=== PATIENT | female | born 1990 | race Caucasian/White ===

== ENCOUNTER → 2019-07-27 13:20 | Outpatient (CLI) | payer OTHER, SELFPAY ==
--- NOTE | 2019-07-27 13:22 | MM_ITS ---
PROCEDURE: MM DIG MAMM BI DX W/CAD CLINICAL INDICATION: NIPPLE DISCHARGE, HIDRADENITIS, NODULE Bloody nipple discharge COMPARISON: US BREAST LT COMPLETE from 07/27/2019 US BREAST RT COMPLETE from 07/27/2019 TECHNIQUE: Standard images performed along with spot compression views and bilateral breast ultrasound. FINDINGS: Average fibroglandular tissue. No malignant appearing mass or malignant-appearing microcalcification. There is a well-circumscribed or oil cyst measuring 11 mm in the right breast inferior to the areolar region Right breast ultrasound: 1 cm well-circumscribed nodule anechoic with posterior shadowing consistent with a oil cyst noted on the mammogram. This is at 3 o'clock near the nipple Left breast ultrasound: No cystic or solid lesions evident. IMPRESSION: Benign findings. No evidence of malignancy. BI-RAD Category: 2 Benign Finding(s) FOLLOW-UP: 1YR 1 Year Follow-up (A letter has been sent to the patient regarding results of the study.) Dictated by: Ash Elias MD 07/29/2019 12:12 Electronically signed by Ash Elias MD in [place] 07/29/2019 12:12
== END ==
PROVIDERS: PCP Emergency Medicine; Visit Provider Nurse Practitioner
DX: N64.52 Nipple discharge (principal); L73.2 Hidradenitis suppurativa; N63.41 Unspecified lump in right breast, subareolar
CPT/HCPCS: 76641; 77066

== ENCOUNTER → 2019-11-06 13:10 | Outpatient (CLI) | payer OTHER, SELFPAY ==
[2019-11-06 14:27] LABS: Basophils # 0.1 K/mm3 (0-0.2); Basophils % 0.8 % (0.1-2.0); Eosinophils # 0.4 K/mm3 (0.0-0.4); Eosinophils % 5.5 % (0.1-12.0); Hematocrit 41.6 % (37.0-47.0); Hemoglobin 13.4 g/dL (12.2-16.2); Lymphocytes # 3.1 K/mm3 (0.7-4.5); Lymphocytes % 38.1 % (10-50); Mean Corpuscular HGB Conc 32.2 g/dL (31.8-35.4); Mean Corpuscular Hemoglobin 30.8 pg (27.0-31.2); Mean Corpuscular Volume 95.6 fl (81-99); Mean Platelet Volume 8.1 fl (7.4-10.4); Monocytes # 0.5 K/mm3 (0.1-1.0); Monocytes % 6.2 % (1.7-9.3); Neutrophils % 49.3 % (37.0-80.0); Platelet Count 441 K/mm3 (142-424); Red Blood Count 4.34 M/mm3 (4.20-5.40); Red Cell Distribution Width 13.9 % (11.5-17.5); White Blood Count 8.1 K/mm3 (4.8-10.8)
[2019-11-06 14:41] LABS: Chloride 104 mmol/L (98-107); Sodium 138 mmol/L (136-145)
[2019-11-06 14:44] LABS: Blood Urea Nitrogen 7 mg/dl (7-17); Carbon Dioxide 28 mmol/L (22.0-30.0); Estimated Glomerular Filt Rate 75 ml/min (>60); GFR (African American) 90 ML/MIN (>60)
[2019-11-06 14:45] LABS: Calcium 9.7 mg/dl (8.4-10.2); Glucose 88 mg/dl (74-100)
== END ==
PROVIDERS: Surgery; Visit Provider Surgery
DX: Z01.818 Encounter for other preprocedural examination (principal); N61.1 Abscess of the breast and nipple
CPT/HCPCS: 36415; 80048; 85025; 86850

== ENCOUNTER 2019-11-08 12:53 | Outpatient (CLI) | payer OTHER, SELFPAY | END 2019-11-08 13:10 | disposition home or self-care (01) | LOC: INF 12:53 | PROVIDERS: Visit Provider Surgery | DX: N61.1 Abscess of the breast and nipple (principal); Z48.00 Encounter for change or removal of nonsurgical wound dressing | CPT/HCPCS: G0463 ==

== ENCOUNTER 2019-11-11 13:43 | Outpatient (CLI) | payer OTHER, SELFPAY ==
[2019-11-11 13:43] VITALS: BP 119/80; RESP 20; O2SAT 96
[2019-11-11 13:50] VITALS: RESP 20; O2SAT 96
--- NOTE | 2019-11-11 15:08 | PC.NURSE ---
dressing change to left areola. minimal amount of packing removed and replaced. pt tolerated well.
== END 2019-11-11 13:50 | disposition home or self-care (01) ==
LOC: INF 13:45
PROVIDERS: PCP Family Medicine; Visit Provider Surgery
DX: Z48.01 Encounter for change or removal of surgical wound dressing (principal); N61.1 Abscess of the breast and nipple
CPT/HCPCS: G0463

== ENCOUNTER 2019-11-12 14:46 | Outpatient (CLI) | payer OTHER, SELFPAY ==
[2019-11-12 14:50] VITALS: RESP 22
[2019-11-12 15:20] VITALS: RESP 20
== END 2019-11-12 15:25 | disposition home or self-care (01) ==
LOC: INF 14:47
PROVIDERS: PCP Family Medicine; Visit Provider Surgery
DX: N61.1 Abscess of the breast and nipple (principal); Z48.01 Encounter for change or removal of surgical wound dressing
CPT/HCPCS: G0463

== ENCOUNTER 2019-11-13 13:28 | Outpatient (CLI) | payer OTHER, SELFPAY ==
--- NOTE | 2019-11-13 13:30 | PC.NURSE ---
1330-spoke with bj in 's office that pt's wound is healing well, no drainage, less than 1/4 inch of packing in wound. per delta from amberly's office ok to stop dressing changes; have pt clean in shower and cover with bandaid; f/u appointment 11/17/19 @ 0198.
== END 2019-11-13 13:37 | disposition home or self-care (01) ==
LOC: INF 13:28
PROVIDERS: Visit Provider Surgery
DX: N61.1 Abscess of the breast and nipple (principal)

== ENCOUNTER 2021-03-13 21:16 | Emergency (ER) | payer OTHER, SELFPAY ==
[2021-03-13 21:27] VITALS: PULSE 83; RESP 18; TEMP 36.8; O2SAT 98; BMI 50.1
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
[2021-03-13 22:33] VITALS: BP 121/70; PULSE 73; RESP 16; TEMP 36.8; O2SAT 99
== END 2021-03-13 22:34 | disposition home or self-care (01) ==
PROVIDERS: Emergency Provider Emergency Medicine; PCP Nurse Practitioner Family
DX: T76.21XA Adult sexual abuse, suspected, initial encounter (principal); F17.210 Nicotine dependence, cigarettes, uncomplicated
CPT/HCPCS: 99281

== ENCOUNTER 2021-05-30 09:44 | Emergency (ER) | payer OTHER, SELFPAY ==
[2021-05-30 09:50] VITALS: BP 117/54; PULSE 125; RESP 24; TEMP 36.9; O2SAT 98; BMI 51.0
--- NOTE | 2021-05-30 10:37 | HMH.EDUTC ---
[facility] [place] Clinical Impression: Bronchitis Sinusitis Qualifiers: Sinusitis location: unspecified location Chronicity: unspecified Qualified Code(s): J32.9 - Chronic sinusitis, unspecified Disposition: Home, Self-Care Condition on Discharge: Good Instructions: Sinusitis, Acute Bronchitis, DI for Sinusitis Additional Instructions: ? Start antibiotic today. Be sure to complete entire prescription even if feeling better ? Monitor temp. Tylenol every 4 hours as needed and / or ibuprofen every 6 hours as needed ( As long as your primary care physician has told you that it ok to take both. For fever/aches/pains ER if no less than 101 despite Tylenol or Motrin ? Humidifier/vaporizer or hot steamy shower ? Inhaler every 4-6 hours as needed like we discussed. If unsure how to use it, ask pharmacist to demonstrate how. Should help open airways and improve cough, wheezing, and shortness of breath ? Mucinex during the day for your cough and cough suppressant only at night. Be sure to drink lots of water. Insurance may not cover a prescriptions for mucinex. Might be cheaper to get 400mg tablets and take 2 tablet in the morning, mid-day and evening with lots of water. *Start steroid today. Helps with inflammation therefore, cough and wheezing. Follow directions on the package. Reviewed side effects. Patient reports taking them before. Follow up IMMEDIATELY for new or worsening of symptoms OR no noticeable improvement over the next 48-72 hours. 911 immediately for any life threatening symptoms such as chest pain or difficulty breathing Prescriptions: predniSONE [Deltasone 10mg tablet] 10 mg PO BID 5 Days #10 tab Transmission Status: Received by [id number] guaiFENesin [Mucinex 600mg tablet] 1 - 2 mg PO BID PRN #20 tab PRN Reason: Congestion Transmission Status: Received by [facility] Azithromycin [Z-Catalino 250mg Tab] 250 mg PO DIRECTED #6 tab Transmission Status: Received by [facility] Referrals: Katina Scott PA [Primary Care Provider] - As needed Forms: Work/School Release Time of Disposition: 10:59 Medical Decision Making - Pawan Inquiry Pt receiving controlled substance: No Pawan was queried for this patient: No Vital Signs: 05/30/21 09:50 05/30/21 10:55 Temperature 98.4 F 98.4 F Temperature Source Oral Pulse Rate 125 H Pulse Rate [Right Brachial] 125 H Respiratory Rate 24 24 Blood Pressure 117/54 L Blood Pressure [Right Arm] 117/54 L Blood Pressure Mean [Right Arm] 75 Blood Pressure Source [Right Arm] Automatic Cuff Blood Pressure Position [Right Arm] Sitting 02 Sat by Pulse Oximetry 98 Oxygen Delivery Method Room Air [facility] [place] - General Stated complaint: cough Time Seen by Provider: 05/30/21 10:37 Mode of Arrival: Ambulatory Source of Information: Patient Limitations: No Limitations Description of Symptoms (Recalled from Triage Doc. by RN): PATIENT C/O PRODUCTIVE COUGH AND CONGESTION X 2 DAYS HEENT Symptoms (Recalled from RN notes): No Resp Symptoms (Recalled from RN notes): Yes Skin Symptoms (Recalled from RN notes): No MS Symptoms (Recalled from RN notes): No Functional Status (Recalled from RN notes): WNL - History of Present Illness Provider Complaint: Patient states that she has been having some sinus pressure, cough that is productive at times and cough worse when she lays down States that she was tested for COVID about 2 days ago and it was negative States that she feel like she has sinus congestion that is trying to move into her chest and wanted to get it checked before it got too bad - Related Data Home Medications Medication Instructions Recorded Confirmed Amitriptyline HCl [Elavil 25mg 25 mg PO DAILY 05/30/21 05/30/21 tablet] Cariprazine HCl [Vraylar] 3 mg PO DAILY 05/30/21 05/30/21 buPROPion HCL [Bupropion HCl Sr] 150 mg PO BID 05/30/21 05/30/21 Previous Rx's Medication Instructions Recorded Azithromycin [Z-Catalino 250mg Tab
[2021-05-30 10:55] VITALS: BP 117/54; PULSE 125; RESP 24; TEMP 36.9; O2SAT 98
== END 2021-05-30 11:00 | disposition home or self-care (01) ==
PROVIDERS: Emergency Provider Nurse Practitioner; PCP Nurse Practitioner Family
DX: J40 Bronchitis, not specified as acute or chronic (principal); J32.9 Chronic sinusitis, unspecified
CPT/HCPCS: 99202; G0463

== ENCOUNTER 2022-07-28 09:29 | Emergency (ER) | payer OTHER, SELFPAY ==
[2022-07-28 09:57] VITALS: BP 127/77; PULSE 89; RESP 16; TEMP 37.3; O2SAT 99; BMI 51.0
[2022-07-28 10:05] LABS: UTC Strep Screen (Rapid) Negative (Negative)
--- NOTE | 2022-07-28 10:16 | EXP.UTC ---
Discharge Plan Disposition Patient Disposition: Home, Self-Care Condition: Good Prescriptions Prescriptions: New fluticasone propionate [fluticasone propionate] 50 mcg/actuation spray,suspension 1 spray intranasal DAILY Qty: 9.9 0RF No Action amitriptyline 25 MG tablet 25 mg PO DAILY cariprazine 3 MG capsule 3 mg PO DAILY bupropion HCl (smoking deter) 150 MG tablet extended release 12 hr 150 mg PO BID azithromycin 250 MG tablet 250 mg PO DIRECTED Qty: 6 0RF Rx Instructions: Take two (2) tablets on day #1, then one (1) tablet day #2 thru #5 guaifenesin 600 MG tablet extended release 12hr 1 - 2 mg PO BID PRN (Reason: Congestion) Qty: 20 0RF prednisone 10 MG tablet 10 mg PO BID 5 Days Qty: 10 0RF Referrals Follow up/Referrals: Katina Scott PA [Primary Care Provider] - See instructions Activity Restrictions/Add. Instructions Additional Instructions/Restrictions: No sign of a bacterial infection. Likely viral. Viruses can take 7-14 days to run their course. Nasal saline and bulb syringe or nose Celestina to remove nasal drainage to help with nasal congestion. Hard to eat, drink, sleep with nasal congestion so important to keep this cleaned out. Monitor temp. Tylenol or Motrin as needed for pain or fever Encourage fluids, water, Gatorade, Powerade, Pedialyte if infant/toddler/child Warm salt water gargles Warm fluids Sore throat lozenges Sleep elevated Humidifier/vaporizer Follow-up immediately for new or worsening symptoms or no noticeable improvement over the next 48-72 hours. Clinical Impressions Clinical Impression: Upper respiratory infection, viral Instructions Patient Instructions: DI for Viral Upper Respiratory Infection -- Adult Discharge ED Provider: Clair ([facility])[place] [facility] [place] General Stated complaint: Sore throat, congestion, ear pain Mode of Arrival: Ambulatory Source of Information: Patient Limitations: No Limitations Time Seen by Provider: 07/28/22 10:16 Description of Symptoms (Recalled from Triage Doc. by RN): pt comes in with c/o congestion, bilateral ear ache, sore throat. symptoms began wednesday night. HEENT Symptoms (Recalled from RN notes): Yes Resp Symptoms (Recalled from RN notes): Yes Skin Symptoms (Recalled from RN notes): No MS Symptoms (Recalled from RN notes): No Functional Status (Recalled from RN notes): n/a History of Present Illness Provider Complaint: 32 yr old female presents with c/o congestion, bilateral ear ache, sore throat. symptoms began Wednesday night. pt states her kids have flu and strep Related Data Home Medications Medication Instructions Recorded Confirmed amitriptyline 25 mg tablet 25 mg PO DAILY . 05/30/21 05/30/21 bupropion HCl (smoking deter) 150 150 mg PO BID . 05/30/21 05/30/21 mg tablet,12 hr sustained-release(smoking deterrent) cariprazine 3 mg capsule 3 mg PO DAILY . 05/30/21 05/30/21 Previous Rx's Medication Instructions Recorded azithromycin 250 mg tablet 250 mg PO DIRECTED #6 tabs 05/30/21 guaifenesin 600 mg tablet, 1 - 2 mg PO BID PRN Congestion #20 05/30/21 extended release 12 hr tabs prednisone 10 mg tablet 10 mg PO BID 5 days #10 tabs 05/30/21 fluticasone propionate 50 1 spray intranasal DAILY #9.9 mL 07/28/22 mcg/actuation nasal spray,suspension Allergies Allergy/AdvReac Type Severity Reaction Status Date / Time No Known Allergies Allergy Verified 07/28/22 10:00 Worker's Comp Is this a Worker's Comp case?: No [facility] Disclaimer: The information contained in this section may have been updated after the patient was seen, as this information can be updated by other users. Social History , [employer]) Smoking Status: Current every day smoker tobacco type: cigarettes packs per day: 1 alcohol intake: current substance use type: denies use current occupational status: employed Travel in the last 8 weeks:
[2022-07-28 10:34] VITALS: BP 127/77; PULSE 89; RESP 16; TEMP 37.3
== END 2022-07-28 10:35 | disposition home or self-care (01) ==
PROVIDERS: Emergency Provider Nurse Practitioner Family; PCP Nurse Practitioner Family
DX: J06.9 Acute upper respiratory infection, unspecified (principal)
CPT/HCPCS: 87275; 87276; 87880; 99212; G0463

== ENCOUNTER 2022-11-24 08:50 | Emergency (ER) | payer OTHER, SELFPAY ==
[2022-11-24 09:00] VITALS: BP 148/86; PULSE 72; RESP 20; TEMP 37; O2SAT 98; BMI 43.7
--- NOTE | 2022-11-24 09:34 | EXP.UTC ---
Discharge Plan Disposition Patient Disposition: Home, Self-Care Condition: Good Prescriptions Prescriptions: New clindamycin HCl 300 mg capsule 300 mg PO Q8H 10 Days Qty: 30 0RF No Action buspirone 10 mg tablet 10 mg PO DAILY bupropion HCl 150 mg tablet extended release 24 hr 150 mg PO DAILY cariprazine 3 MG capsule 3 mg PO DAILY Referrals Follow up/Referrals: Katina Scott PA [Primary Care Provider] - See instructions Beni Álvraez MD [Staff Physician] - See instructions Activity Restrictions/Add. Instructions Additional Instructions/Restrictions: *Start antibiotic(s) immediately and be sure to take as ordered for the FULL length of time although you may be feeling better or start to see improvement in the next 24-48 hours *Monitor closely. Outlined redness so that you can monitor easier. Follow up immediately for new or worsening symptoms including but not limited to redness, swelling, streaking from site fever or chills. *Warm compress 15 minutes 3-4 times day *Never squeeze or pop these on your own. Seek immediate medical attention next time this occurs *Monitor Temp. Tylenol every 4 hours as needed and ibuprofen every 6 hours as needed (as long as your primary care doctor has told you that it is ok to take both. For fever, aches, pain. ER if no less that 101 despite Tylenol and ibuprofen ?Follow up with your family doctor/primary care physician in the next 48-72 hours if no improvement Call the General surgery office and make appointment Clinical Impressions Clinical Impression: Abscess of breast, right Instructions Patient Instructions: DI for Skin Abscess, Clindamycin Discharge ED Provider: Denise Washington [facility] General Stated complaint: RT breast inflammation Mode of Arrival: Ambulatory Source of Information: Patient Limitations: No Limitations Time Seen by Provider: 11/24/22 09:34 Description of Symptoms (Recalled from Triage Doc. by RN): right breast infection red and swollen HEENT Symptoms (Recalled from RN notes): No Resp Symptoms (Recalled from RN notes): No Skin Symptoms (Recalled from RN notes): Yes MS Symptoms (Recalled from RN notes): No Functional Status (Recalled from RN notes): n/a History of Present Illness Provider Complaint: Patient states that she noticed she had a hard area close to her nipple on her right breast that is starting to get larger and more red States that she has hx of breast abscess in her left breast that was similar to what she has now and had to see general surgery to have I&D of it so she was hoping to catch it early to get it treated Denies fever, denies chills Related Data Home Medications Medication Instructions Recorded Confirmed cariprazine 3 mg capsule 3 mg PO DAILY . 05/30/21 11/24/22 bupropion HCl 150 mg 24 hr tablet, 150 mg PO DAILY . 11/24/22 11/24/22 extended release buspirone 10 mg tablet 10 mg PO DAILY . 11/24/22 11/24/22 Previous Rx's Medication Instructions Recorded clindamycin HCl 300 mg capsule 300 mg PO Q8H 10 days #30 caps 11/24/22 Allergies Allergy/AdvReac Type Severity Reaction Status Date / Time No Known Allergies Allergy Verified 11/24/22 09:19 Worker's Comp Is this a Worker's Comp case?: No [facility] Disclaimer: The information contained in this section may have been updated after the patient was seen, as this information can be updated by other users. Social History Smoking Status: Current every day smoker tobacco type: cigarettes packs per day: 1 alcohol intake: current substance use type: denies use current occupational status: employed Travel in the last 8 weeks: None household members: spouse housing: house current occupation: appliance repair current occupational exposures/hazards: No caffeine: Yes ROS Obtained: Yes All systems reviewed & no additional complaints except as documented and Yes Systems reviewed as
[2022-11-24 09:46] VITALS: BP 148/86; PULSE 72; RESP 20; TEMP 37; O2SAT 98
== END 2022-11-24 09:45 | disposition home or self-care (01) ==
PROVIDERS: Emergency Provider Nurse Practitioner; PCP Nurse Practitioner Family
DX: N61.1 Abscess of the breast and nipple (principal); F17.210 Nicotine dependence, cigarettes, uncomplicated
CPT/HCPCS: 99212; 99214; G0463

== ENCOUNTER 2023-01-18 23:21 | Emergency (ER) | payer OTHER, SELFPAY ==
[2023-01-18 23:32] VITALS: BP 169/89; PULSE 103; RESP 16; TEMP 37; O2SAT 100; BMI 56.7
--- NOTE | 2023-01-18 23:44 | HMH.EDSKAF ---
Discharge Plan Disposition Patient Disposition: Home, Self-Care Prescriptions Prescriptions: New sulfamethoxazole-trimethoprim [Bactrim DS] 800-160 mg Tablet 1 tab PO Q12H Qty: 20 0RF cefdinir [cefdinir] 300 mg capsule 300 mg PO BID Qty: 20 0RF ketorolac 10 mg tablet 10 mg PO Q8H PRN (Reason: pain) 3 Days Qty: 10 0RF No Action buspirone 10 mg tablet 10 mg PO DAILY bupropion HCl 150 mg tablet extended release 24 hr 150 mg PO DAILY Referrals Follow up/Referrals: Katina Scott PA [Primary Care Provider] - See instructions Clinical Impressions Clinical Impression: Mastitis in female Instructions Patient Instructions: DI for Mastitis Discharge ED Provider: Alanna (ED)Tyrone Skin/Abscess/FB HPI General Chief complaint: Skin/Abscess/Foreign Body Stated complaint: Right breast infected Time Seen by Provider: 01/18/23 23:35 Mode of Arrival: Ambulatory Source of Information: Patient and Medical Record Limitations: No Limitations Description of Symptoms (Recalled from ER Triage Doc. by RN): Pt presents to ed c c/o right breast redness and pain. Redness began 3 days ago. Pain began today. Patient was seen in [facility] in November for infection in the same breast and was given antibiotics. Pt states that she didnt finish her antibiotics at that time so she began to take them (Clindamycin) again 3 days ago. States that the pain has gotten so severe that she is unable to sleep. History of Present Illness HPI narrative: rt breast reddness and pain w/o d/c - has happened in past - sx over the last 3 days MD complaint: other (breast infection) Onset (ago): day(s) Severity: moderate Quality: sharp Consistency: intermittent Associated symptoms: denies other symptoms Related Data Home Medications Medication Instructions Recorded Confirmed bupropion HCl 150 mg 24 hr tablet, 150 mg PO DAILY Depression 11/24/22 01/18/23 extended release buspirone 10 mg tablet 10 mg PO DAILY Anxiety 11/24/22 01/18/23 Previous Rx's Medication Instructions Recorded cefdinir 300 mg capsule 300 mg PO BID #20 caps 01/19/23 ketorolac 10 mg tablet 10 mg PO Q8H PRN pain 3 days #10 01/19/23 tabs sulfamethoxazole 800 1 tab PO Q12H #20 tabs 01/19/23 mg-trimethoprim 160 mg tablet (Bactrim DS) Allergies Allergy/AdvReac Type Severity Reaction Status Date / Time No Known Allergies Allergy Verified 11/24/22 09:19 [facility] Disclaimer: The information contained in this section may have been updated after the patient was seen, as this information can be updated by other users. Social History Smoking Status: Current every day smoker tobacco type: cigarettes packs per day: 1 alcohol intake: current substance use type: denies use current occupational status: employed Travel in the last 8 weeks: None household members: spouse housing: house current occupation: appliance repair current occupational exposures/hazards: No caffeine: Yes ROS Obtained: Yes All systems reviewed & no additional complaints except as documented Physical Exam General General appearance: alert Head Head exam: normocephalic Eye Eye exam: Present PERRL and EOMI ENT ENT exam: Present mucous membranes moist Neck Neck exam: Present trachea midline Expanded Chest Exam Breast: right: erythema, swelling and tenderness Respiratory Respiratory exam: Absent respiratory distress Cardiovascular Cardiovascular exam: Present regular rate Abdominal Exam Abdominal exam: Present soft Extremities Exam Extremities exam: Present full ROM Neurological Exam Neurological exam: Present alert, oriented X3 and CN II-XII intact; Absent motor sensory deficit Psychiatric Psychiatric exam: Present normal affect Skin Skin exam: Present other (cellulitis rt breast ) Medical Decision Making Medical Records Medical records reviewed: Yes I reviewed the patient's medical records. Feli
[2023-01-18 23:59] LABS: Basophils # 0.1 K/mm3 (0-0.2); Basophils % 0.6 % (0.1-2.0); Eosinophils # 0.5 K/mm3 (0.0-0.4); Eosinophils % 3.5 % (0.1-12.0); Hematocrit 36.7 % (37.0-47.0); Hemoglobin 11.5 g/dL (12.2-16.2); Lymphocytes # 4.3 K/mm3 (0.7-4.5); Lymphocytes % 29.4 % (10-50); Mean Corpuscular HGB Conc 31.3 g/dL (31.8-35.4); Mean Corpuscular Hemoglobin 30.8 pg (27.0-31.2); Mean Corpuscular Volume 98.2 fl (81-99); Mean Platelet Volume 7.7 fl (7.4-10.4); Neutrophils # 8.8 K/mm3 (1.8-7.8); Neutrophils % 59.6 % (37.0-80.0); Platelet Count 324 K/mm3 (142-424); Red Blood Count 3.74 M/mm3 (4.20-5.40); Red Cell Distribution Width 16.6 % (11.5-17.5); White Blood Count 14.8 K/mm3 (4.8-10.8)
[2023-01-19 00:11] LABS: Lactic Acid 1.6 mmol/L (0.7-2.1)
[2023-01-19 00:12] LABS: Alanine Aminotransferase 29 U/L (12-78); Albumin Level 3.5 g/dl (3.5-5.0); Albumin/Globulin Ratio 1.1 (1.1-1.8); Alkaline Phosphatase 67 U/L (38-126); Anion Gap 13.3 mEq/L (5-15); Aspartate Amino Transferase 29 U/L (14-36); Bilirubin,Total 0.2 mg/dl (0.2-1.3); Blood Urea Nitrogen 4 mg/dl (7-17); Calcium 8.2 mg/dl (8.4-10.2); Carbon Dioxide 27 mmol/L (22.0-30.0); Chloride 102 mmol/L (98-107); Creatinine Clearance Estimated 77 mL/min (50-200); Estimated Glomerular Filt Rate 84 ml/min (>60); GFR (African American) 101 ML/MIN (>60); Globulin 3.2 g/dL (1.3-3.2); Glucose 99 mg/dl (74-100); Potassium 3.3 mmoL/L (3.5-5.1); Sodium 139 mmol/L (136-145); Total Protein,Serum 6.7 g/dl (6.3-8.2)
--- NOTE | 2023-01-19 00:40 | PC.NURSE ---
Spoke to Horace with [facility] pharmacy. He states 2.5g Vancomycin NOW dose for one time
[2023-01-19 03:00] VITALS: BP 168/88; PULSE 88; RESP 18; TEMP 36.7; O2SAT 98
== END 2023-01-19 03:22 | disposition home or self-care (01) ==
PROVIDERS: Emergency Provider Emergency Medicine; PCP Nurse Practitioner Family
DX: N61.0 Mastitis without abscess (principal); F17.210 Nicotine dependence, cigarettes, uncomplicated
CPT/HCPCS: 80053; 83605; 85025; 87040; 96361; 96365; 96375; 99284; 99285; J3370

== ENCOUNTER 2023-01-20 17:17 | Inpatient (IN) | payer OTHER, SELFPAY ==
[2023-01-20 17:18] VITALS: BP 166/58; PULSE 79; RESP 17; TEMP 36.7; O2SAT 99; BMI 56.2
--- NOTE | 2023-01-20 17:29 | HMH.EDGENADL ---
Discharge Plan Disposition Patient Disposition: Admitted Chief Complaint: Wound/Laceration Prescriptions Prescriptions: No Action buspirone 10 mg tablet 10 mg PO DAILY bupropion HCl 150 mg tablet extended release 24 hr 150 mg PO DAILY sulfamethoxazole-trimethoprim [Bactrim DS] 800-160 mg Tablet 1 tab PO Q12H Qty: 20 0RF cefdinir [cefdinir] 300 mg capsule 300 mg PO BID Qty: 20 0RF ketorolac 10 mg tablet 10 mg PO Q8H PRN (Reason: pain) 3 Days Qty: 10 0RF Referrals Follow up/Referrals: Katina Scott PA [Primary Care Provider] - See instructions Clinical Impressions Clinical Impression: Mastitis in female Instructions Patient Instructions: DI for Laceration Repair Discharge ED Provider: Luis Samuels Adult HPI General Chief complaint: Wound/Laceration Stated complaint: right breast pain Time Seen by Provider: 01/20/23 17:24 Mode of Arrival: Ambulatory Source of Information: Patient Limitations: No Limitations Description of Symptoms (Recalled from ER Triage Doc. by RN): 32 F presents back to our ED for a worsening right breast pain and infection. She was seen here a few days ago and given IV antibiotics. She was sent home with PO pain medications and 2 oral antibiotics. She feels the infection has spread. History of Present Illness HPI narrative: The patient presents to the emergency department complaining of worsening redness and pain in her right breast. She has had nipple piercings in the past. She has removed these piercings. She was seen in this emergency department 2 days ago and was given intravenous vancomycin and sent home with 2 oral antibiotics. She states that the symptoms have been ongoing for the last 4 days. She has had similar symptoms in the past and was diagnosed with mastitis. She denies breast-feeding. Related Data Home Medications Medication Instructions Recorded Confirmed bupropion HCl 150 mg 24 hr tablet, 150 mg PO DAILY Depression 11/24/22 01/18/23 extended release buspirone 10 mg tablet 10 mg PO DAILY Anxiety 11/24/22 01/18/23 Previous Rx's Medication Instructions Recorded cefdinir 300 mg capsule 300 mg PO BID #20 caps 01/19/23 ketorolac 10 mg tablet 10 mg PO Q8H PRN pain 3 days #10 01/19/23 tabs sulfamethoxazole 800 1 tab PO Q12H #20 tabs 01/19/23 mg-trimethoprim 160 mg tablet (Bactrim DS) Allergies Allergy/AdvReac Type Severity Reaction Status Date / Time No Known Allergies Allergy Verified 11/24/22 09:19 [facility] Disclaimer: The information contained in this section may have been updated after the patient was seen, as this information can be updated by other users. Social History Smoking Status: Current every day smoker tobacco type: cigarettes packs per day: 1 alcohol intake: current substance use type: denies use current occupational status: employed Travel in the last 8 weeks: None household members: spouse housing: house current occupation: appliance repair current occupational exposures/hazards: No caffeine: Yes ROS Obtained: Yes All systems reviewed & no additional complaints except as documented Physical Exam General General appearance: alert Head Head exam: atraumatic Eye Eye exam: Present normal appearance ENT ENT exam: Present normal exam Neck Neck exam: Present normal inspection and full ROM; Absent tenderness or meningismus Chest Chest inspection: Present normal inspection, symmetric chest wall rise and other (There is erythema of the right breast. There is induration without fluctuance under the right areola. There is no axillary lymphadenopathy. The left breast is normal in appearance.); Absent tenderness Respiratory Respiratory exam: Present normal lung sounds bilaterally; Absent respiratory distress or accessory muscle use Cardiovascular Cardiovascular exam: Present regular rate, normal rhythm and normal hear
[2023-01-20 18:09] LABS: Chloride 102 mmol/L (98-107); Potassium 4.1 mmoL/L (3.5-5.1); Sodium 136 mmol/L (136-145)
[2023-01-20 18:12] LABS: Anion Gap 11.1 mEq/L (5-15); Blood Urea Nitrogen 5 mg/dl (7-17); Calcium 8.5 mg/dl (8.4-10.2); Carbon Dioxide 27 mmol/L (22.0-30.0); Creatinine Clearance Estimated 68 mL/min (50-200); Estimated Glomerular Filt Rate 73 ml/min (>60); GFR (African American) 88 ML/MIN (>60); Glucose 83 mg/dl (74-100)
[2023-01-20 18:13] LABS: Basophils # 0.1 K/mm3 (0-0.2); Basophils % 0.5 % (0.1-2.0); Eosinophils # 0.4 K/mm3 (0.0-0.4); Eosinophils % 2.3 % (0.1-12.0); Hematocrit 36.4 % (37.0-47.0); Hemoglobin 11.4 g/dL (12.2-16.2); Lymphocytes # 5.6 K/mm3 (0.7-4.5); Lymphocytes % 29.2 % (10-50); Mean Corpuscular HGB Conc 31.3 g/dL (31.8-35.4); Mean Corpuscular Hemoglobin 30.6 pg (27.0-31.2); Mean Corpuscular Volume 97.7 fl (81-99); Monocytes % 5.3 % (1.7-9.3); Neutrophils # 12.2 K/mm3 (1.8-7.8); Neutrophils % 62.8 % (37.0-80.0); Platelet Count 340 K/mm3 (142-424); Red Blood Count 3.72 M/mm3 (4.20-5.40); Red Cell Distribution Width 16.9 % (11.5-17.5); White Blood Count 19.4 K/mm3 (4.8-10.8)
[2023-01-20 18:16] LABS: MANUAL DIFFERENTIAL MANUAL DIFFERENTIAL (MANUAL DIFF)
[2023-01-20 18:34] LABS: Eosinophils % 2 % (0-3); Lymphocytes % 30 % (10-50); Monocytes % 7 % (2-9); Neutrophils % 61 % (42-76); Total Cells Counted 100
[2023-01-20 18:35] LABS: Platelet Estimate Normal; Poikilocytosis 1+
--- NOTE | 2023-01-20 18:50 | PC.NURSE ---
RCP NOTIFIED OF ADMISSION
[2023-01-20 18:54] LABS: Coronavirus 19, PCR Not Detected (NotDetected); Influenza A, PCR Not Detected (NotDetected); Influenza B, PCR Not Detected (NotDetected)
--- NOTE | 2023-01-20 19:44 | PC.NURSE ---
report given to AMAURY Simental
[2023-01-20 19:45] VITALS: BP 135/76; PULSE 71; RESP 16; TEMP 36.8; O2SAT 98
[2023-01-20 20:00] VITALS: BP 127/81; PULSE 86; RESP 20; TEMP 37.1; O2SAT 100
--- NOTE | 2023-01-20 20:35 | EXP.HP ---
History of Present Illness *Admission Date: 01/20/23 *Reason for visit:: Abscess of right breast *History of present illness: 32 year old female who presented to the ED for c/o right breast pain and failed outpatient therapy treatment. PMHX of anxiety and obesity. The patient presented to the ED at [facility] on 01/19 for same c/o right breast pain with swelling and redness. The redness started three days prior to 01/19. She was given IV vancomycin and sent home with oral cefdinir and Bactrim. The patient returned today to the ED with failure in improvement of condition. She was given IV vancomycin and the ED physician spoke with the hospitalist team for medical admission. The patient was admitted to the medical floor. She has a history of having a similar infection in her left breast that required surgical I and D three years prior. She will be given additional antibiotic coverage and will receive an ultrasound in the A.M and surgical consult. [facility] Disclaimer: The information contained in this section may have been updated after the patient was seen, as this information can be updated by other users. Medical History (Updated 01/20/23 @ 20:57 by ALLYSON Wu) Anxiety and depression Left breast abscess Surgical History (Updated 01/20/23 @ 20:44 by ALLYSON Wu) History of incision and drainage Social History (Updated 01/20/23 @ 22:12 by Jeannette Blanchard RN) Smoking Status: Current every day smoker tobacco type: cigarettes packs per day: 1 alcohol intake: current substance use type: denies use current occupational status: employed Travel in the last 8 weeks: None household members: spouse housing: house current occupation: appliance repair current occupational exposures/hazards: No caffeine: Yes Review of Systems Review of Systems Review of systems:: pertinent systems reviewed and negative unless documented below Constitutional Constitutional: Reports system reviewed and no additional complaints, except as documented Eyes Eyes: Reports system reviewed and no additional complaints, except as documented ENT Ears, Nose, Mouth, and Throat: Reports system reviewed and no additional complaints, except as documented *Cardiovascular Cardiovascular: Reports system reviewed and no additional complaints, except as documented *Respiratory Respiratory: Reports system reviewed and no additional complaints, except as documented *Gastrointestinal Gastrointestinal: Reports system reviewed and no additional complaints, except as documented *Genitourinary Genitourinary: Reports system reviewed and no additional complaints, except as documented *Musculoskeletal Musculoskeletal: Reports system reviewed and no additional complaints, except as documented Integumentary/Breasts Skin/Breast: Reports erythema (right), Reports skin swelling (right) and Reports breast pain (right) *Neurologic Neurologic: Reports system reviewed and no additional complaints, except as documented Psychiatric Psychiatric: Reports system reviewed and no additional complaints, except as documented Endocrine Endocrine: Reports system reviewed and no additional complaints, except as documented Hematologic/Lymphatic Hematologic/Lymphatic: Reports system reviewed and no additional complaints, except as documented Allergic/Immunologic Allergic/Immunologic: Reports system reviewed and no additional complaints, except as documented Meds Home Medications and Allergies Home Medications Medication Instructions Recorded Confirmed Type bupropion HCl 150 mg 24 hr tablet, 150 mg PO AM Mood 11/24/22 01/21/23 History extended release buspirone 10 mg tablet 10 mg PO PM Anxiety 11/24/22 01/21/23 History cariprazine 3 mg capsule (Vraylar) 3 mg PO DAILY Mood 01/20/23 01/20/23 History cefdinir 300 mg capsule 300 mg PO BID Infection 01/20/23 01/20/23 History sulfamethoxazole 800 1 tab PO Q12H Infection 01/20/23 01/20/23 History mg-trimethoprim 160 mg tab
[2023-01-21] VITALS (20 sets, daily range): BP systolic 104–146; BP diastolic 55–92; PULSE 74–94; RESP 16–22; TEMP 36.1–37.3; O2SAT 92–99; BMI 56.5
--- NOTE | 2023-01-21 02:35 | PC.NURSE ---
Pt c/o pain. IV flushed well with NS but once Toradol was pushed into line, pt c/o of burning sensation. IV infiltrated. New IV inserted to left FA and left hand IV removed. Gilbert Ricketts notified - states she will order a one time dose 30mg Toradol to be given now.
--- NOTE | 2023-01-21 06:30 | US_ITS ---
PROCEDURE INFORMATION: Exam: US Right Breast, Complete, Abscess Evaluation Exam date and time: 01/21/2023 7:10 AM Age: 32 years old Clinical indication: Right; Breast pain; Additional info: Abcess . Patient currently on antibiotics TECHNIQUE: Imaging protocol: Right Ultrasound of the breast with image documentation. All quadrants and retroareolar regions evaluated. Exam focused on the search and evaluation for abscess. Exam is an emergent request and a non-BIRADS study. COMPARISON: US BREAST RT COMPLETE 07/27/2019 2:34 PM FINDINGS: Sonographic images of the right breast including the retroareolar region, all 4 quadrants and the axilla demonstrates diffuse breast edema and skin thickening with a focal complex fluid collection in the immediate right retroareolar region . The complex cystic mass extends to the overlying nipple areolar complex and measures approximately 4.3 x 4.1 x 4.1 cm in dimension. No axillary adenopathy. IMPRESSION: Diffuse breast edema with a complex fluid collection in the immediate right retroareolar region. Findings are most consistent with an abscess. Surgical consultation for potential incision and drainage/biopsy are recommended. ASSESSMENT: BI-RADS Category 4: Suspicious
[2023-01-21 06:46] LABS: Basophils # 0.1 K/mm3 (0-0.2); Basophils % 0.4 % (0.1-2.0); Eosinophils # 0.4 K/mm3 (0.0-0.4); Eosinophils % 2.6 % (0.1-12.0); Hemoglobin 11.2 g/dL (12.2-16.2); Lymphocytes # 3.3 K/mm3 (0.7-4.5); Lymphocytes % 21.5 % (10-50); Mean Corpuscular HGB Conc 31.1 g/dL (31.8-35.4); Mean Corpuscular Hemoglobin 30.8 pg (27.0-31.2); Mean Corpuscular Volume 99.1 fl (81-99); Mean Platelet Volume 7.9 fl (7.4-10.4); Monocytes # 0.9 K/mm3 (0.1-1.0); Neutrophils # 10.7 K/mm3 (1.8-7.8); Neutrophils % 69.6 % (37.0-80.0); Platelet Count 313 K/mm3 (142-424); Red Blood Count 3.63 M/mm3 (4.20-5.40); White Blood Count 15.4 K/mm3 (4.8-10.8)
[2023-01-21 06:49] LABS: MANUAL DIFFERENTIAL MANUAL DIFFERENTIAL (MANUAL DIFF)
[2023-01-21 06:55] LABS: Chloride 105 mmol/L (98-107)
[2023-01-21 06:56] LABS: Potassium 4.2 mmoL/L (3.5-5.1); Sodium 138 mmol/L (136-145)
[2023-01-21 06:58] LABS: Alanine Aminotransferase 37 U/L (12-78); Alkaline Phosphatase 89 U/L (38-126); Anion Gap 8.2 mEq/L (5-15); Aspartate Amino Transferase 49 U/L (14-36); Bilirubin,Total 0.3 mg/dl (0.2-1.3); Blood Urea Nitrogen 6 mg/dl (7-17); Carbon Dioxide 29 mmol/L (22.0-30.0); Creatinine Clearance Estimated 68 mL/min (50-200); Estimated Glomerular Filt Rate 73 ml/min (>60); GFR (African American) 88 ML/MIN (>60)
[2023-01-21 06:59] LABS: Albumin Level 3.1 g/dl (3.5-5.0); Albumin/Globulin Ratio 0.9 (1.1-1.8); Calcium 7.9 mg/dl (8.4-10.2); Globulin 3.4 g/dL (1.3-3.2); Glucose 84 mg/dl (74-100); Magnesium 1.9 mg/dl (1.6-2.3); Total Protein,Serum 6.5 g/dl (6.3-8.2)
[2023-01-21 07:07] LABS: Anisocytosis 1+; Eosinophils % 4 % (0-3); Lymphocytes % 26 % (10-50); Macrocytosis 1+; Monocytes % 4 % (2-9); Neutrophils % 66 % (42-76); Ovalocytes 1+; Platelet Estimate Normal; Total Cells Counted 100
--- NOTE | 2023-01-21 07:36 | EXP.SURG.CON ---
History of Present Illness *Admission Date: 01/20/23 *History of present illness: Patient is a 32-year-old female from [place] whom I had seen in the past and October 2019 for left breast abscess. At that time she underwent attempted aspiration under anesthesia with limited incision and drainage. She had previous history of bilateral nipple piercings. She had remove these after her last infection. Recently she had them pierced once again. She developed right breast redness and pain and removed them. She presented to the emergency department on 01/18/2023 with complaints of right breast redness and pain. This had begun approximately 3 days prior to presentation she attempted to take some leftover clindamycin. At that time her white blood cell count was 14,800. She was diagnosed with mastitis and given dose of vancomycin and prescription for cefdinir and Bactrim. She presented back to the emergency department yesterday on 01/20/2023 with worsening right breast pain. White blood cell count was 19,400. She was admitted to the hospitalist service and surgical consultation was ordered. Patient is a smoker. Not breast-feeding. [facility] Disclaimer: The information contained in this section may have been updated after the patient was seen, as this information can be updated by other users. Medical History (Updated 01/20/23 @ 20:57 by ALLYSON Wu) Anxiety and depression Left breast abscess Surgical History (Updated 01/20/23 @ 20:44 by ALLYSON Wu) History of incision and drainage Social History (Updated 01/20/23 @ 22:12 by Jeannette Blanchard RN) Smoking Status: Current every day smoker tobacco type: cigarettes packs per day: 1 alcohol intake: current substance use type: denies use current occupational status: employed Travel in the last 8 weeks: None household members: spouse housing: house current occupation: appliance repair current occupational exposures/hazards: No caffeine: Yes Review of Systems *Neurologic Neurologic: Reports system reviewed and no additional complaints, except as documented Meds Home Medications and Allergies Home Medications Medication Instructions Recorded Confirmed Type bupropion HCl 150 mg 24 hr tablet, 150 mg PO AM Mood 11/24/22 01/21/23 History extended release buspirone 10 mg tablet 10 mg PO PM Anxiety 11/24/22 01/21/23 History cariprazine 3 mg capsule (Vraylar) 3 mg PO DAILY Mood 01/20/23 01/20/23 History cefdinir 300 mg capsule 300 mg PO BID Infection 01/20/23 01/20/23 History sulfamethoxazole 800 1 tab PO Q12H Infection 01/20/23 01/20/23 History mg-trimethoprim 160 mg tablet (Bactrim DS) amitriptyline 10 mg tablet 10 mg PO DAILYP PRN Mood 01/21/23 01/21/23 History atomoxetine 60 mg capsule 60 mg PO DAILY Mood 01/21/23 01/21/23 History fluoxetine 40 mg capsule 40 mg PO AM Mood 01/21/23 01/21/23 History folic acid 400 mcg tablet 400 mcg PO DAILY Supplement 01/21/23 01/21/23 History ketorolac 10 mg tablet 10 mg PO Q8H PRN Pain 01/21/23 01/20/23 History New Prescriptions to Start Prescriptions: Allergies Allergy/AdvReac Type Severity Reaction Status Date / Time No Known Allergies Allergy Verified 11/24/22 09:19 Exam (Inpt) Vital signs and Labs for Last 24 Hours: Temp Pulse Resp BP Pulse Ox 99.2 F 80 19 112/67 96 01/21/23 04:00 01/21/23 04:00 01/21/23 04:00 01/21/23 04:00 01/21/23 04:00 Laboratory Results - last 24 hr 01/20/23 17:54: WBC 19.4 H D, RBC 3.72 L, Hgb 11.4 L, Hct 36.4 L, MCV 97.7, MCH 30.6, MCHC 31.3 L, RDW 16.9, Plt Count 340, MPV 8.0, Neut % (Auto) 62.8, Lymph % (Auto) 29.2, [place] % (Auto) 5.3, Eos % (Auto) 2.3, Baso % (Auto) 0.5, Neut # (Auto) 12.2 H, Lymph # (Auto) 5.6 H, [place] # (Auto) 1.0, Eos # (Auto) 0.4, Baso # (Auto) 0.1, Total Counted 100, Neutrophils % (Manual) 61, Lymphocytes % (Manual) 30, Monocytes % (Manual) 7, Eosinophils % (Manual) 2, Platelet Estimate Normal, Poikilocytosis
--- NOTE | 2023-01-21 07:57 | EXP.PHA.CONS ---
Pharmacy Consult Date: 01/21/23 Time: 07:59 Referring provider: DR DIALLO Reason for Consult:: VANCOMYCIN DOSING CONSULT Allergies Allergy/AdvReac Type Severity Reaction Status Date / Time No Known Allergies Allergy Verified 11/24/22 09:19 Home Medications Medication Instructions Recorded Confirmed Type bupropion HCl 150 mg 24 hr tablet, 150 mg PO DAILY Depression 11/24/22 01/20/23 History extended release buspirone 10 mg tablet 10 mg PO DAILY Anxiety 11/24/22 01/20/23 History ketorolac 10 mg tablet 10 mg PO Q8H PRN pain 3 days #10 01/19/23 01/20/23 Rx tabs cariprazine 3 mg capsule (Vraylar) 3 mg PO DAILY MOOD DISORDER 01/20/23 01/20/23 History cefdinir 300 mg capsule 300 mg PO BID ANTIBIOTIC 01/20/23 01/20/23 History sulfamethoxazole 800 1 tab PO Q12H ANTIBIOTIC 01/20/23 01/20/23 History mg-trimethoprim 160 mg tablet (Bactrim DS) New Prescriptions to Start Prescriptions: Height: 1.55 m Weight: 135.851 kg Laboratory Results:: Laboratory Results - last 24 hr 01/20/23 17:54: WBC 19.4 H D, RBC 3.72 L, Hgb 11.4 L, Hct 36.4 L, MCV 97.7, MCH 30.6, MCHC 31.3 L, RDW 16.9, Plt Count 340, MPV 8.0, Neut % (Auto) 62.8, Lymph % (Auto) 29.2, [place] % (Auto) 5.3, Eos % (Auto) 2.3, Baso % (Auto) 0.5, Neut # (Auto) 12.2 H, Lymph # (Auto) 5.6 H, [place] # (Auto) 1.0, Eos # (Auto) 0.4, Baso # (Auto) 0.1, Total Counted 100, Neutrophils % (Manual) 61, Lymphocytes % (Manual) 30, Monocytes % (Manual) 7, Eosinophils % (Manual) 2, Platelet Estimate Normal, Poikilocytosis 1+ 01/20/23 17:54: Sodium 136, Potassium 4.1 D, Chloride 102, Carbon Dioxide 27, Anion Gap 11.1, BUN 5 L, Creatinine 0.90, Estimated Creat Clear 68, Estimated GFR 73, Est GFR ( Amer) 88, Glucose 83, Calcium 8.5 01/20/23 18:50: SARS-CoV-2 (PCR) Not detected, Influenza A Untype (PCR) Not detected, Influenza Type B (PCR) Not detected 01/21/23 06:10: WBC 15.4 H, RBC 3.63 L, Hgb 11.2 L, Hct 36.0 L, MCV 99.1 H, MCH 30.8, MCHC 31.1 L, RDW 17.0, Plt Count 313, MPV 7.9, Neut % (Auto) 69.6, Lymph % (Auto) 21.5, [place] % (Auto) 6.0, Eos % (Auto) 2.6, Baso % (Auto) 0.4, Neut # (Auto) 10.7 H, Lymph # (Auto) 3.3, [place] # (Auto) 0.9, Eos # (Auto) 0.4, Baso # (Auto) 0.1, Total Counted 100, Neutrophils % (Manual) 66, Lymphocytes % (Manual) 26, Monocytes % (Manual) 4, Eosinophils % (Manual) 4 H, Platelet Estimate Normal, Anisocytosis 1+, Macrocytosis 1+, Ovalocytes 1+ 01/21/23 06:10: Sodium 138, Potassium 4.2, Chloride 105, Carbon Dioxide 29, Anion Gap 8.2, BUN 6 L, Creatinine 0.90, Estimated Creat Clear 68, Estimated GFR 73, Est GFR ( Amer) 88, Glucose 84, Calcium 7.9 L, Magnesium 1.9, Total Bilirubin 0.3, AST 49 H D, ALT 37 D, Alkaline Phosphatase 89, Total Protein 6.5, Albumin 3.1 L, Globulin 3.4 H, Albumin/Globulin Ratio 0.9 L Medical History: Medical History (Updated 01/20/23 @ 20:57 by ALLYSON Wu) Anxiety and depression Left breast abscess Assessment and Plan Assessment and plan all Dx Assessment and Plan for all problems:: Pharmacokinetic dosing service Objective: Age: 32 yo Serum creatinine: 0.9 mg/dL Height: 61.0 Inches Weight (kg): 135.851 Diagnosis: CELLULITIS, ABSCESS Assessment: IBW (kg): 47.80 Dosing wt(kg): 83.0 Estimated Creatinine clearance (ml/min): 68.3 CRCL method: Cockcroft and Gault using ibw(default). Drug selected: Vancomycin Loading dose (mg): 2250 MG Vd (liters): 66.4 (factor used: 0.8 L/kg) Marko (hr-1): 0.061 Half life (hrs): 11.36 CLvanco=?? 4.050 L/hr Recommended dose: 1750 mg Interval: 18 hrs Infusion time (hrs): 2.0 Predicted peak (mcg/mL): 37.2 Predicted trough (mcg/mL): 14.02 Adjusted body weight was selected for vancomycin dosing. Recommendations: Give Vancomycin 1750 mg q 18 hrs with an expected Cpeak of 37.2 mcg/ml and an ex
--- NOTE | 2023-01-21 08:52 | PC.NURSE ---
COURTESY TECH NOTE; ROUNDED ON PT, PT DENIED NEED FOR DRINK, ASSISTANCE WITH RESTROOM, AND NEED TO REPOSITION. CALL LIGHT WITHIN REACH, NO FURTHER REQUESTS AT THIS TIME JACKIE MINOR
--- NOTE | 2023-01-21 10:26 | PC.NURSE ---
ex in bed with pt, asked him to move to chair. pt gave gown to put on. LR at bedside. all jewelry removed and in labeled cup with lid. 20g LFA SL.
--- NOTE | 2023-01-21 10:56 | HMH.PHAINT1 ---
Pharmacy Intervention Comments: Home medication list verified through external fill history from outside pharmacy and patient interview.
[2023-01-21 11:09] LABS: HCG Qualitative, Serum Negative (Negative)
--- NOTE | 2023-01-21 11:39 | EXP.ANES.CKL ---
[facility] Disclaimer: The information contained in this section may have been updated after the patient was seen, as this information can be updated by other users. Medical History (Updated 01/20/23 @ 20:57 by ALLYSON Wu) Anxiety and depression Left breast abscess Surgical History (Updated 01/20/23 @ 20:44 by ALLYSON Wu) History of incision and drainage Social History (Updated 01/20/23 @ 22:12 by Jeannette Blanchard RN) Smoking Status: Current every day smoker tobacco type: cigarettes packs per day: 1 alcohol intake: current substance use type: denies use current occupational status: employed Travel in the last 8 weeks: None household members: spouse housing: house current occupation: appliance repair current occupational exposures/hazards: No caffeine: Yes [facility] Anesthesia Checklist Patient Identification Patient Identification: Arm Band Structural Data Admitted From: Inpatient Planned Operative Procedure/s: I&D Right Breast Consent for Planned Operative Procedure(s) Verified: Yes Verified Documents: Surgical Consent and History and Physical NPO Status Verified Time NPO: 00:00 Additional verifications Anesthesia Reactions: No Hx Blood Transfusions: No Blood Transfusion Reaction: No Airway Assessment C-Spine Mobility Assessed: Yes TMJ Mobility Assessed: Yes Dentition: Good Dentition Neurological Assessment Level of Consciousness: Awake and Alert Anesthesia Plan Anesthesia Risk discussed: Yes Anesthesia Plan: Verified ASA Class: III Anesthesia Type: General
--- NOTE | 2023-01-21 11:54 | P.OP_ITS ---
Date of procedure: 01/21/23 Pre-op Diagnosis:: Right breast subareolar abscess Post-op Diagnosis:: Same Procedure performed:: Incision and drainage with washout of right subareolar abscess Surgeon:: Beni Álvarez MD MEMBER SERVICE REPRESENTATIVE:: Dave Uribe Anesthesia: LMA Estimated blood loss (mL): 10 Operative findings:: Large subareolar abscess Operative note:: Patient was taken to the operating room. She was given additional preoperative intravenous antibiotic. In the operating room she was placed in a supine position. General anesthesia was induced via LMA. Right breast was prepped and draped in the standard surgical fashion. 18-gauge needle was inserted adjacent to the area of fluctuance at the periareolar location and directed medially towards the area of fluctuance at the subareolar location. Approximately 22 cc of thick yellowish-green pus was aspirated. This was sent for culture. Limited incision was made at this site and the abscess cavity was probed. Abscess cavity was then irrigated. Pressure was held for hemostasis. 1/4 inch SARAH drain was placed into the abscess cavity and secured with a couple of 3-0 nylon sutures to allow for drainage. Some local anesthetic was infiltrated. Clean dry sterile dressing was applied. Condition: stable Disposition: PACU Complications:: None immediately apparent
--- NOTE | 2023-01-21 11:58 | EXP.ANES.I ---
[facility] Anesthesia Record Part I Anesthesia Record I Intake, IV Amount: 200 Estimated blood loss (mL): 5 Urine output (mL): 0 Blood Products used (#): none Blood Pressure: 130/77 SaO2: 98 Pulse Rate: 88 Respiratory Rate: 16 Temperature: 97 F Patient is:: Drowsy and Stable Stable to PACU at:: 12:00
--- NOTE | 2023-01-21 13:51 | EXP.ACUTE.PN ---
Subjective *Date: 01/21/23 *Time: 18:17 Interval history: Patient's pain is stable this morning. Redness still present. Seen by surgery, going for debridement today. No fever overnight. Tolerating IV antibiotics. N.p.o. Medical Exam Vital signs and Labs for Last 24 Hours: Vital Signs Temp Pulse Pulse Resp BP BP Pulse Ox 01/21/23 13:15 92 H 18 137/70 98 01/21/23 13:00 98.4 F 82 18 114/64 98 01/21/23 12:30 97.0 F L 82 18 146/85 H 92 L 01/21/23 12:20 97.0 F L 81 18 145/85 H 92 L 01/21/23 12:10 97.0 F L 85 20 141/70 H 93 L 01/21/23 12:00 97.0 F L 94 H 22 130/77 93 L 01/21/23 12:45 98.4 F 80 18 115/63 97 01/21/23 12:30 98.1 F 85 18 114/69 96 01/21/23 08:00 99.1 F 76 18 112/70 95 01/21/23 04:00 99.2 F 80 19 112/67 96 01/20/23 20:00 98.7 F 86 20 127/81 100 01/20/23 19:45 98.3 F 71 16 135/76 01/20/23 17:18 98.1 F 79 17 166/58 H 99 01/21/23 11:59 97 F L 88 16 130/77 Intake and Output 01/20/23 01/21/23 01/21/23 23:59 07:59 15:59 Intake Total 400 / 600 200 / 600 Output Total 0 / 0 0 / 0 Balance 0 / 400 400 / 600 200 / 600 Intake: Intake, Total IV Amount 400 / 600 200 / 600 Cefepime HCl 2 gm In 0.9 % 100 / 100 Sodium Chloride 100 ml @ 200 mls/hr IV Q12H JESSICA Rx#: [id number] Vancomycin/Water For Inj (Peg) 300 / 300 1.5 gm In 300 ml @ 150 mls/hr IV Q12H JESSICA Rx#:[id number] Output: Output, Urine Amount 0 / 0 0 / 0 Other: Number of Unmeasured Voids 1 1 Weight 135.171 kg 135.851 kg Patient Weight 01/21/23 23:59 Weight 135.851 kg Laboratory Results - last 24 hr 01/20/23 17:54: WBC 19.4 H D, RBC 3.72 L, Hgb 11.4 L, Hct 36.4 L, MCV 97.7, MCH 30.6, MCHC 31.3 L, RDW 16.9, Plt Count 340, MPV 8.0, Neut % (Auto) 62.8, Lymph % (Auto) 29.2, [place] % (Auto) 5.3, Eos % (Auto) 2.3, Baso % (Auto) 0.5, Neut # (Auto) 12.2 H, Lymph # (Auto) 5.6 H, [place] # (Auto) 1.0, Eos # (Auto) 0.4, Baso # (Auto) 0.1, Total Counted 100, Neutrophils % (Manual) 61, Lymphocytes % (Manual) 30, Monocytes % (Manual) 7, Eosinophils % (Manual) 2, Platelet Estimate Normal, Poikilocytosis 1+ 01/20/23 17:54: Sodium 136, Potassium 4.1 D, Chloride 102, Carbon Dioxide 27, Anion Gap 11.1, BUN 5 L, Creatinine 0.90, Estimated Creat Clear 68, Estimated GFR 73, Est GFR ( Amer) 88, Glucose 83, Calcium 8.5 01/20/23 18:50: SARS-CoV-2 (PCR) Not detected, Influenza A Untype (PCR) Not detected, Influenza Type B (PCR) Not detected 01/21/23 06:10: WBC 15.4 H, RBC 3.63 L, Hgb 11.2 L, Hct 36.0 L, MCV 99.1 H, MCH 30.8, MCHC 31.1 L, RDW 17.0, Plt Count 313, MPV 7.9, Neut % (Auto) 69.6, Lymph % (Auto) 21.5, [place] % (Auto) 6.0, Eos % (Auto) 2.6, Baso % (Auto) 0.4, Neut # (Auto) 10.7 H, Lymph # (Auto) 3.3, [place] # (Auto) 0.9, Eos # (Auto) 0.4, Baso # (Auto) 0.1, Total Counted 100, Neutrophils % (Manual) 66, Lymphocytes % (Manual) 26, Monocytes % (Manual) 4, Eosinophils % (Manual) 4 H, Platelet Estimate Normal, Anisocytosis 1+, Macrocytosis 1+, Ovalocytes 1+ 01/21/23 06:10: Sodium 138, Potassium 4.2, Chloride 105, Carbon Dioxide 29, Anion Gap 8.2, BUN 6 L, Creatinine 0.90, Estimated Creat Clear 68, Estimated GFR 73, Est GFR ( Amer) 88, Glucose 84, Calcium 7.9 L, Magnesium 1.9, Total Bilirubin 0.3, AST 49 H D, ALT 37 D, Alkaline Phosphatase 89, Total Protein 6.5, Albumin 3.1 L, Globulin 3.4 H, Albumin/Globulin Ratio 0.9 L 01/21/23 06:10: Serum HCG, Qual Negative I & O for Labs for Last 24 Hours: Intake & Output 01/18/23 01/19/23 01/20/23 01/21/23 23:59 23:59 23:59 23:59 Intake Total 600 / 600 Output Total 0 / 0 0 / 0 Balance 0 / 400 600 / 600 Weight 135.171 kg 135.851 kg Constitutional: Present no acute distress and morbidly obese Head: Present atraumatic and normocephalic Neck: Present normal inspection Respiratory: Present normal respiratory effort; Absent rhonchi, wheezes or crackles Cardiac: Presen
--- NOTE | 2023-01-21 16:31 | PC.NURSE ---
right breast dressing soiled. removed soiled dressing, site was pink with no minimal redness. reinforced with dry 4x4's and covered with medipore perforated tape. pt tolerated well.
--- NOTE | 2023-01-21 16:44 | PC.NURSE ---
20g LFApt had I&D of right breast abscess this morning, she has a 1/4 inch penn[address] drain in place, reinforced with dry 4x4's and medipore perforated tape. since returning to the unit post op, pt experienced pain of 7 out 10. consulted with tracy, ordered morphine. pain was relieved and otherwise no complaints per pt. she has ambulated to the bathroom to void. tolerated lunch and snacks well. ex- at bedside. bed locked and in lowest position, call light with reach.
[2023-01-22] VITALS (8 sets, daily range): BP systolic 102–146; BP diastolic 56–85; PULSE 52–91; RESP 18–20; TEMP 36.1–37.2; O2SAT 98–100; BMI 56.8
--- NOTE | 2023-01-22 06:52 | P.PN_ITS ---
Subjective Narrative: Patient states that she feels a bit better. Having some minimal serosanguineous drainage from the [place]. Labs pending at this time. Exam Data for Last 24 hours Vital signs and Labs for Last 24 Hours: Temp Pulse Resp BP Pulse Ox 97.8 F 77 19 109/60 L 99 01/22/23 04:00 01/22/23 04:00 01/22/23 04:00 01/22/23 04:00 01/22/23 04:00 Laboratory Results - last 24 hr 01/21/23 06:10: Total Counted 100, Neutrophils % (Manual) 66, Lymphocytes % (Manual) 26, Monocytes % (Manual) 4, Eosinophils % (Manual) 4 H, Platelet Adela mate Normal, Anisocytosis 1+, Macrocytosis 1+, Ovalocytes 1+ 01/21/23 06:10: Sodium 138, Potassium 4.2, Chloride 105, Carbon Dioxide 29, Anion Gap 8.2, BUN 6 L, Creatinine 0.90, Estimated Creat Clear 68, Estimated GFR 73, Est GFR ( Amer) 88, Glucose 84, Calcium 7.9 L, Magnesium 1.9, Total Bilirubin 0.3, AST 49 H D, ALT 37 D, Alkaline Phosphatase 89, Total Protein 6.5, Albumin 3.1 L, Globulin 3.4 H, Albumin/Globulin Ratio 0.9 L 01/21/23 06:10: Serum HCG, Qual Negative I & O for Last 24 hours: Intake & Output 01/19/23 01/20/23 01/21/23 01/22/23 11:59 11:59 11:59 11:59 Intake Total 600 / 600 920 / 920 Output Total 0 / 0 0 / 0 Balance 600 / 600 920 / 920 Weight 299 lb 8 oz 301 lb Microbiology Reports for the Last 24 Hours: Microbiology 01/21/23 11:25 Breast,Right - Abscess Gram Stain - Final Routine Chest/Breast/Axilla Exam Comments: [place] in place. Much less fluctuance. Less tenderness. Persistent cellulitis with erythema and some induration. Progress Note: A&P Assessment and plan (1) Mastitis in female: Status: Acute Assessment and plan: Due to evidence of ongoing soft tissue infection with induration and cellulitis recommend continuation of intravenous antibiotics. On cefepime and vancomycin. (2) Obese: Status: Acute (3) Cellulitis of right breast: Status: Acute
[2023-01-22 06:54] LABS: Chloride 105 mmol/L (98-107); Potassium 4.5 mmoL/L (3.5-5.1); Sodium 138 mmol/L (136-145)
[2023-01-22 06:57] LABS: Anion Gap 10.5 mEq/L (5-15); Blood Urea Nitrogen 4 mg/dl (7-17); Carbon Dioxide 27 mmol/L (22.0-30.0); Creatinine Clearance Estimated 88 mL/min (50-200); Estimated Glomerular Filt Rate 98 ml/min (>60); GFR (African American) 118 ML/MIN (>60); Glucose 126 mg/dl (74-100)
[2023-01-22 06:58] LABS: Calcium 8.4 mg/dl (8.4-10.2)
[2023-01-22 07:12] LABS: Basophils % 0.2 % (0.1-2.0); Eosinophils % 0.2 % (0.1-12.0); Hematocrit 35.5 % (37.0-47.0); Hemoglobin 10.8 g/dL (12.2-16.2); Lymphocytes # 2.9 K/mm3 (0.7-4.5); Lymphocytes % 16.9 % (10-50); Mean Corpuscular HGB Conc 30.4 g/dL (31.8-35.4); Mean Corpuscular Hemoglobin 29.7 pg (27.0-31.2); Mean Corpuscular Volume 97.6 fl (81-99); Mean Platelet Volume 8.2 fl (7.4-10.4); Monocytes # 0.9 K/mm3 (0.1-1.0); Monocytes % 5.4 % (1.7-9.3); Neutrophils # 13.5 K/mm3 (1.8-7.8); Neutrophils % 77.3 % (37.0-80.0); Platelet Count 343 K/mm3 (142-424); Red Blood Count 3.64 M/mm3 (4.20-5.40); White Blood Count 17.4 K/mm3 (4.8-10.8)
[2023-01-22 07:14] LABS: MANUAL DIFFERENTIAL MANUAL DIFFERENTIAL (MANUAL DIFF)
--- NOTE | 2023-01-22 07:47 | EXP.PN ---
Subjective *Date: 01/22/23 *Time: 12:58 Interval history: No acute events overnight. Less pain in her right breast. Exam Data for Last 24 hours Vital signs and Labs for Last 24 Hours: Temp Pulse Resp BP Pulse Ox 97.5 F L 65 18 123/63 100 01/22/23 07:38 01/22/23 07:38 01/22/23 07:38 01/22/23 07:38 01/22/23 07:38 Laboratory Results - last 24 hr 01/21/23 06:10: Serum HCG, Qual Negative 01/22/23 05:50: WBC 17.4 H, RBC 3.64 L, Hgb 10.8 L, Hct 35.5 L, MCV 97.6, MCH 29.7, MCHC 30.4 L, RDW 17.0, Plt Count 343, MPV 8.2, Neut % (Auto) 77.3, Lymph % (Auto) 16.9, [place] % (Auto) 5.4, Eos % (Auto) 0.2, Baso % (Auto) 0.2, Neut # (Auto) 13.5 H, Lymph # (Auto) 2.9, [place] # (Auto) 0.9, Eos # (Auto) 0.0, Baso # (Auto) 0.0 I & O for Last 24 hours: Intake & Output 01/19/23 01/20/23 01/21/23 01/22/23 23:59 23:59 23:59 23:59 Intake Total 1520 / 1520 360 / 360 Output Total 0 / 0 0 / 0 0 / 0 Balance 0 / 400 1520 / 1520 360 / 360 Weight 135.171 kg 135.851 kg 136.531 kg Microbiology Reports for the Last 24 Hours: Microbiology 01/21/23 11:25 Breast,Right - Abscess Gram Stain - Final Constitutional Constitutional: no acute distress *Routine HEENT Exam Head: Present normocephalic Eye: Present EOMI and PERRL ENT: Present mucous membranes moist *Routine Neck Exam Neck: Present supple; Absent lymphadenopathy Routine Chest/Breast/Axilla Exam Comments: R breast with dressing that is c/d/i. Nontender with superficial palpation. *Routine Respiratory Exam Respiratory: Present CTA bilaterally *Routine Cardiovascular Exam Cardiovascular: Present RRR *Routine Abdominal Exam Abdominal: Present soft and normoactive bowel sounds; Absent tenderness *Routine Extremities Exam Extremities: Absent cyanosis, clubbing or edema *Routine Skin Exam Skin: Present warm; Absent rash *Routine Neurological Exam Neurological: Present alert and oriented X3 Assessment and Plan *Assessment and plan (1) Mastitis in female: Status: Acute Category: Medical Code(s): N61.0 - Mastitis without abscess (2) Obese: Status: Acute Qualifiers: Obesity classification: adult class 3 (BMI >= 40) Body mass index: BMI 50.0-59.9 Category: Medical Code(s): E66.9 - Obesity, unspecified (3) Cellulitis of right breast: Status: Acute Category: Medical Code(s): N61.0 - Mastitis without abscess Plan Mohini Forde is a 32 year old female with a past medical history of obesity, anxiety and incision and drainage of the left breast 3 years ago. She was admitted on 01/20 with right mastitis that failed outpatient antibiotics. She has been receiving IV vancomycin and cefepime. On 01/21 she had an incision and drainage with washout of right subareolar abscess; approximately 22cc of thick yellowish-green pus was aspirated and there was no apparent complication. #acute R sided mastitis #obesity #cigarette nicotine dependence #anxiety WBC remains elevated, 17.4K this morning, increased from 15.4K. Abscess culture and blood cultures are pending Continue Cefepime and IV Vancomycin Will follow Vancomycin levels and will order a CBC and BMP for tomorrow morning. Regular diet Full code
[2023-01-22 07:54] LABS: Lymphocytes % 23 % (10-50); Monocytes % 3 % (2-9); Neutrophils % 74 % (42-76); Platelet Estimate Normal; RBC Morphology Normal; Total Cells Counted 100
--- NOTE | 2023-01-22 08:12 | P.PNANES_ITS ---
[facility] Anesthesia Record Part II Anesthesia Record Part II Discharge Time: 12:30 Destination: Second Floor PACU nurse assessment reviewed?: Yes Patient Condition:: Good Anesthesia Complications:: None Swallowing reflex intact?: Yes Cyanosis?: No Blood Pressure: 146/85 Pulse Rate: 82 Temperature: 97 F Mental Status: Alert & Oriented Pain level:: 3 Nausea and/or vomitting:: None Intake, IV Amount: 0
--- NOTE | 2023-01-22 09:00 | PC.NURSE ---
COURTESY TECH NOTE; ROUNDED ON PT 0830, PT DENIED NEED FOR DRINK, ASSISTANCE WITH RESTROOM. ASSISTED PT TO REPOSITION IN BED. CALL LIGHT WITHIN REACH, NO FURTHER REQUESTS AT THIS TIME JACKIE MINOR
--- NOTE | 2023-01-22 14:27 | PC.NURSE ---
COURTESY TECH NOTE; ROUNDED ON PT 1400, PT DENIED NEED FOR ASSISTANCE WITH RESTROOM, DRINK, OR NEED TO REPOSITION. CALL LIGHT WITHIN REACH, NO FURTHER REQUESTS AT THIS TIME Feli SCOTT, JACKIE
--- NOTE | 2023-01-22 17:00 | PC.NURSE ---
Dressing changed to right breast...small serosang area noted, abd pad and tape applied.
[2023-01-22 18:01] LABS: Vancomycin,Trough < 5.0 ug/mL (5.0-10.0)
[2023-01-22 22:28] LABS: Vancomycin,Peak 22.3 ug/ml (11-39)
[2023-01-23] VITALS (7 sets, daily range): BP systolic 116–144; BP diastolic 57–86; PULSE 54–84; RESP 16–24; TEMP 36.5–37.1; O2SAT 97–100; BMI 57.6
[2023-01-23 07:09] LABS: Basophils # 0.1 K/mm3 (0-0.2); Basophils % 0.8 % (0.1-2.0); Eosinophils # 0.2 K/mm3 (0.0-0.4); Eosinophils % 1.5 % (0.1-12.0); Hematocrit 34.3 % (37.0-47.0); Hemoglobin 10.4 g/dL (12.2-16.2); Lymphocytes # 5.5 K/mm3 (0.7-4.5); Lymphocytes % 40.6 % (10-50); Mean Corpuscular HGB Conc 30.3 g/dL (31.8-35.4); Mean Corpuscular Hemoglobin 30.2 pg (27.0-31.2); Mean Corpuscular Volume 99.6 fl (81-99); Mean Platelet Volume 8.2 fl (7.4-10.4); Monocytes # 0.8 K/mm3 (0.1-1.0); Neutrophils # 6.9 K/mm3 (1.8-7.8); Neutrophils % 51.1 % (37.0-80.0); Platelet Count 344 K/mm3 (142-424); Red Blood Count 3.44 M/mm3 (4.20-5.40); White Blood Count 13.5 K/mm3 (4.8-10.8)
[2023-01-23 07:25] LABS: Chloride 104 mmol/L (98-107)
[2023-01-23 07:26] LABS: Potassium 4.3 mmoL/L (3.5-5.1); Sodium 140 mmol/L (136-145)
[2023-01-23 07:29] LABS: Anion Gap 9.3 mEq/L (5-15); Blood Urea Nitrogen 5 mg/dl (7-17); Calcium 8.3 mg/dl (8.4-10.2); Carbon Dioxide 31 mmol/L (22.0-30.0); Creatinine Clearance Estimated 77 mL/min (50-200); Estimated Glomerular Filt Rate 84 ml/min (>60); GFR (African American) 101 ML/MIN (>60); Glucose 107 mg/dl (74-100)
--- NOTE | 2023-01-23 08:48 | EXP.PHA.CONS ---
Pharmacy Consult Date: 01/23/23 Time: 08:48 Referring provider: DR. DIALLO Reason for Consult:: VANCOMYCIN DOSE CHANGE Allergies Allergy/AdvReac Type Severity Reaction Status Date / Time No Known Allergies Allergy Verified 11/24/22 09:19 Home Medications Medication Instructions Recorded Confirmed Type bupropion HCl 150 mg 24 hr tablet, 150 mg PO AM Mood 11/24/22 01/21/23 History extended release buspirone 10 mg tablet 10 mg PO PM Anxiety 11/24/22 01/21/23 History cariprazine 3 mg capsule (Vraylar) 3 mg PO DAILY Mood 01/20/23 01/20/23 History cefdinir 300 mg capsule 300 mg PO BID Infection 01/20/23 01/20/23 History sulfamethoxazole 800 1 tab PO Q12H Infection 01/20/23 01/20/23 History mg-trimethoprim 160 mg tablet (Bactrim DS) amitriptyline 10 mg tablet 10 mg PO DAILYP PRN Mood 01/21/23 01/21/23 History atomoxetine 60 mg capsule 60 mg PO DAILY Mood 01/21/23 01/21/23 History fluoxetine 40 mg capsule 40 mg PO AM Mood 01/21/23 01/21/23 History folic acid 400 mcg tablet 400 mcg PO DAILY Supplement 01/21/23 01/21/23 History ketorolac 10 mg tablet 10 mg PO Q8H PRN Pain 01/21/23 01/20/23 History New Prescriptions to Start Prescriptions: Height: 1.55 m Weight: 138.374 kg Laboratory Results:: Laboratory Results - last 24 hr 01/22/23 17:00: Vancomycin Trough < 5.0 L 01/22/23 22:05: Vancomycin Peak 22.3 01/23/23 06:12: WBC 13.5 H, RBC 3.44 L, Hgb 10.4 L, Hct 34.3 L, MCV 99.6 H, MCH 30.2, MCHC 30.3 L, RDW 17.0, Plt Count 344, MPV 8.2, Neut % (Auto) 51.1, Lymph % (Auto) 40.6, [place] % (Auto) 6.0, Eos % (Auto) 1.5, Baso % (Auto) 0.8, Neut # (Auto) 6.9, Lymph # (Auto) 5.5 H, [place] # (Auto) 0.8, Eos # (Auto) 0.2, Baso # (Auto) 0.1 01/23/23 06:12: Sodium 140, Potassium 4.3, Chloride 104, Carbon Dioxide 31 H, Anion Gap 9.3, BUN 5 L, Creatinine 0.80, Estimated Creat Clear 77, Estimated GFR 84, Est GFR ( Amer) 101, Glucose 107 H, Calcium 8.3 L Medical History: Medical History (Updated 01/21/23 @ 18:19 by Michael Diallo MD) Anxiety and depression Left breast abscess Assessment and Plan Assessment and plan all Dx Assessment and Plan for all problems:: BASED ON PATIENT FACTORS AND VANCOMYCIN PEAK/TROUGH OF <5/22.5 RESPECTIVELY, RECOMMEND CHANGING VANCOMYCIN DOSE TO 2,000MG EVERY 8 HOURS WITH A CALCULATED AUC OF 557.4. PHARMACY WILL CONTINUE TO MONITOR. -MAURISIO WATERS, HANKD
--- NOTE | 2023-01-23 08:49 | EXP.PN ---
Subjective *Date: 01/23/23 *Time: 10:55 Interval history: CBC is with 13.5K WBCs, down from 17.4K. Abscess culture is growing many gram positive cocci; id and susceptibilities are pending No acute events overnight. She has less pain in her right breast. She has been eating well. Exam Data for Last 24 hours Vital signs and Labs for Last 24 Hours: Temp Pulse Resp BP Pulse Ox 97.7 F 56 L 21 136/86 100 01/23/23 07:54 01/23/23 07:54 01/23/23 07:54 01/23/23 07:54 01/23/23 07:54 Laboratory Results - last 24 hr 01/22/23 17:00: Vancomycin Trough < 5.0 L 01/22/23 22:05: Vancomycin Peak 22.3 01/23/23 06:12: WBC 13.5 H, RBC 3.44 L, Hgb 10.4 L, Hct 34.3 L, MCV 99.6 H, MCH 30.2, MCHC 30.3 L, RDW 17.0, Plt Count 344, MPV 8.2, Neut % (Auto) 51.1, Lymph % (Auto) 40.6, [place] % (Auto) 6.0, Eos % (Auto) 1.5, Baso % (Auto) 0.8, Neut # (Auto) 6.9, Lymph # (Auto) 5.5 H, [place] # (Auto) 0.8, Eos # (Auto) 0.2, Baso # (Auto) 0.1 01/23/23 06:12: Sodium 140, Potassium 4.3, Chloride 104, Carbon Dioxide 31 H, Anion Gap 9.3, BUN 5 L, Creatinine 0.80, Estimated Creat Clear 77, Estimated GFR 84, Est GFR ( Amer) 101, Glucose 107 H, Calcium 8.3 L I & O for Last 24 hours: Intake & Output 01/20/23 01/21/23 01/22/23 01/23/23 23:59 23:59 23:59 23:59 Intake Total 1520 / 1520 600 / 1660 1300 / 1300 Output Total 0 / 0 0 / 0 0 / 0 0 / 0 Balance 0 / 400 1520 / 1520 600 / 1660 1300 / 1300 Weight 135.171 kg 135.851 kg 136.531 kg 138.374 kg Microbiology Reports for the Last 24 Hours: Microbiology 01/21/23 11:25 Breast,Right - Abscess Gram Stain - Final 01/21/23 11:25 Breast,Right - Abscess Abscess Culture - Preliminary 01/20/23 21:05 Blood Blood Culture - Preliminary NO GROWTH AFTER 48 HOURS 01/20/23 21:05 Blood Blood Culture - Preliminary NO GROWTH AFTER 48 HOURS Constitutional Constitutional: no acute distress *Routine HEENT Exam Head: Present normocephalic Eye: Present EOMI and PERRL ENT: Present mucous membranes moist *Routine Neck Exam Neck: Present supple; Absent lymphadenopathy Routine Chest/Breast/Axilla Exam Comments: R breast with dressing that is c/d/i. *Routine Respiratory Exam Respiratory: Present CTA bilaterally *Routine Cardiovascular Exam Cardiovascular: Present RRR *Routine Abdominal Exam Abdominal: Present soft and normoactive bowel sounds; Absent tenderness *Routine Extremities Exam Extremities: Absent cyanosis, clubbing or edema *Routine Skin Exam Skin: Present warm; Absent rash *Routine Neurological Exam Neurological: Present alert and oriented X3 Assessment and Plan *Assessment and plan (1) Mastitis in female: Status: Acute Category: Medical Code(s): N61.0 - Mastitis without abscess (2) Obese: Status: Acute Qualifiers: Obesity classification: adult class 3 (BMI >= 40) Body mass index: BMI 50.0-59.9 Category: Medical Code(s): E66.9 - Obesity, unspecified (3) Cellulitis of right breast: Status: Acute Category: Medical Code(s): N61.0 - Mastitis without abscess Plan Mohini Forde is a 32 year old female with a past medical history of obesity, anxiety and incision and drainage of the left breast 3 years ago. She was admitted on 01/20 with right mastitis that failed outpatient antibiotics. She has been receiving IV vancomycin and cefepime. On 01/21 she had an incision and drainage with washout of right subareolar abscess; approximately 22cc of thick yellowish-green pus was aspirated and there was no apparent complication. #acute R sided mastitis #obesity #cigarette nicotine dependence #anxiety Abscess culture and blood cultures are pending Continue Cefepime and IV Vancomycin I'll order a CBC and BMP for tomorrow morning. Regular diet Full code Anticipate discharge to home tomorrow once abscess culture id/susceptibilities are available.
--- NOTE | 2023-01-23 08:56 | EXP.PHA.PN ---
Subjective *Date: 01/23/23 *Time: 08:56 Medical Exam Vital signs and Labs for Last 24 Hours: Vital Signs Temp Pulse Resp BP Pulse Ox 01/23/23 07:54 97.7 F 56 L 21 136/86 100 01/23/23 04:00 98.2 F 55 L 20 117/67 99 01/23/23 00:00 97.9 F 61 18 120/81 97 01/22/23 20:00 98.0 F 63 20 121/71 99 01/22/23 15:06 98.9 F 91 H 18 102/56 L 100 01/22/23 11:44 98.9 F 52 L 18 122/78 100 Intake and Output 01/22/23 01/23/23 01/23/23 23:59 07:59 15:59 Intake Total 240 / 1660 1300 / 1300 Output Total 0 / 0 0 / 0 Balance 240 / 1660 1300 / 1300 Intake: Intake, Oral Amount 240 / 1560 1200 / 1200 Infusion Intake 100 / 100 Cefepime HCl 2 gm In 0.9 % 100 / 100 Sodium Chloride 100 ml @ 200 mls/hr IV Q12H [facility] Rx#:[id number] Output: Output, Urine Amount 0 / 0 0 / 0 Other: Number of Unmeasured Voids 0 0 Weight 138.374 kg 138.374 kg Patient Weight 01/23/23 23:59 Weight 138.374 kg Laboratory Results - last 24 hr 01/22/23 17:00: Vancomycin Trough < 5.0 L 01/22/23 22:05: Vancomycin Peak 22.3 01/23/23 06:12: WBC 13.5 H, RBC 3.44 L, Hgb 10.4 L, Hct 34.3 L, MCV 99.6 H, MCH 30.2, MCHC 30.3 L, RDW 17.0, Plt Count 344, MPV 8.2, Neut % (Auto) 51.1, Lymph % (Auto) 40.6, [place] % (Auto) 6.0, Eos % (Auto) 1.5, Baso % (Auto) 0.8, Neut # (Auto) 6.9, Lymph # (Auto) 5.5 H, [place] # (Auto) 0.8, Eos # (Auto) 0.2, Baso # (Auto) 0.1 01/23/23 06:12: Sodium 140, Potassium 4.3, Chloride 104, Carbon Dioxide 31 H, Anion Gap 9.3, BUN 5 L, Creatinine 0.80, Estimated Creat Clear 77, Estimated GFR 84, Est GFR ( Amer) 101, Glucose 107 H, Calcium 8.3 L I & O for Labs for Last 24 Hours: Intake & Output 01/20/23 01/21/23 01/22/23 01/23/23 23:59 23:59 23:59 23:59 Intake Total 1520 / 1520 600 / 1660 1300 / 1300 Output Total 0 / 0 0 / 0 0 / 0 0 / 0 Balance 0 / 400 1520 / 1520 600 / 1660 1300 / 1300 Weight 135.171 kg 135.851 kg 136.531 kg 138.374 kg Microbiology Reports for the Last 24 Hours: Microbiology 01/21/23 11:25 Breast,Right - Abscess Gram Stain - Final 01/21/23 11:25 Breast,Right - Abscess Abscess Culture - Preliminary 01/20/23 21:05 Blood Blood Culture - Preliminary NO GROWTH AFTER 48 HOURS 01/20/23 21:05 Blood Blood Culture - Preliminary NO GROWTH AFTER 48 HOURS The patient's infection will respond to the chosen ABx?: Yes Is the patient receiving the right drug, dose, and route?: Yes Could a more targeted ABx be ordered?: No
--- NOTE | 2023-01-23 11:18 | EXP.SURG.PN ---
Subjective Patient reports: no new complaints Narrative: Still has some breast tenderness that is stable from yesterday. Afebrile. Exam Data for Last 24 hours Vital signs and Labs for Last 24 Hours: Temp Pulse Resp BP Pulse Ox 98.3 F 84 16 124/74 99 01/23/23 11:13 01/23/23 11:13 01/23/23 11:13 01/23/23 11:13 01/23/23 11:13 Laboratory Results - last 24 hr 01/22/23 17:00: Vancomycin Trough < 5.0 L 01/22/23 22:05: Vancomycin Peak 22.3 01/23/23 06:12: WBC 13.5 H, RBC 3.44 L, Hgb 10.4 L, Hct 34.3 L, MCV 99.6 H, MCH 30.2, MCHC 30.3 L, RDW 17.0, Plt Count 344, MPV 8.2, Neut % (Auto) 51.1, Lymph % (Auto) 40.6, [place] % (Auto) 6.0, Eos % (Auto) 1.5, Baso % (Auto) 0.8, Neut # (Auto) 6.9, Lymph # (Auto) 5.5 H, [place] # (Auto) 0.8, Eos # (Auto) 0.2, Baso # (Auto) 0.1 01/23/23 06:12: Sodium 140, Potassium 4.3, Chloride 104, Carbon Dioxide 31 H, Anion Gap 9.3, BUN 5 L, Creatinine 0.80, Estimated Creat Clear 77, Estimated GFR 84, Est GFR ( Amer) 101, Glucose 107 H, Calcium 8.3 L I & O for Last 24 hours: Intake & Output 01/20/23 01/21/23 01/22/23 01/23/23 23:59 23:59 23:59 23:59 Intake Total 1520 / 1520 600 / 1660 1300 / 1300 Output Total 0 / 0 0 / 0 0 / 0 0 / 0 Balance 0 / 400 1520 / 1520 600 / 1660 1300 / 1300 Weight 298 lb 299 lb 8 oz 301 lb 305 lb 1 oz Microbiology Reports for the Last 24 Hours: Microbiology 01/21/23 11:25 Breast,Right - Abscess Gram Stain - Final 01/21/23 11:25 Breast,Right - Abscess Abscess Culture - Preliminary 01/20/23 21:05 Blood Blood Culture - Preliminary NO GROWTH AFTER 48 HOURS 01/20/23 21:05 Blood Blood Culture - Preliminary NO GROWTH AFTER 48 HOURS Constitutional Constitutional: no acute distress Routine Chest/Breast/Axilla Exam Comments: Induration and nipple retraction at right breast. [place] drain is in place with a mild amount of purulent drainage on dressing. Skin is slightly discolored, but there is no blanching erythema Progress Note: A&P Assessment and plan (1) Mastitis in female: Status: Acute (2) Obese: Status: Acute (3) Cellulitis of right breast: Problem details: Status post incision and drainage. She is afebrile and her leukocytosis continues to improve. Continue [place] drain. Cultures were reviewed, GPC's only, pending identification and sensitivities. Continue current antibiotics. Awaiting culture and sensitivity before discharge home on oral antibiotics. Will reassess the induration tomorrow. Hopefully this continues to improve with antibiotics and surgical drainage. Status: Acute
--- NOTE | 2023-01-23 18:17 | PC.NURSE ---
pt c/o pain at frequent intervals, treated per oct. dsg change to rt breast, small amount of serous drainage. pt have no questions or concerns at this time. pt has ealked multiple times in hallway and has had family at bs t/o day.
[2023-01-24 04:00] VITALS: BP 132/75; PULSE 57; RESP 18; TEMP 36.9; O2SAT 99; BMI 56.9
[2023-01-24 07:17] VITALS: BP 111/68; PULSE 68; RESP 19; TEMP 36.6; O2SAT 100
--- NOTE | 2023-01-24 07:26 | PC.NURSE ---
courtesy tech round: pt is lying in bed with call light within reach watching tv
--- NOTE | 2023-01-24 07:43 | EXP.SURG.PN ---
Subjective Narrative: No acute events. Has the same amount of pain at I&D site. Exam Data for Last 24 hours Vital signs and Labs for Last 24 Hours: Temp Pulse Resp BP Pulse Ox 97.8 F 68 19 111/68 100 01/24/23 07:17 01/24/23 07:17 01/24/23 07:17 01/24/23 07:17 01/24/23 07:17 I & O for Last 24 hours: Intake & Output 01/21/23 01/22/23 01/23/23 01/24/23 23:59 23:59 23:59 23:59 Intake Total 1520 / 1520 600 / 1660 2260 / 2740 960 / 960 Output Total 0 / 0 0 / 0 0 / 0 0 / 0 Balance 1520 / 1520 600 / 1660 2260 / 2740 960 / 960 Weight 299 lb 8 oz 301 lb 305 lb 1 oz 301 lb 8 oz Microbiology Reports for the Last 24 Hours: Microbiology 01/21/23 11:25 Breast,Right - Abscess Gram Stain - Final 01/21/23 11:25 Breast,Right - Abscess Abscess Culture - Preliminary Gram Positive Cocci Gram Positive Cocci#2 Constitutional Constitutional: no acute distress *Routine HEENT Exam Head: Present normocephalic and atraumatic Eye: Present EOMI and PERRL Routine Chest/Breast/Axilla Exam Comments: right breast nipple retraction/induration are stable from yesterday. Some darkened skin but no blanching erythema. [place] in place with scant purulent drainage. Wound redressed with dry-gauze and TP tape. Progress Note: A&P Assessment and plan (1) Mastitis in female: Status: Acute (2) Obese: Status: Acute (3) Cellulitis of right breast: Problem details: Status post incision and drainage. She is afebrile and her leukocytosis has resolved. Continue [place] drain. Cultures were reviewed, GPC's, pending identification and sensitivities. Continue current antibiotics. Awaiting culture and sensitivity before discharge home on oral antibiotics. When discharged, f/u in the office with Dr. Álvarez this week to remove melania. Status: Acute
[2023-01-24 07:47] LABS: Chloride 101 mmol/L (98-107); Potassium 3.8 mmoL/L (3.5-5.1); Sodium 139 mmol/L (136-145)
[2023-01-24 07:50] LABS: Anion Gap 10.8 mEq/L (5-15); Blood Urea Nitrogen 5 mg/dl (7-17); Carbon Dioxide 31 mmol/L (22.0-30.0); Creatinine Clearance Estimated 77 mL/min (50-200); Estimated Glomerular Filt Rate 84 ml/min (>60); GFR (African American) 101 ML/MIN (>60)
[2023-01-24 07:51] LABS: Calcium 8.1 mg/dl (8.4-10.2); Glucose 103 mg/dl (74-100)
--- NOTE | 2023-01-24 07:53 | EXP.PN ---
Subjective *Date: 01/24/23 *Time: 09:18 Interval history: No acute events overnight. Eating well. No nausea or vomiting. No shortness of breath. Exam Data for Last 24 hours Vital signs and Labs for Last 24 Hours: Temp Pulse Resp BP Pulse Ox 97.8 F 68 19 111/68 100 01/24/23 07:17 01/24/23 07:17 01/24/23 07:17 01/24/23 07:17 01/24/23 07:17 I & O for Last 24 hours: Intake & Output 01/21/23 01/22/23 01/23/23 01/24/23 23:59 23:59 23:59 23:59 Intake Total 1520 / 1520 600 / 1660 2260 / 2740 960 / 960 Output Total 0 / 0 0 / 0 0 / 0 0 / 0 Balance 1520 / 1520 600 / 1660 2260 / 2740 960 / 960 Weight 135.851 kg 136.531 kg 138.374 kg 136.758 kg Microbiology Reports for the Last 24 Hours: Microbiology 01/21/23 11:25 Breast,Right - Abscess Gram Stain - Final 01/21/23 11:25 Breast,Right - Abscess Abscess Culture - Preliminary Gram Positive Cocci Gram Positive Cocci#2 Constitutional Constitutional: no acute distress *Routine HEENT Exam Head: Present normocephalic Eye: Present EOMI and PERRL ENT: Present mucous membranes moist *Routine Neck Exam Neck: Present supple; Absent lymphadenopathy *Routine Respiratory Exam Respiratory: Present CTA bilaterally *Routine Cardiovascular Exam Cardiovascular: Present RRR *Routine Abdominal Exam Abdominal: Present soft and normoactive bowel sounds; Absent tenderness *Routine Extremities Exam Extremities: Absent cyanosis, clubbing or edema *Routine Skin Exam Skin: Present warm; Absent rash *Routine Neurological Exam Neurological: Present alert and oriented X3 Assessment and Plan *Assessment and plan (1) Mastitis in female: Status: Acute Category: Medical Code(s): N61.0 - Mastitis without abscess (2) Obese: Status: Acute Qualifiers: Body mass index: BMI 50.0-59.9 Obesity classification: adult class 3 (BMI >= 40) Category: Medical Code(s): E66.9 - Obesity, unspecified (3) Cellulitis of right breast: Problem Comment: Status post incision and drainage. She is afebrile and her leukocytosis has resolved. Continue Melania drain. Cultures were reviewed, GPC's, pending identification and sensitivities. Continue current antibiotics. Awaiting culture and sensitivity before discharge home on oral antibiotics. When discharged, f/u in the office with Dr. Álvarez this week to remove melania. Status: Acute Category: Medical Code(s): N61.0 - Mastitis without abscess Plan Mohini Forde is a 32 year old female with a past medical history of obesity, anxiety and incision and drainage of the left breast 3 years ago. She was admitted on 01/20 with right mastitis that failed outpatient antibiotics. She has been receiving IV vancomycin and cefepime. On 01/21 she had an incision and drainage with washout of right subareolar abscess; approximately 22cc of thick yellowish-green pus was aspirated and there was no apparent complication. #acute R sided mastitis #obesity #cigarette nicotine dependence #anxiety Abscess culture is with moderate growth of GPCs; final ID/susceptibilities should be available in the next 1-2 days. Blood cultures are without growth at 48 hours. Continue Cefepime and IV Vancomycin (pharmacy to dose) I'll order a CBC and BMP for tomorrow morning. Regular diet Full code Discharge to home once abscess culture id/susceptibilities are available.
[2023-01-24 08:02] LABS: Basophils # 0.1 K/mm3 (0-0.2); Basophils % 0.8 % (0.1-2.0); Eosinophils # 0.4 K/mm3 (0.0-0.4); Eosinophils % 3.2 % (0.1-12.0); Hematocrit 37.2 % (37.0-47.0); Hemoglobin 11.3 g/dL (12.2-16.2); Lymphocytes # 4.4 K/mm3 (0.7-4.5); Lymphocytes % 38.4 % (10-50); Mean Corpuscular HGB Conc 30.3 g/dL (31.8-35.4); Mean Corpuscular Hemoglobin 29.8 pg (27.0-31.2); Mean Corpuscular Volume 98.2 fl (81-99); Mean Platelet Volume 8.3 fl (7.4-10.4); Monocytes # 0.6 K/mm3 (0.1-1.0); Monocytes % 5.4 % (1.7-9.3); Neutrophils # 5.9 K/mm3 (1.8-7.8); Neutrophils % 52.1 % (37.0-80.0); Platelet Count 381 K/mm3 (142-424); Red Blood Count 3.79 M/mm3 (4.20-5.40); Red Cell Distribution Width 16.7 % (11.5-17.5); White Blood Count 11.3 K/mm3 (4.8-10.8)
[2023-01-24 10:27] LABS: Vancomycin,Trough 15.7 ug/mL (5.0-10.0)
--- NOTE | 2023-01-24 10:53 | EXP.PHA.CONS ---
Pharmacy Consult Date: 01/24/23 Time: 10:53 Referring provider: DR. HASSAN Reason for Consult:: VANCOMYCIN DOSING Allergies Allergy/AdvReac Type Severity Reaction Status Date / Time No Known Allergies Allergy Verified 11/24/22 09:19 Home Medications Medication Instructions Recorded Confirmed Type bupropion HCl 150 mg 24 hr tablet, 150 mg PO AM Mood 11/24/22 01/21/23 History extended release buspirone 10 mg tablet 10 mg PO PM Anxiety 11/24/22 01/21/23 History cariprazine 3 mg capsule (Vraylar) 3 mg PO DAILY Mood 01/20/23 01/20/23 History cefdinir 300 mg capsule 300 mg PO BID Infection 01/20/23 01/20/23 History sulfamethoxazole 800 1 tab PO Q12H Infection 01/20/23 01/20/23 History mg-trimethoprim 160 mg tablet (Bactrim DS) amitriptyline 10 mg tablet 10 mg PO DAILYP PRN Mood 01/21/23 01/21/23 History atomoxetine 60 mg capsule 60 mg PO DAILY Mood 01/21/23 01/21/23 History fluoxetine 40 mg capsule 40 mg PO AM Mood 01/21/23 01/21/23 History folic acid 400 mcg tablet 400 mcg PO DAILY Supplement 01/21/23 01/21/23 History ketorolac 10 mg tablet 10 mg PO Q8H PRN Pain 01/21/23 01/20/23 History New Prescriptions to Start Prescriptions: Height: 1.55 m Weight: 136.758 kg Laboratory Results:: Laboratory Results - last 24 hr 01/24/23 07:22: WBC 11.3 H, RBC 3.79 L, Hgb 11.3 L, Hct 37.2, MCV 98.2, MCH 29.8, MCHC 30.3 L, RDW 16.7, Plt Count 381, MPV 8.3, Neut % (Auto) 52.1, Lymph % (Auto) 38.4, [place] % (Auto) 5.4, Eos % (Auto) 3.2, Baso % (Auto) 0.8, Neut # (Auto) 5.9, Lymph # (Auto) 4.4, [place] # (Auto) 0.6, Eos # (Auto) 0.4, Baso # (Auto) 0.1 01/24/23 07:22: Sodium 139, Potassium 3.8, Chloride 101, Carbon Dioxide 31 H, Anion Gap 10.8, BUN 5 L, Creatinine 0.80, Estimated Creat Clear 77, Estimated GFR 84, Est GFR ( Amer) 101, Glucose 103 H, Calcium 8.1 L 01/24/23 09:40: Vancomycin Trough 15.7 H Medical History: Medical History (Updated 01/24/23 @ 07:43 by Krystyna Vásquez MD) Anxiety and depression Left breast abscess Assessment and Plan Assessment and plan all Dx Assessment and Plan for all problems:: BASED ON PATIENT FACTORS AND VANCOMYCIN TROUGH LEVEL OF 15.7, RECOMMEND CONTINUING CURRENT DOSE OF VANCOMYCIN AT 2,000MG EVERY 8 HOURS. PHARMACY WILL CONTINUE TO MONITOR. -MAURISIO WATERS, HANKD
[2023-01-24 11:11] VITALS: BP 113/59; PULSE 63; RESP 19; TEMP 37.1; O2SAT 99
[2023-01-24 11:20] LABS: Strep Scrn Group A (Rapid) Negative (Negative)
[2023-01-24 15:16] VITALS: BP 138/75; PULSE 78; RESP 18; TEMP 36.7; O2SAT 98
--- NOTE | 2023-01-24 18:41 | PC.NURSE ---
pt asked for pain meds at frequent intervals stating shes having streaks of pain on the backside of nipple and a burning sensation at times. dsg changed with small amount of serosanguineous drainage with some pus on old dsg. no redness/swelling signs of infection around melania drain.
[2023-01-24 19:52] VITALS: BP 122/63; PULSE 75; RESP 22; TEMP 37.1; O2SAT 95
[2023-01-25 04:00] VITALS: BP 119/74; PULSE 64; RESP 22; TEMP 36.8; O2SAT 95; BMI 57.6
[2023-01-25 06:43] LABS: Chloride 103 mmol/L (98-107)
[2023-01-25 06:44] LABS: Potassium 4.5 mmoL/L (3.5-5.1)
[2023-01-25 06:46] LABS: Blood Urea Nitrogen 4 mg/dl (7-17); Carbon Dioxide 28 mmol/L (22.0-30.0); Creatinine Clearance Estimated 88 mL/min (50-200); Estimated Glomerular Filt Rate 98 ml/min (>60); GFR (African American) 118 ML/MIN (>60)
[2023-01-25 06:47] LABS: Calcium 8.4 mg/dl (8.4-10.2); Glucose 76 mg/dl (74-100)
[2023-01-25 07:01] LABS: Anion Gap 11.5 mEq/L (5-15); Sodium 138 mmol/L (136-145)
[2023-01-25 07:07] LABS: Basophils # 0.1 K/mm3 (0-0.2); Basophils % 0.7 % (0.1-2.0); Eosinophils # 0.7 K/mm3 (0.0-0.4); Eosinophils % 4.9 % (0.1-12.0); Hematocrit 36.9 % (37.0-47.0); Hemoglobin 11.7 g/dL (12.2-16.2); Lymphocytes # 4.6 K/mm3 (0.7-4.5); Lymphocytes % 34.9 % (10-50); Mean Corpuscular HGB Conc 31.7 g/dL (31.8-35.4); Mean Corpuscular Hemoglobin 30.5 pg (27.0-31.2); Mean Corpuscular Volume 96.3 fl (81-99); Mean Platelet Volume 8.4 fl (7.4-10.4); Monocytes # 0.6 K/mm3 (0.1-1.0); Monocytes % 4.8 % (1.7-9.3); Neutrophils # 7.2 K/mm3 (1.8-7.8); Neutrophils % 54.7 % (37.0-80.0); Platelet Count 372 K/mm3 (142-424); Red Blood Count 3.84 M/mm3 (4.20-5.40); Red Cell Distribution Width 16.9 % (11.5-17.5); White Blood Count 13.2 K/mm3 (4.8-10.8)
[2023-01-25 08:00] VITALS: BP 103/63; PULSE 78; RESP 20; TEMP 37.1; O2SAT 97
--- NOTE | 2023-01-25 11:34 | EXP.DC.SUM ---
General Admission date:: 01/20/23 Discharge date: 01/25/23 HPI HPI HPI: Patient is a 32-year-old female from [place] whom I had seen in the past and October 2019 for left breast abscess. At that time she underwent attempted aspiration under anesthesia with limited incision and drainage. She had previous history of bilateral nipple piercings. She had remove these after her last infection. Recently she had them pierced once again. She developed right breast redness and pain and removed them. She presented to the emergency department on 01/18/2023 with complaints of right breast redness and pain. This had begun approximately 3 days prior to presentation she attempted to take some leftover clindamycin. At that time her white blood cell count was 14,800. She was diagnosed with mastitis and given dose of vancomycin and prescription for cefdinir and Bactrim. She presented back to the emergency department yesterday on 01/20/2023 with worsening right breast pain. White blood cell count was 19,400. She was admitted to the hospitalist service and surgical consultation was ordered. Patient is a smoker. Not breast-feeding. Hospital Course Hospital Course Hospital Course: Mohini Forde is a 32 year old female with a past medical history of obesity, anxiety and incision and drainage of the left breast 3 years ago. She was admitted on 01/20 with right mastitis that failed outpatient antibiotics. Was started on IV antibiotics including vancomycin and cefepime. On 01/21 she had an I&D with washout of right subareolar abscess. Approximately 22 cc of thick yellow pus was aspirated. Erythema has improved. Swelling resolving. Drain still in place. Stable for discharge home to complete oral antibiotic course. Will transition back to Bactrim DS twice daily for total of 10 days of antibiotic therapy from I&D. #acute R sided mastitis #obesity #cigarette nicotine dependence #anxiety I&D performed by surgery, consulted during her admission. Appreciate their assistance in care. Still awaiting final ID and susceptibilities from culture however growing 2 different species of gram-positive cocci. Will transition back to Bactrim for broad coverage. Suspect poor response previously was not due to failure of antibiotic but due to inadequate source control. Now that the wound has been drained, erythema drastically improving. White cell count normalizing. Stable for transition oral antibiotics. Patient unfortunately is also developed a yeast infection, will treat with 1 more dose of Diflucan which she is instructed to take after completing oral antibiotics. Stable for discharge home with close follow-up with surgery. Continue home medications for mood disorder. Exam Data for Last 24 hours Vital signs and Labs for Last 24 Hours: Temp Pulse Resp BP Pulse Ox 98.8 F 78 20 103/63 L 97 01/25/23 08:00 01/25/23 08:00 01/25/23 08:00 01/25/23 08:00 01/25/23 08:00 Laboratory Results - last 24 hr 01/24/23 15:15: Vancomycin Peak 25.0 01/25/23 05:50: Sodium 138, Potassium 4.5, Chloride 103, Carbon Dioxide 28, Anion Gap 11.5, BUN 4 L, Creatinine 0.70, Estimated Creat Clear 88, Estimated GFR 98, Est GFR ( Amer) 118, Glucose 76 D, Calcium 8.4 01/25/23 06:58: WBC 13.2 H, RBC 3.84 L, Hgb 11.7 L, Hct 36.9 L, MCV 96.3, MCH 30.5, MCHC 31.7 L, RDW 16.9, Plt Count 372, MPV 8.4, Neut % (Auto) 54.7, Lymph % (Auto) 34.9, [place] % (Auto) 4.8, Eos % (Auto) 4.9, Baso % (Auto) 0.7, Neut # (Auto) 7.2, Lymph # (Auto) 4.6 H, [place] # (Auto) 0.6, Eos # (Auto) 0.7 H, Baso # (Auto) 0.1 I & O for Last 24 hours: Intake & Output 01/22/23 01/23/23 01/24/23 01/25/23 23:59 23:59 23:59 23:59 Intake Total 600 / 1660 2260 / 2740 2170 / 2170 480 / 480 Output Total 0 / 0 0 / 0 0 / 0 0 / 0 Balance 600 / 1660 2260 / 2740 2170 / 2170 480 / 480 Weight 136.531 kg 138.374 kg 136.758 kg 138.391 kg Microbiology Reports for the Last 24 Hours: Microbiology 01/21/23 11:
--- NOTE | 2023-01-25 12:15 | PC.NURSE ---
call bharathi, spoke with him via phone to inform him pt was having continued chest pain and nausea. he explained he thought the pt was at lab tester. i informed him the pt was on the floor from the ED. chelsey stated he would talk to cardiology. Gave pt morphine for 7 out of 10 pain.
--- NOTE | 2023-01-25 12:50 | PC.NURSE ---
pt states morphine has not relieved the chest pain. 7 out of 10
--- NOTE | 2023-01-25 13:02 | HMH.PHAINT1 ---
Pharmacy Intervention Comments: Discharge medication counseling completed. Patient was starting the following new meds: -hydrocodone/APAP: every 8 hours as needed for pain. Told patient that this med could potentially cause nausea and/or make her drowsy -Diflucan 150 m tab for 1 dose Patient was told to stop taking cefdinir caps, but to continue taking the Bactrim DS tab Patient verbalized understanding and had no further questions.
--- NOTE | 2023-01-27 15:25 | CARE MANAGER ---
Attempted to call patient multiple times and left a VM on 01/26. Unable to reach patient via phone.
== END 2023-01-25 13:55 | disposition home or self-care (01) | DRG 600 ==
LOC: ER 18:40 → 2ND 01-21 00:42
PROVIDERS: Internal Medicine; Nurse Practitioner Critical Care Medicine; Surgery; Admitting Provider Internal Medicine Adolescent Medicine; Emergency Provider Emergency Medicine; PCP Nurse Practitioner Family; Visit Provider Internal Medicine Adolescent Medicine
PROC: 0H9T00Z Drainage of Right Breast with Drainage Device, Open Approach (ICD-10-PCS; principal; 2023-01-21 11:00)
DX: N61.1 Abscess of the breast and nipple; Z68.43 Body mass index [BMI] 50.0-59.9, adult; F17.210 Nicotine dependence, cigarettes, uncomplicated; Z79.899 Other long term (current) drug therapy; B95.4 Other streptococcus as the cause of diseases classified elsewhere; F41.9 Anxiety disorder, unspecified; E66.01 Morbid (severe) obesity due to excess calories
CPT/HCPCS: 19020; 36415; 76641; 80048; 80053; 80202; 83735; 84703; 85007; 85025; 87040; 87070; 87077; 87081; 87116; 87186; 87205; 87206; 87430; 87636; 99285; C9803; G0378; J2405; J3370; U0003; U0005

== ENCOUNTER 2023-01-26 20:43 | Emergency (ER) | payer OTHER, SELFPAY ==
[2023-01-26 20:44] VITALS: BP 131/84; PULSE 79; RESP 16; TEMP 36.7; O2SAT 99; BMI 56.2
--- NOTE | 2023-01-26 21:06 | HMH.EDGENADL ---
Discharge Plan Disposition Patient Disposition: Home, Self-Care Chief Complaint: PAIN Prescriptions Prescriptions: No Action buspirone 10 mg tablet 10 mg PO PM bupropion HCl 150 mg tablet extended release 24 hr 150 mg PO AM Vraylar 3 mg capsule 3 mg PO DAILY Label Comments: TAKE 1 CAPSULE BY MOUTH EVERY DAY fluoxetine 40 mg capsule 40 mg PO AM Label Comments: TAKE 1 CAPSULE BY MOUTH EVERY MORNING folic acid 400 mcg tablet 400 mcg PO DAILY Label Comments: TAKE 1 TABLET BY MOUTH EVERY DAY amitriptyline 10 mg tablet 10 mg PO DAILYP PRN (Reason: Mood) atomoxetine 60 mg capsule 60 mg PO DAILY Label Comments: TAKE 1 CAPSULE BY MOUTH EVERY DAY FOR 90 DAYS ketorolac 10 mg tablet 10 mg PO Q8H PRN (Reason: Pain) sulfamethoxazole-trimethoprim [Bactrim DS] 800-160 mg tablet 1 tab PO Q12H 5 Days Qty: 0 0RF hydrocodone-acetaminophen 5-325 mg Tablet 1 tab PO Q8HP PRN (Reason: MODERATE TO SEVERE PAIN) 3 Days Qty: 9 0RF fluconazole [Diflucan] 150 mg tablet 150 mg PO DAILY 1 Days Qty: 1 0RF Referrals Follow up/Referrals: Katina Scott PA [Primary Care Provider] - See instructions Clinical Impressions Clinical Impression: Superficial phlebitis Instructions Patient Instructions: Superficial Thrombophlebitis Discharge ED Provider: Alanna WalshED)Tyrone General Adult HPI General Chief complaint: PAIN Stated complaint: right arm pain Time Seen by Provider: 01/26/23 21:06 Mode of Arrival: Ambulatory Source of Information: Patient Limitations: No Limitations Description of Symptoms (Recalled from ER Triage Doc. by RN): pt reports that shehas redness in her arm where her IV had been taken out at discharge from the hospital pt requests the dr to look at it. pt is recieving antibiotics. History of Present Illness HPI narrative: pt with reddness to lt arm which was in area of iv and now has reddness and tenderness and is on abx and has elmer Onset (ago): hour(s) Location: right and upper extremity Severity: moderate Consistency: constant Related Data Home Medications Medication Instructions Recorded Confirmed bupropion HCl 150 mg 24 hr tablet, 150 mg PO AM Mood 11/24/22 01/21/23 extended release buspirone 10 mg tablet 10 mg PO PM Anxiety 11/24/22 01/21/23 cariprazine 3 mg capsule (Vraylar) 3 mg PO DAILY Mood 01/20/23 01/20/23 amitriptyline 10 mg tablet 10 mg PO DAILYP PRN Mood 01/21/23 01/21/23 atomoxetine 60 mg capsule 60 mg PO DAILY Mood 01/21/23 01/21/23 fluoxetine 40 mg capsule 40 mg PO AM Mood 01/21/23 01/21/23 folic acid 400 mcg tablet 400 mcg PO DAILY Supplement 01/21/23 01/21/23 ketorolac 10 mg tablet 10 mg PO Q8H PRN Pain 01/21/23 01/20/23 Previous Rx's Medication Instructions Recorded fluconazole 150 mg tablet 150 mg PO DAILY 1 day #1 tab 01/25/23 (Diflucan) hydrocodone 5 mg-acetaminophen 325 1 tab PO Q8HP PRN MODERATE TO 01/25/23 mg tablet SEVERE PAIN 3 days #9 tabs sulfamethoxazole 800 1 tab PO Q12H Infection 5 days #0 01/25/23 mg-trimethoprim 160 mg tablet tabs (Bactrim DS) Allergies Allergy/AdvReac Type Severity Reaction Status Date / Time No Known Allergies Allergy Verified 11/24/22 09:19 [facility] Disclaimer: The information contained in this section may have been updated after the patient was seen, as this information can be updated by other users. Medical History (Updated 01/26/23 @ 21:17 by Tyrone Mondragon (MD KENAN) Anxiety and depression Left breast abscess Surgical History (Updated 01/20/23 @ 20:44 by ALLYSON Wu) History of incision and drainage Social History (Updated 01/20/23 @ 22:12 by Jeannette Blanchard RN) Smoking Status: Current every day smoker tobacco type: cigarettes packs per day: 1 alcohol intake: current substance use type: denies use current occupational status: employed Travel in the last 8 weeks: None household members: sp
[2023-01-26 21:18] VITALS: BP 131/84; PULSE 79; RESP 16; TEMP 36.7; O2SAT 99
--- NOTE | 2023-01-26 21:18 | PC.NURSE ---
pt left ER without her lovenox injection or doppler order. notified manager warehouse
--- NOTE | 2023-01-26 21:29 | PC.NURSE ---
I was called from ER staff stating this pt had left the ER to come to the floor and talk to her nurse from the night before. I met the pt at the church warden window and asked if there was anything I could help her with. She said she was seen in the ER for her right arm swelling, redness, and tenderness and that the ER doctor and nurse were quacks and that she wanted a second opinion . I informed her that the RN's that took care of her were not here but I'd take a look at her arm. RUE was assessed. Pt did have erythema to AC. Soft and warm to palpation. Mildly tender. Pt has a follow up scheduled . Come to find out pt had an outpatient doppler order and lovenox shot but left the ED without them
== END 2023-01-26 21:20 | disposition home or self-care (01) ==
PROVIDERS: Emergency Provider Emergency Medicine; PCP Nurse Practitioner Family
DX: I80.8 Phlebitis and thrombophlebitis of other sites (principal); F41.9 Anxiety disorder, unspecified; F32.A Depression, unspecified; F17.210 Nicotine dependence, cigarettes, uncomplicated
CPT/HCPCS: 99284

== ENCOUNTER → 2023-01-28 09:33 | Outpatient (CLI) | payer OTHER, SELFPAY ==
--- NOTE | 2023-01-28 09:39 | CA_ITS ---
FINAL REPORT TECHNIQUE: Graded compression, spectral analysis and ultrasound images of the venous system of the right upper extremity were obtained. CLINICAL HISTORY: right upper arm pain at the IV site. s/p rt breast abscess with drainage. morbid obesity FINDINGS: There is venous thrombosis in the right cephalic vein. The jugular vein, subclavian vein, axillary vein, brachial vein, and basilic venous system are fully compressible and demonstrate no evidence of thrombosis. IMPRESSION: Venous thrombosis in the right cephalic vein. Reviewed, Interpreted and Dictated by Beni Andino III, MD Transcribed by Asia Barnes Authenticated and [facility]
== END ==
PROVIDERS: PCP Nurse Practitioner Family; Visit Provider Surgery
DX: M79.601 Pain in right arm (principal)
CPT/HCPCS: 93971

== ENCOUNTER 2023-01-28 10:34 | Emergency (ER) | payer OTHER, SELFPAY ==
[2023-01-28 10:35] VITALS: BP 151/48; PULSE 77; RESP 20; TEMP 36.9; O2SAT 97; BMI 56.2
--- NOTE | 2023-01-28 11:08 | HMH.EDGENADL ---
Discharge Plan Disposition Patient Disposition: Home, Self-Care Chief Complaint: PAIN Prescriptions Prescriptions: No Action cephalexin 500 mg capsule 500 mg PO BID 10 Days Qty: 20 0RF buspirone 10 mg tablet 10 mg PO PM bupropion HCl 150 mg tablet extended release 24 hr 150 mg PO AM Vraylar 3 mg capsule 3 mg PO DAILY Label Comments: TAKE 1 CAPSULE BY MOUTH EVERY DAY fluoxetine 40 mg capsule 40 mg PO AM Label Comments: TAKE 1 CAPSULE BY MOUTH EVERY MORNING folic acid 400 mcg tablet 400 mcg PO DAILY Label Comments: TAKE 1 TABLET BY MOUTH EVERY DAY amitriptyline 10 mg tablet 10 mg PO DAILYP PRN (Reason: Mood) atomoxetine 60 mg capsule 60 mg PO DAILY Label Comments: TAKE 1 CAPSULE BY MOUTH EVERY DAY FOR 90 DAYS ketorolac 10 mg tablet 10 mg PO Q8H PRN (Reason: Pain) sulfamethoxazole-trimethoprim [Bactrim DS] 800-160 mg tablet 1 tab PO Q12H 5 Days Qty: 0 0RF Referrals Follow up/Referrals: Katina Scott PA [Primary Care Provider] - See instructions Clinical Impressions Clinical Impression: Acute thrombosis of superficial veins of arm Discharge ED Provider: Jordin Augustine General Adult HPI General Chief complaint: PAIN Stated complaint: phy ref, possible blood clot in Rt arm Time Seen by Provider: 01/28/23 11:02 Mode of Arrival: Ambulatory Source of Information: Patient Limitations: No Limitations Description of Symptoms (Recalled from ER Triage Doc. by RN): Presents to ED with confirmed right sided cephalic thrombosis from doppler performed today. During recent hospital admission patient reports infiltration of toradol to site. Denies hx of clotting disorders or DVT's. History of Present Illness HPI narrative: 2-year-old white female sent from radiology after having a positive venous Doppler of her right arm. She had recent hospitalization for a breast abscess treated by surgery. Upon returning home she had developed tenderness and a cordlike structure at the site of her right arm IV. Doppler today revealed indeed she does have a right cephalic vein thrombosis. She was sent to the ER for initial management and has an appointment with her primary care tomorrow. The patient is already on Bactrim has no medical allergies. Related Data Home Medications Medication Instructions Recorded Confirmed bupropion HCl 150 mg 24 hr tablet, 150 mg PO AM Mood 11/24/22 01/28/23 extended release buspirone 10 mg tablet 10 mg PO PM Anxiety 11/24/22 01/28/23 cariprazine 3 mg capsule (Vraylar) 3 mg PO DAILY Mood 01/20/23 01/28/23 amitriptyline 10 mg tablet 10 mg PO DAILYP PRN Mood 01/21/23 01/28/23 atomoxetine 60 mg capsule 60 mg PO DAILY Mood 01/21/23 01/28/23 fluoxetine 40 mg capsule 40 mg PO AM Mood 01/21/23 01/28/23 folic acid 400 mcg tablet 400 mcg PO DAILY Supplement 01/21/23 01/28/23 ketorolac 10 mg tablet 10 mg PO Q8H PRN Pain 01/21/23 01/28/23 Previous Rx's Medication Instructions Recorded sulfamethoxazole 800 1 tab PO Q12H Infection 5 days #0 01/25/23 mg-trimethoprim 160 mg tablet tabs (Bactrim DS) cephalexin 500 mg capsule 500 mg PO BID 10 days #20 caps 01/28/23 Allergies Allergy/AdvReac Type Severity Reaction Status Date / Time No Known Allergies Allergy Verified 01/28/23 09:13 [facility] Disclaimer: The information contained in this section may have been updated after the patient was seen, as this information can be updated by other users. Medical History Anxiety and depression Left breast abscess Surgical History History of incision and drainage Social History Smoking Status: Current every day smoker tobacco type: cigarettes packs per day: 1 alcohol intake: current substance use type: denies use current occupationa
--- NOTE | 2023-01-28 11:10 | PC.NURSE ---
Asia Valero, patient experience is at BS speaking with patient
[2023-01-28 11:35] VITALS: BP 150/97; PULSE 80; RESP 20; TEMP 36.9; O2SAT 96
== END 2023-01-28 11:36 | disposition home or self-care (01) ==
PROVIDERS: Emergency Provider Emergency Medicine; PCP Nurse Practitioner Family
DX: I82.611 Acute embolism and thrombosis of superficial veins of right upper extremity (principal); F41.9 Anxiety disorder, unspecified; F32.A Depression, unspecified; F17.210 Nicotine dependence, cigarettes, uncomplicated
CPT/HCPCS: 96372; 99283; 99284

== ENCOUNTER 2023-04-19 08:00 | Emergency (ER) | payer OTHER, SELFPAY ==
--- NOTE | 2023-04-19 08:10 | EXP.UTC ---
Discharge Plan Disposition Patient Disposition: Home, Self-Care Condition: Good Prescriptions Prescriptions: New amoxicillin [amoxicillin] 875 mg tablet 875 mg PO Q12H Qty: 20 0RF benzonatate [benzonatate] 100 mg capsule 100 mg PO TIDP PRN (Reason: Cough) Qty: 30 0RF guaifenesin [Mucinex] 600 mg tablet extended release 12hr 600 - 1,200 mg PO BIDP PRN (Reason: Congestion) Qty: 30 0RF methylprednisolone 4 mg Tablets,Dose Pack 4 mg PO DIRECTED Qty: 21 0RF No Action buspirone 10 mg tablet 10 mg PO PM bupropion HCl 150 mg tablet extended release 24 hr 150 mg PO AM Vraylar 3 mg capsule 3 mg PO DAILY Patient Comments: TAKE 1 CAPSULE BY MOUTH EVERY DAY fluoxetine 40 mg capsule 40 mg PO AM Patient Comments: TAKE 1 CAPSULE BY MOUTH EVERY MORNING folic acid 400 mcg tablet 400 mcg PO DAILY Patient Comments: TAKE 1 TABLET BY MOUTH EVERY DAY amitriptyline 10 mg tablet 10 mg PO DAILYP PRN (Reason: Mood) atomoxetine 60 mg capsule 60 mg PO DAILY Patient Comments: TAKE 1 CAPSULE BY MOUTH EVERY DAY FOR 90 DAYS Referrals Follow up/Referrals: Katina Scott PA [Primary Care Provider] - See instructions Activity Restrictions/Add. Instructions Additional Instructions/Restrictions: Drink plenty of fluids. Take tylenol or ibuprofen for pain or fever. Take the medications as directed. Follow up with your regular doctor. GO TO THE ER FOR ANY WORSENING SYMPTOMS Clinical Impressions Clinical Impression: Acute bronchitis, Sinusitis Stand Alone Forms Stand Alone Forms: Work/School Release Instructions Patient Instructions: DI for Sinusitis, DI for Acute Bronchitis Discharge ED Provider: Michael Joy [facility] General Stated complaint: cough congestion shortness of breath Time Seen by Provider: 04/19/23 08:10 History of Present Illness Provider Complaint: She states that for the past 5 days she has had sinus congestion, chest congestion and a productive cough with yellowish sputum. She denies fever/chills. Related Data Home Medications Medication Instructions Recorded Confirmed bupropion HCl 150 mg 24 hr tablet, 150 mg PO AM Mood 11/24/22 04/19/23 extended release buspirone 10 mg tablet 10 mg PO PM Anxiety 11/24/22 04/19/23 cariprazine 3 mg capsule (Vraylar) 3 mg PO DAILY Mood 01/20/23 04/19/23 amitriptyline 10 mg tablet 10 mg PO DAILYP PRN Mood 01/21/23 04/19/23 atomoxetine 60 mg capsule 60 mg PO DAILY Mood 01/21/23 04/19/23 fluoxetine 40 mg capsule 40 mg PO AM Mood 01/21/23 04/19/23 folic acid 400 mcg tablet 400 mcg PO DAILY Supplement 01/21/23 04/19/23 Previous Rx's Medication Instructions Recorded amoxicillin 875 mg tablet 875 mg PO Q12H #20 tabs 04/19/23 benzonatate 100 mg capsule 100 mg PO TIDP PRN Cough #30 caps 04/19/23 guaifenesin 600 mg tablet, 600 - 1,200 mg PO BIDP PRN 04/19/23 extended release 12 hr (Mucinex) Congestion #30 tabs methylprednisolone 4 mg tablets in 4 mg PO DIRECTED #21 tabs 04/19/23 a dose pack Allergies Allergy/AdvReac Type Severity Reaction Status Date / Time No Known Allergies Allergy Verified 04/19/23 08:11 [facility] Disclaimer: The information contained in this section may have been updated after the patient was seen, as this information can be updated by other users. Medical History Anxiety and depression Left breast abscess Surgical History History of incision and drainage Social History Smoking Status: Current every day smoker tobacco type: cigarettes packs per day: 1 alcohol intake: current substance use type: denies use current occupational status: employed Travel in the last 8 weeks: None household members: spouse housing: house current occupation: a
[2023-04-19 08:13] VITALS: BP 131/82; PULSE 89; RESP 16; TEMP 37; O2SAT 97; BMI 56.7
[2023-04-19 08:29] VITALS: BP 131/82; PULSE 89; RESP 16; TEMP 37; O2SAT 97
== END 2023-04-19 08:34 | disposition home or self-care (01) ==
PROVIDERS: Emergency Provider Nurse Practitioner Family; PCP Nurse Practitioner Family
DX: J20.9 Acute bronchitis, unspecified (principal); J01.90 Acute sinusitis, unspecified; F17.210 Nicotine dependence, cigarettes, uncomplicated; F41.9 Anxiety disorder, unspecified; F32.A Depression, unspecified
CPT/HCPCS: 99212; 99214; G0463

== ENCOUNTER 2023-05-03 13:54 | Emergency (ER) | payer OTHER, SELFPAY ==
--- NOTE | 2023-05-03 14:31 | EXP.UTC ---
Discharge Plan Disposition Patient Disposition: Home, Self-Care Condition: Good Prescriptions Prescriptions: New benzonatate [benzonatate] 100 mg capsule 100 mg PO TIDP PRN (Reason: Cough) Qty: 30 0RF ondansetron 4 mg Tablet,Disintegrating 4 mg PO Q8H PRN (Reason: Nausea) Qty: 12 0RF No Action buspirone 10 mg tablet 10 mg PO PM bupropion HCl 150 mg tablet extended release 24 hr 150 mg PO AM Vraylar 3 mg capsule 3 mg PO DAILY Patient Comments: TAKE 1 CAPSULE BY MOUTH EVERY DAY fluoxetine 40 mg capsule 40 mg PO AM Patient Comments: TAKE 1 CAPSULE BY MOUTH EVERY MORNING folic acid 400 mcg tablet 400 mcg PO DAILY Patient Comments: TAKE 1 TABLET BY MOUTH EVERY DAY amitriptyline 10 mg tablet 10 mg PO DAILYP PRN (Reason: Mood) atomoxetine 60 mg capsule 60 mg PO DAILY Patient Comments: TAKE 1 CAPSULE BY MOUTH EVERY DAY FOR 90 DAYS guaifenesin [Mucinex] 600 mg tablet extended release 12hr 600 - 1,200 mg PO BIDP PRN (Reason: Congestion) Qty: 30 0RF Referrals Follow up/Referrals: Katina Scott PA [Primary Care Provider] - See instructions Activity Restrictions/Add. Instructions Additional Instructions/Restrictions: Drink plenty of fluids. Take tylenol or ibuprofen for pain or fever. Take the medications as directed. Follow up with your regular doctor. GO TO THE ER FOR ANY WORSENING SYMPTOMS Clinical Impressions Clinical Impression: Acute viral syndrome, Exposure to 2019 novel coronavirus Stand Alone Forms Stand Alone Forms: Work/School Release Instructions Patient Instructions: Coronavirus Disease 2019, Preventing the Spread of Coronavirus Discharge Instructions Discharge ED Provider: Lázaro Alvarenga [facility] General Stated complaint: fever, cough, congestion, sore throat Time Seen by Provider: 05/03/23 14:31 History of Present Illness Provider Complaint: She states that for the past 2 days she has had chills, body aches, fever and malaise. Related Data Home Medications Medication Instructions Recorded Confirmed bupropion HCl 150 mg 24 hr tablet, 150 mg PO AM Mood 11/24/22 04/19/23 extended release buspirone 10 mg tablet 10 mg PO PM Anxiety 11/24/22 04/19/23 cariprazine 3 mg capsule (Vraylar) 3 mg PO DAILY Mood 01/20/23 04/19/23 amitriptyline 10 mg tablet 10 mg PO DAILYP PRN Mood 01/21/23 04/19/23 atomoxetine 60 mg capsule 60 mg PO DAILY Mood 01/21/23 04/19/23 fluoxetine 40 mg capsule 40 mg PO AM Mood 01/21/23 04/19/23 folic acid 400 mcg tablet 400 mcg PO DAILY Supplement 01/21/23 04/19/23 Previous Rx's Medication Instructions Recorded guaifenesin 600 mg tablet, 600 - 1,200 mg PO BIDP PRN 04/19/23 extended release 12 hr (Mucinex) Congestion #30 tabs benzonatate 100 mg capsule 100 mg PO TIDP PRN Cough #30 caps 05/03/23 ondansetron 4 mg disintegrating 4 mg PO Q8H PRN Nausea #12 tabs 05/03/23 tablet Allergies Allergy/AdvReac Type Severity Reaction Status Date / Time No Known Allergies Allergy Verified 05/03/23 14:[address] [facility] Disclaimer: The information contained in this section may have been updated after the patient was seen, as this information can be updated by other users. Medical History Anxiety and depression Left breast abscess Surgical History History of incision and drainage Social History Smoking Status: Current every day smoker tobacco type: cigarettes packs per day: 1 alcohol intake: current substance use type: denies use current occupational status: employed Travel in the last 8 weeks: None household members: spouse housing: house current occupation: appliance repair current occupational exposures/hazards: No caffeine: Yes ROS Obtained: Yes All systems reviewed &
[2023-05-03 14:35] VITALS: BP 135/93; PULSE 90; RESP 18; TEMP 37.7; O2SAT 98; BMI 59.7
[2023-05-03 15:27] VITALS: BP 135/93; PULSE 90; RESP 18; TEMP 37.7; O2SAT 98
== END 2023-05-03 15:27 | disposition home or self-care (01) ==
PROVIDERS: Emergency Provider Emergency Medicine; PCP Nurse Practitioner Family
DX: R50.9 Fever, unspecified (principal); R53.81 Other malaise; B34.9 Viral infection, unspecified; F17.210 Nicotine dependence, cigarettes, uncomplicated; F41.9 Anxiety disorder, unspecified; F32.A Depression, unspecified
CPT/HCPCS: 87635; 99212; 99214; G0463

== ENCOUNTER 2023-06-03 16:19 | Emergency (ER) | payer OTHER, SELFPAY ==
[2023-06-03 16:20] VITALS: BP 138/95; PULSE 103; RESP 16; TEMP 37.1; O2SAT 99; BMI 58.9
--- NOTE | 2023-06-03 17:14 | EXP.UTC ---
Discharge Plan Disposition Patient Disposition: Home, Self-Care Condition: Good Prescriptions Prescriptions: New benzonatate 100 mg capsule 100 mg PO TID PRN (Reason: cough) Qty: 30 0RF methylprednisolone [Medrol (Catalino)] 4 mg tablets,dose pack See Rx Instructions .Route .COMPLEX 6 Days Qty: 21 0RF Rx Instructions: taper pack; guaifenesin [Mucinex] 600 mg tablet extended release 12hr 1,200 mg PO BID PRN (Reason: cough) Qty: 20 0RF azithromycin [Zithromax Z-Catalino] 250 mg tablet See Rx Instructions .ROUTE .COMPLEX 5 Days Qty: 6 0RF Rx Instructions: For 250 mg dose pack: take 500 mg today (day 1), then 250 mg for 4 days (days 2-5) No Action buspirone 10 mg tablet 10 mg PO PM bupropion HCl 150 mg tablet extended release 24 hr 150 mg PO AM Vraylar 3 mg capsule 3 mg PO DAILY Patient Comments: TAKE 1 CAPSULE BY MOUTH EVERY DAY fluoxetine 40 mg capsule 40 mg PO AM Patient Comments: TAKE 1 CAPSULE BY MOUTH EVERY MORNING folic acid 400 mcg tablet 400 mcg PO DAILY Patient Comments: TAKE 1 TABLET BY MOUTH EVERY DAY amitriptyline 10 mg tablet 10 mg PO DAILYP PRN (Reason: Mood) atomoxetine 60 mg capsule 60 mg PO DAILY Patient Comments: TAKE 1 CAPSULE BY MOUTH EVERY DAY FOR 90 DAYS guaifenesin [Mucinex] 600 mg tablet extended release 12hr 600 - 1,200 mg PO BIDP PRN (Reason: Congestion) Qty: 30 0RF benzonatate [benzonatate] 100 mg capsule 100 mg PO TIDP PRN (Reason: Cough) Qty: 30 0RF ondansetron 4 mg Tablet,Disintegrating 4 mg PO Q8H PRN (Reason: Nausea) Qty: 12 0RF Referrals Follow up/Referrals: Katina Scott PA [Primary Care Provider] - See instructions Activity Restrictions/Add. Instructions Additional Instructions/Restrictions: Start antibiotic today. Be sure to complete entire prescription even if feeling better Monitor temp. Tylenol every 4 hours as needed and / or ibuprofen every 6 hours as needed ( As long as your primary care physician has told you that it ok to take both. For fever/aches/pains ER if no less than 101 despite Tylenol or Motrin Humidifier/vaporizer or hot steamy shower Mucinex during the day for your cough and cough suppressant only at night. Be sure to drink lots of water. *Tessalon Perles will not cause drowsiness but use at bedtime to help stop cough so that you may get some rest. *Start steroid today. Helps with inflammation therefore, cough and wheezing. Follow directions on the package. Reviewed side effects. Patient reports taking them before. Follow up IMMEDIATELY for new or worsening of symptoms OR no noticeable improvement over the next 48-72 hours. 911 immediately for any life threatening symptoms such as chest pain or difficulty breathing Clinical Impressions Clinical Impression: Acute bronchitis Qualifiers: Bronchitis organism: unspecified organism Qualified Code(s): J20.9 - Acute bronchitis, unspecified Sinusitis Qualifiers: Sinusitis location: unspecified location Chronicity: unspecified Qualified Code(s): J32.9 - Chronic sinusitis, unspecified Instructions Patient Instructions: DI for Sinusitis, Sinusitis, Sinus Headache Discharge ED Provider: Denise Washington [facility] HPI General Stated complaint: cough, artur Mode of Arrival: Ambulatory Source of Information: Patient Limitations: No Limitations Time Seen by Provider: 06/03/23 17:14 Description of Symptoms (Recalled from Triage Doc. by RN): Patient reports persistent cough for 2 days. HEENT Symptoms (Recalled from RN notes): No Resp Symptoms (Recalled from RN notes): Yes Skin Symptoms (Recalled from RN notes): No MS Symptoms (Recalled from RN notes): No Functional Status (Recalled from RN notes): wnl History of Present Illness Provider Complaint: Patient states that she started about 5 days ago with nasal congestion and pressure State that for the last couple of days she
[2023-06-03 17:58] VITALS: BP 138/95; PULSE 103; RESP 16; TEMP 37.1; O2SAT 99
== END 2023-06-03 17:59 | disposition home or self-care (01) ==
PROVIDERS: Emergency Provider Nurse Practitioner; PCP Nurse Practitioner Family
DX: J20.9 Acute bronchitis, unspecified (principal); J01.90 Acute sinusitis, unspecified; F17.210 Nicotine dependence, cigarettes, uncomplicated; F41.9 Anxiety disorder, unspecified; F32.A Depression, unspecified
CPT/HCPCS: 99212; 99214; G0463

== ENCOUNTER 2023-06-24 16:58 | Emergency (ER) | payer OTHER, SELFPAY ==
[2023-06-24 17:10] VITALS: BP 130/83; PULSE 75; RESP 20; TEMP 36.8; O2SAT 99; BMI 59.5
--- NOTE | 2023-06-24 17:14 | EXP.UTC ---
Discharge Plan Disposition Patient Disposition: Home, Self-Care Condition: Good Prescriptions Prescriptions: New amoxicillin [amoxicillin] 875 mg tablet 875 mg PO Q12H Qty: 20 0RF benzonatate [benzonatate] 100 mg capsule 100 mg PO TIDP PRN (Reason: Cough) Qty: 30 0RF methylprednisolone 4 mg Tablets,Dose Pack 4 mg PO DIRECTED Qty: 21 0RF ondansetron 4 mg Tablet,Disintegrating 4 mg PO Q8H PRN (Reason: Nausea) Qty: 12 0RF No Action buspirone 10 mg tablet 10 mg PO PM Vraylar 3 mg capsule 3 mg PO DAILY Patient Comments: TAKE 1 CAPSULE BY MOUTH EVERY DAY fluoxetine 40 mg capsule 40 mg PO AM Patient Comments: TAKE 1 CAPSULE BY MOUTH EVERY MORNING folic acid 400 mcg tablet 400 mcg PO DAILY Patient Comments: TAKE 1 TABLET BY MOUTH EVERY DAY hydrochlorothiazide 25 mg tablet 25 mg PO DAILY Patient Comments: TAKE 1 TABLET BY MOUTH EVERY DAY bupropion HCl 300 mg tablet extended release 24 hr 300 mg PO DAILY Patient Comments: TAKE 1 TABLET BY MOUTH EVERY DAY Referrals Follow up/Referrals: Katina Scott PA [Primary Care Provider] - See instructions Activity Restrictions/Add. Instructions Additional Instructions/Restrictions: Drink plenty of fluids. Take tylenol or ibuprofen for pain or fever. Take the medications as directed. Follow up with your regular doctor. GO TO THE ER FOR ANY WORSENING SYMPTOMS Clinical Impressions Clinical Impression: Acute bronchitis, Acute viral syndrome Stand Alone Forms Stand Alone Forms: Work/School Release Instructions Patient Instructions: Acute Bronchitis, DI for Acute Bronchitis Discharge ED Provider: Michael Joy [facility] General Stated complaint: cough, N/V Time Seen by Provider: 06/24/23 17:14 History of Present Illness Provider Complaint: She states that she has had a productive cough, sore throat, and malaise for the past 4 days. Since yesterday she has had n/v. Related Data Home Medications Medication Instructions Recorded Confirmed buspirone 10 mg tablet 10 mg PO PM Anxiety 11/24/22 06/24/23 cariprazine 3 mg capsule (Vraylar) 3 mg PO DAILY Mood 01/20/23 06/24/23 fluoxetine 40 mg capsule 40 mg PO AM Mood 01/21/23 06/24/23 folic acid 400 mcg tablet 400 mcg PO DAILY Supplement 01/21/23 06/24/23 bupropion HCl 300 mg 24 hr tablet, 300 mg PO DAILY 06/24/23 06/24/23 extended release hydrochlorothiazide 25 mg tablet 25 mg PO DAILY 06/24/23 06/24/23 Previous Rx's Medication Instructions Recorded amoxicillin 875 mg tablet 875 mg PO Q12H #20 tabs 06/24/23 benzonatate 100 mg capsule 100 mg PO TIDP PRN Cough #30 caps 06/24/23 methylprednisolone 4 mg tablets in 4 mg PO DIRECTED #21 tabs 06/24/23 a dose pack ondansetron 4 mg disintegrating 4 mg PO Q8H PRN Nausea #12 tabs 06/24/23 tablet Allergies Allergy/AdvReac Type Severity Reaction Status Date / Time No Known Allergies Allergy Verified 06/24/23 17:18 [facility] Disclaimer: The information contained in this section may have been updated after the patient was seen, as this information can be updated by other users. Medical History Anxiety and depression Left breast abscess Surgical History History of incision and drainage Social History Smoking Status: Current every day smoker tobacco type: cigarettes packs per day: 1 alcohol intake: current substance use type: denies use current occupational status: employed Travel in the last 8 weeks: None household members: spouse housing: house current occupation: appliance repair current occupational exposures/hazards: No caffeine: Yes ROS Obtained: Yes All systems reviewed & no additional complaints except as documented Constitutional Constitutional: R
[2023-06-24 18:00] VITALS: BP 130/83; PULSE 75; RESP 18; TEMP 36.8; O2SAT 99
== END 2023-06-24 18:00 | disposition home or self-care (01) ==
PROVIDERS: Emergency Provider Nurse Practitioner Family; PCP Nurse Practitioner Family
DX: J20.9 Acute bronchitis, unspecified (principal); R11.2 Nausea with vomiting, unspecified; R07.0 Pain in throat; R53.81 Other malaise; B34.9 Viral infection, unspecified; F17.210 Nicotine dependence, cigarettes, uncomplicated; F41.9 Anxiety disorder, unspecified; F32.A Depression, unspecified
CPT/HCPCS: 87635; 99212; 99214; G0463

== ENCOUNTER 2023-06-29 22:37 | Emergency (ER) | payer OTHER, SELFPAY ==
[2023-06-29 22:45] VITALS: BP 123/70; PULSE 109; RESP 16; TEMP 37.1; O2SAT 99; BMI 59.5
[2023-06-29 23:02] LABS: Coronavirus 19, PCR Not Detected (NotDetected); Influenza A, PCR Not Detected (NotDetected); Influenza B, PCR Not Detected (NotDetected)
[2023-06-29 23:21] VITALS: BP 103/57; PULSE 68; O2SAT 99
--- NOTE | 2023-06-29 23:26 | HMH.EDGENADL ---
Discharge Plan Disposition Patient Disposition: Home, Self-Care Condition: Good Prescriptions Prescriptions: New ondansetron 4 mg tablet,disintegrating 4 mg PO Q8H 4 Days Qty: 12 0RF No Action buspirone 10 mg tablet 10 mg PO PM Vraylar 3 mg capsule 3 mg PO DAILY Patient Comments: TAKE 1 CAPSULE BY MOUTH EVERY DAY fluoxetine 40 mg capsule 40 mg PO AM Patient Comments: TAKE 1 CAPSULE BY MOUTH EVERY MORNING folic acid 400 mcg tablet 400 mcg PO DAILY Patient Comments: TAKE 1 TABLET BY MOUTH EVERY DAY hydrochlorothiazide 25 mg tablet 25 mg PO DAILY Patient Comments: TAKE 1 TABLET BY MOUTH EVERY DAY bupropion HCl 300 mg tablet extended release 24 hr 300 mg PO DAILY Patient Comments: TAKE 1 TABLET BY MOUTH EVERY DAY benzonatate [benzonatate] 100 mg capsule 100 mg PO TIDP PRN (Reason: Cough) Qty: 30 0RF Referrals Follow up/Referrals: Katina Scott PA [Primary Care Provider] - See instructions Clinical Impressions Clinical Impression: Viral gastroenteritis Instructions Patient Instructions: Nausea and Vomiting-Adult Discharge ED Provider: Nichol Huertas [facility] Adult HPI General Chief complaint: Nausea/Vomiting/Diarrhea Stated complaint: FEVER, SOA, CHILLS, VOMITTING Time Seen by Provider: 06/29/23 23:19 Mode of Arrival: Ambulatory Source of Information: Patient Limitations: No Limitations Description of Symptoms (Recalled from ER Triage Doc. by RN): pt c/o SOA, N/V/D, fever and chills. pt states her children have had a stomach virus. LMP-current. pt states she originally was treated on 06/03 for a sinus infection. pt was treated with azithromycin. she was seen again on 06/24 and told it had turned into bronchitis. at this time she stopped her azithromycin and started methylprednisolone and amoxicillin. History of Present Illness HPI narrative: Patient has no significant PMHx who presents to the ED with complaints of SOA, N/V/D, fever and chills. Pt notes that starting this morning, she has been having N/V/D, noting more than 3-4 episodes of each, all non-bloody. Patient notes that states her children have had a stomach virus. LMP-current. Patient notes that she has had some fevers and chills today. In terms of her SOB, patient notes that she originally was treated on 06/03 for a sinus infection. pt was treated with azithromycin. Then, she was seen again on 06/24 and told it had turned into bronchitis. At this time she stopped her azithromycin and started methylprednisolone and amoxicillin. Patient notes that her symptoms has progressively improved, but notes she has been more fatigued today due to the N/V/D Related Data Home Medications Medication Instructions Recorded Confirmed buspirone 10 mg tablet 10 mg PO PM Anxiety 11/24/22 06/29/23 cariprazine 3 mg capsule (Vraylar) 3 mg PO DAILY Mood 01/20/23 06/29/23 fluoxetine 40 mg capsule 40 mg PO AM Mood 01/21/23 06/29/23 folic acid 400 mcg tablet 400 mcg PO DAILY Supplement 01/21/23 06/29/23 bupropion HCl 300 mg 24 hr tablet, 300 mg PO DAILY 06/24/23 06/29/23 extended release hydrochlorothiazide 25 mg tablet 25 mg PO DAILY 06/24/23 06/29/23 Previous Rx's Medication Instructions Recorded benzonatate 100 mg capsule 100 mg PO TIDP PRN Cough #30 caps 06/24/23 ondansetron 4 mg disintegrating 4 mg PO Q8H 4 days #12 tabs 06/30/23 tablet Allergies Allergy/AdvReac Type Severity Reaction Status Date / Time No Known Allergies Allergy Verified 06/29/23 22:51 [facility] Disclaimer: The information contained in this section may have been updated after the patient was seen, as this information can be updated by other users. Medical History Anxiety and depression Left breast abscess Surgical History History of incision and drainage Social Histo
[2023-06-29 23:30] VITALS: BP 113/76; PULSE 66; O2SAT 99
[2023-06-29 23:59] LABS: Chloride 104 mmol/L (98-107); Sodium 136 mmol/L (136-145)
[2023-06-30] LABS: Potassium 4.2 mmoL/L (3.5-5.1)
[2023-06-30 00:02] LABS: Alanine Aminotransferase 42 U/L (12-78); Albumin Level 3.6 g/dl (3.5-5.0); Albumin/Globulin Ratio 1.1 (1.1-1.8); Alkaline Phosphatase 52 U/L (38-126); Anion Gap 10.2 mEq/L (5-15); Aspartate Amino Transferase 48 U/L (14-36); Bilirubin,Total 0.3 mg/dl (0.2-1.3); Blood Urea Nitrogen 4 mg/dl (7-17); Calcium 8.1 mg/dl (8.4-10.2); Carbon Dioxide 26 mmol/L (22.0-30.0); Creatinine Clearance Estimated 87 mL/min (50-200); Estimated Glomerular Filt Rate 97 ml/min (>60); GFR (African American) 117 ML/MIN (>60); Globulin 3.2 g/dL (1.3-3.2); Glucose 133 mg/dl (74-100); Lipase 139 U/L (23-300); Total Protein,Serum 6.8 g/dl (6.3-8.2)
--- NOTE | 2023-06-30 00:13 | PC.NURSE ---
pt assisted to bathroom, returned to her room, call light within reach. no other needs at this time
[2023-06-30 00:30] LABS: Hematocrit 38.8 % (37.0-47.0); Hemoglobin 12.9 g/dL (12.2-16.2); Mean Corpuscular HGB Conc 33.1 g/dL (31.8-35.4); Mean Corpuscular Hemoglobin 30.9 pg (27.0-31.2); Mean Corpuscular Volume 93.4 fl (81-99); Red Blood Count 4.16 M/mm3 (4.20-5.40); White Blood Count 14.5 K/mm3 (4.8-10.8)
[2023-06-30 00:31] VITALS: BP 118/77; PULSE 83; O2SAT 94
[2023-06-30 00:31] LABS: Basophils # 0.1 K/mm3 (0-0.2); Basophils % 0.5 % (0.1-2.0); Eosinophils # 0.3 K/mm3 (0.0-0.4); Eosinophils % 2.2 % (0.1-12.0); Lymphocytes # 1.5 K/mm3 (0.7-4.5); Lymphocytes % 10.4 % (10-50); Mean Platelet Volume 8.5 fl (7.4-10.4); Monocytes # 0.6 K/mm3 (0.1-1.0); Monocytes % 4.1 % (1.7-9.3); Neutrophils # 11.9 K/mm3 (1.8-7.8); Neutrophils % 82.2 % (37.0-80.0); Platelet Count 345 K/mm3 (142-424); Red Cell Distribution Width 15.8 % (11.5-17.5)
[2023-06-30 01:09] VITALS: BP 111/76; PULSE 82; RESP 16; TEMP 37; O2SAT 96
== END 2023-06-30 01:12 | disposition home or self-care (01) ==
PROVIDERS: Student in an Organized Health Care Education/Training Program; Emergency Provider Emergency Medicine; PCP Nurse Practitioner Family
DX: R06.02 Shortness of breath (principal); R11.2 Nausea with vomiting, unspecified; R19.7 Diarrhea, unspecified; R50.9 Fever, unspecified; F17.210 Nicotine dependence, cigarettes, uncomplicated; A08.4 Viral intestinal infection, unspecified
CPT/HCPCS: 80053; 83690; 85025; 87636; 96361; 96374; 99285; J2405

== ENCOUNTER → 2023-07-22 13:51 | Outpatient (CLI) | payer OTHER, SELFPAY ==
--- NOTE | 2023-07-22 13:59 | MM_ITS ---
PROCEDURE INFORMATION: Exam: MG Right Diagnostic Breast Tomosynthesis Exam date and time: 07/22/2023 1:46 PM Age: 33 years old Clinical indication: Concern for right palpable lump with right milky nipple discharge. History of breast abscess bilaterally. No family history of breast cancer. TECHNIQUE: Imaging protocol: Right Diagnostic tomosynthesis and 2D mammography including computer-aided detection (CAD) when performed. Unilateral or bilateral exam. Triangular skin marker placed on palpable concern on the right with spot compression added. COMPARISON: 1. MG MM DIG MAMM BI DX W/CAD 07/27/2019 1:48 PM 2. US BREAST RT COMPLETE 01/21/2023 7:10 AM 3. US BREAST RT COMPLETE 07/27/2019 2:34 PM FINDINGS: MAMMOGRAPHY: Breast composition: There are scattered areas of fibroglandular density. Mass: Corresponding to the palpable concern in the right subareolar region, uestionable oval 1.0 cm mass, more low-density in appearance. Architectural distortion: None. Calcifications: No suspicious calcifications. Asymmetric density: None. Skin thickening: None. Axillary adenopathy: None. IMPRESSION: Patient will be recalled for right sonography for further evaluation of questionable mass in the right subareolar region.Further evaluation of a palpable abnormality should be based on clinical grounds regardless of radiographic findings or lack thereof. Patient reports left milky nipple discharge. If the discharge becomes spontaneous and is clear or bloody, this could be further evaluated r breast MRI and/or surgical consultation as clinically warranted. ASSESSMENT: BI-RADS Category 0: Incomplete- Need Additional Imaging Evaluation and/or Prior Mammograms for Comparison
== END ==
LOC: RAD 13:52
PROVIDERS: PCP Nurse Practitioner Family; Visit Provider Nurse Practitioner Family
DX: N63.41 Unspecified lump in right breast, subareolar (principal); N64.52 Nipple discharge
CPT/HCPCS: 77062; 77066; G0279

== ENCOUNTER → 2023-08-02 10:39 | Outpatient (CLI) | payer OTHER, SELFPAY ==
--- NOTE | 2023-08-02 10:45 | US_ITS ---
PROCEDURE INFORMATION: Exam: US Right Breast, Complete Exam date and time: 08/02/2023 10:46 AM Age: 33 years old Clinical indication: Palpable abnormality in the right breast. TECHNIQUE: Imaging protocol: Complete ultrasound of all four quadrants of the right breast and the retroareolar regions, including ultrasound of the axilla when performed. COMPARISON: US BREAST RT COMPLETE 01/21/2023 7:10 AM FINDINGS: Breast: Sonographic images of the right breast including the retroareolar region, all 4 quadrants and the axilla demonstrates an ovoid uniformly isoechoic solid mass in the immediate retroareolar region corresponding to the mass on mammography. It is likely intraductal in location given the peripheral crescentic hypoechogenicity surrounding the mass. The mass measures approximately 1.9 x 0.9 x 1.4 cm in dimension. No architectural distortion or acoustical shadowing. No skin thickening or axillary adenopathy. IMPRESSION: Right 3 o'clock retroareolar mass may represent a papillary lesion. This corresponds to the patient's complaint of a palpable abnormality. Ultrasound-guided core biopsy is recommended for further evaluation. ASSESSMENT: BI-RADS Category 4: Suspicious
== END ==
PROVIDERS: PCP Nurse Practitioner Family; Visit Provider Nurse Practitioner Family
DX: N61.1 Abscess of the breast and nipple (principal)
CPT/HCPCS: 76641

== ENCOUNTER 2023-08-15 09:04 | Emergency (ER) | payer OTHER, SELFPAY ==
[2023-08-15 09:15] VITALS: BP 126/64; PULSE 98; RESP 19; TEMP 37; O2SAT 99; BMI 59.1
--- NOTE | 2023-08-15 09:29 | EXP.UTC ---
Discharge Plan Disposition Patient Disposition: Home, Self-Care Condition: Good Prescriptions Prescriptions: New methylprednisolone 4 mg Tablets,Dose Pack 4 mg PO DIRECTED 6 Days Qty: 21 0RF Rx Instructions: Take 1 pack as directed for 6 days amoxicillin-pot clavulanate 875-125 mg Tablet 1 tab PO Q12H Qty: 20 0RF guaifenesin [Mucinex] 600 mg tablet extended release 12hr 600 - 1,200 mg PO BIDP PRN (Reason: Congestion) Qty: 30 0RF ciprofloxacin-dexamethasone 0.3-0.1 % Drops,Suspension 2 drp Ear-Left BID 7 Days Qty: 1 0RF No Action buspirone 10 mg tablet 10 mg PO PM Vraylar 3 mg capsule 3 mg PO DAILY Patient Comments: TAKE 1 CAPSULE BY MOUTH EVERY DAY fluoxetine 40 mg capsule 40 mg PO AM Patient Comments: TAKE 1 CAPSULE BY MOUTH EVERY MORNING folic acid 400 mcg tablet 400 mcg PO DAILY Patient Comments: TAKE 1 TABLET BY MOUTH EVERY DAY hydrochlorothiazide 25 mg tablet 25 mg PO DAILY Patient Comments: TAKE 1 TABLET BY MOUTH EVERY DAY bupropion HCl 300 mg tablet extended release 24 hr 300 mg PO DAILY Patient Comments: TAKE 1 TABLET BY MOUTH EVERY DAY amitriptyline 25 mg tablet 25 mg PO DAILY Patient Comments: TAKE 1 TABLET BY MOUTH EVERY DAY IN THE EVENING Referrals Follow up/Referrals: Katina Scott PA [Primary Care Provider] - See instructions Activity Restrictions/Add. Instructions Additional Instructions/Restrictions: Drink plenty of fluids. Take tylenol or ibuprofen for pain or fever. Take the medications as directed. Follow up with your regular doctor. GO TO THE ER FOR ANY WORSENING SYMPTOMS Use the ear drops in your left ear as directed. Instructions Patient Instructions: Middle Ear Infection, Ruptured Eardrum, DI for Sinusitis Discharge ED Provider: Michael Joy [facility] General Stated complaint: bleeding left ear, cough,congestion Time Seen by Provider: 08/15/23 09:29 History of Present Illness Provider Complaint: She states that for the past 4 days she has had worsening sinus and ear pressure. She states that her left ear started having bloody drainage from it last night. She denies fever/chills/body aches. Related Data Home Medications Medication Instructions Recorded Confirmed buspirone 10 mg tablet 10 mg PO PM Anxiety 11/24/22 08/15/23 cariprazine 3 mg capsule (Vraylar) 3 mg PO DAILY Mood 01/20/23 08/15/23 fluoxetine 40 mg capsule 40 mg PO AM Mood 01/21/23 08/15/23 folic acid 400 mcg tablet 400 mcg PO DAILY Supplement 01/21/23 08/15/23 bupropion HCl 300 mg 24 hr tablet, 300 mg PO DAILY 06/24/23 08/15/23 extended release hydrochlorothiazide 25 mg tablet 25 mg PO DAILY 06/24/23 08/15/23 amitriptyline 25 mg tablet 25 mg PO DAILY 08/15/23 08/15/23 Previous Rx's Medication Instructions Recorded amoxicillin 875 mg-potassium 1 tab PO Q12H #20 tabs 08/15/23 clavulanate 125 mg tablet ciprofloxacin 0.3 %-dexamethasone 2 drp Ear-Left BID 7 days #1 ea 08/15/23 0.1 % ear drops,suspension guaifenesin 600 mg tablet, 600 - 1,200 mg PO BIDP PRN 08/15/23 extended release 12 hr (Mucinex) Congestion #30 tabs methylprednisolone 4 mg tablets in 4 mg PO DIRECTED 6 days #21 tabs 08/15/23 a dose pack Allergies Allergy/AdvReac Type Severity Reaction Status Date / Time No Known Allergies Allergy Verified 08/15/23 09:32 [facility] Disclaimer: The information contained in this section may have been updated after the patient was seen, as this information can be updated by other users. Medical History Anxiety and depression Left breast abscess Surgical History History of incision and drainage Social History Smoking Status: Current every day smoker tobacco type: cigarettes packs per day: 1 alcohol intake: current substance use type: denies use current occupational status: employed Travel in the last 8 weeks: None household members: spouse housing: house current occupation: appliance repair current occupational exposures/hazards: No caffeine: Yes ROS Obtained: Yes All systems reviewed & no additional complaints except as documented Constitutional Constitutional: Reports poor appetite Eyes Eyes: Reports system reviewed and no additional complaints, except as documented ENT Ears, Nose, Mouth, and Throat: Reports as per HPI Cardiovascular Cardiovascular: Reports system reviewed and no additional complaints, except as documented and Denies chest pain Respiratory Respiratory: Denies shortness of breath, Denies chest congestion, Reports cough, Denies stridor and Denies wheezing Gastrointestinal Gastrointestingal: Reports system reviewed and no additional complaints, except as documented; Denies abdominal pain, diarrhea or vomiting Musculoskeletal Musculoskeletal: Reports system reviewed and no additional complaints, except as documented and Denies arthralgias Integumentary/Breasts Skin/Breast: Reports system reviewed and no additional complaints, except as documented and Denies rash Neurologic Neurologic: Denies paresthesias Allergic/Immunologic Allergic/Immunologic: Denies wheezing Physical Exam General General appearance: alert and in no apparent distress Head Head exam: atraumatic, normocephalic and normal inspection Eye Eye exam: Present normal appearance; Absent PERRL or EOMI ENT ENT exam: Present mucous membranes moist and normal external ear exam Expanded ENT Exam TM/Canal exam: Left TM: perforation and Bilateral TM: erythema, bulging and effusion Nose exam: Absent sinus tenderness Nasal speculum exam: Bilateral: normal Mouth exam: Present normal external inspection and other; Absent drooling Teeth exam: Present normal inspection Throat exam: Present tonsillar erythema and tonsillomegaly Neck Neck exam: Present normal inspection, full ROM and trachea midline; Absent tenderness, meningismus or lymphadenopathy Chest Chest inspection: Present normal inspection and symmetric chest wall rise; Absent tenderness Respiratory Respiratory exam: Present normal lung sounds bilaterally; Absent respiratory distress, wheezes or stridor Cardiovascular Cardiovascular exam: Present regular rate, normal rhythm and normal heart sounds; Absent tachycardia or irregular rhythm Abdominal Exam Abdominal exam: Present soft and normal bowel sounds; Absent distention, tenderness, guarding, rebound or rigidity Extremities Exam Extremities exam: Present normal inspection and normal capillary refill; Absent tenderness, joint swelling or calf tenderness Back Exam Back exam: Present normal inspection and full ROM; Absent tenderness, CVA tenderness (R) or CVA tenderness (L) Neurological Exam Neurological exam: Present alert, oriented X3, CN II-XII intact, normal gait and reflexes normal; Absent motor sensory deficit Psychiatric Psychiatric exam: Present normal affect and normal mood Skin Skin exam: Present warm, dry, intact and normal color Lymphatic Lymphatic Findings: no adenopathy Medical Decision Making Medical Records Medical records reviewed: No I reviewed the patient's medical records. Pawan Inquiry Pt receiving controlled substance: No
[2023-08-15 09:57] VITALS: BP 126/64; PULSE 98; RESP 18; TEMP 37; O2SAT 99
== END 2023-08-15 09:57 | disposition home or self-care (01) ==
PROVIDERS: Emergency Provider Nurse Practitioner Family; PCP Nurse Practitioner Family
DX: H66.012 Acute suppurative otitis media with spontaneous rupture of ear drum, left ear (principal); H66.93 Otitis media, unspecified, bilateral; R05.9 Cough, unspecified; R09.81 Nasal congestion; F17.210 Nicotine dependence, cigarettes, uncomplicated
CPT/HCPCS: 99212; 99214; G0463

== ENCOUNTER 2023-08-25 07:29 | Outpatient (CLI) | payer OTHER, SELFPAY ==
--- NOTE | 2023-08-25 07:34 | US_ITS ---
FINAL REPORT CLINICAL HISTORY: RT BREAST LUMP -- DR. JABIER BARKER -- RT BREAST 300 RETROAREOLAR FINDINGS: ULTRASOUND-GUIDED RIGHT BREAST CORE BIOPSY TECHNIQUE: Limited images were obtained to localize region of interest. The right breast was prepped in a routine sterile fashion and locally anesthetized with 1% lidocaine. Standard written informed consent was obtained. Patient has a history of right breast abscess with previous surgical drainage in the region of the abnormality in the retroareolar right breast at 3:00.. The abnormality on ultrasound showed a hypoechoic changes somewhat suggestive of complex fluid. 18 and 15-gauge needles were directed into the presumed fluid collection but no fluid could be aspirated. This is favored to be chronic postinflammatory process. However biopsy was performed directed toward the side. The biopsy needle was positioned within the outer periphery of the lesion. A total of 3 passes were made with a 16 gauge core biopsy needle. No clip was placed at the site of biopsy given concern for infection. Procedure was well tolerated . CONCLUSION: 1. Technically successful ultrasound guided core biopsy of right breast lesion as above. 2. 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 Ultrasound follow-up recommended in 3 months as part of normal surveillance Authenticated and ERN
== END 2023-08-25 23:59 ==
LOC: RAD 07:29
PROVIDERS: PCP Nurse Practitioner Family; Visit Provider Nurse Practitioner Family
DX: N63.41 Unspecified lump in right breast, subareolar (principal); R92.8 Other abnormal and inconclusive findings on diagnostic imaging of breast
CPT/HCPCS: 10005; 76942

== ENCOUNTER 2024-01-12 10:22 | Emergency (ER) | payer OTHER, SELFPAY ==
[2024-01-12 10:22] VITALS: BP 123/73; PULSE 81; RESP 13; TEMP 36.7; O2SAT 98; BMI 59.5
--- NOTE | 2024-01-12 10:26 | ECG_ITS ---
APPROVED REPORT Exam: Resting ECG HR:75 bpm ECG Measurements Heart Rate 75 AXES WY 161 P 51 QRSd 97 QRS 11 QT 418 T 35 QTc 447 Conclusion SINUS RHYTHM LOW QRS VOLTAGE IN PRECORDIAL LEADS [QRS DEFLECTION < 1.0 mV IN CHEST LEADS] BORDERLINE ECG Electronically signed by : NICK JARQUIN, 01/12/2024 16:11:19
[2024-01-12 10:35] VITALS: PULSE 81
--- NOTE | 2024-01-12 10:40 | XR_ITS ---
FINAL REPORT TECHNIQUE: Chest PA & Lateral CLINICAL HISTORY: chest pain x 1 month COUGH FINDINGS: 2 views of the chest were performed. The heart size is normal. The mediastinum is within normal limits. The lungs are underinflated. There is no acute cardiopulmonary process. There are no pleural effusions. There is no pneumothorax. The bony thorax appears intact. IMPRESSION: No acute cardiopulmonary process. Reviewed, Interpreted and Dictated by Pro Hernández MD Transcribed by Rosie Lilly Authenticated and [facility]
[2024-01-12 10:46] VITALS: BP 133/58; PULSE 64; RESP 16; O2SAT 97
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
[2024-01-12 10:57] LABS: Basophils # 0.1 K/mm3 (0-0.2); Basophils % 0.8 % (0.1-2.0); Eosinophils # 0.4 K/mm3 (0.0-0.4); Eosinophils % 3.5 % (0.1-12.0); Hematocrit 39.6 % (37.0-47.0); Hemoglobin 12.6 g/dL (12.2-16.2); Lymphocytes # 4.5 K/mm3 (0.7-4.5); Lymphocytes % 38.5 % (10-50); Mean Corpuscular HGB Conc 31.9 g/dL (31.8-35.4); Mean Corpuscular Hemoglobin 30.5 pg (27.0-31.2); Mean Corpuscular Volume 95.7 fl (81-99); Mean Platelet Volume 8.4 fl (7.4-10.4); Monocytes # 0.4 K/mm3 (0.1-1.0); Monocytes % 3.4 % (1.7-9.3); Neutrophils # 6.2 K/mm3 (1.8-7.8); Neutrophils % 53.8 % (37.0-80.0); Platelet Count 307 K/mm3 (142-424); Red Blood Count 4.14 M/mm3 (4.20-5.40); Red Cell Distribution Width 17.4 % (11.5-17.5); White Blood Count 11.6 K/mm3 (4.8-10.8)
[2024-01-12 11:10] LABS: Alanine Aminotransferase 29 U/L (12-78); Albumin Level 3.5 g/dl (3.5-5.0); Albumin/Globulin Ratio 1.1 (1.1-1.8); Alkaline Phosphatase 54 U/L (38-126); Anion Gap 11.6 mEq/L (5-15); Aspartate Amino Transferase 38 U/L (14-36); Bilirubin,Total 0.3 mg/dl (0.2-1.3); Blood Urea Nitrogen 4 mg/dl (7-17); Calcium 8.8 mg/dl (8.4-10.2); Carbon Dioxide 25 mmol/L (22.0-30.0); Chloride 107 mmol/L (98-107); Creatinine Clearance Estimated 76 mL/min (50-200); Estimated Glomerular Filt Rate 83 ml/min (>60); GFR (African American) 101 ML/MIN (>60); Globulin 3.2 g/dL (1.3-3.2); Glucose 103 mg/dl (74-100); Potassium 3.6 mmoL/L (3.5-5.1); Sodium 140 mmol/L (136-145); Total Protein,Serum 6.7 g/dl (6.3-8.2)
[2024-01-12 11:23] LABS: HCG Qualitative, Serum Negative (Negative)
[2024-01-12 11:27] LABS: T4 (Thyroxine) 6.8 ug/dl (5.53-11.0); Troponin I < 0.01 ng/ml (0.00-0.034)
[2024-01-12 11:30] VITALS: PULSE 68; O2SAT 99
[2024-01-12 11:41] LABS: Thyroid Stimulating Hormone 3.74 uIU/mL (0.465-4.68)
[2024-01-12 13:06] VITALS: BP 120/70; PULSE 62; RESP 16; TEMP 36.7; O2SAT 99
[2024-01-12 13:22] VITALS: BP 127/87; PULSE 64; RESP 20; TEMP 36.7; O2SAT 99
== END 2024-01-12 13:05 | disposition home or self-care (01) ==
PROVIDERS: Emergency Provider Emergency Medicine; PCP Nurse Practitioner Family
DX: R07.9 Chest pain, unspecified (principal); F17.210 Nicotine dependence, cigarettes, uncomplicated; F41.1 Generalized anxiety disorder; F31.9 Bipolar disorder, unspecified
CPT/HCPCS: 71046; 80053; 84436; 84443; 84484; 84703; 85025; 93005; 99284

== ENCOUNTER 2024-08-14 17:37 | Emergency (ER) | payer OTHER, SELFPAY ==
[2024-08-14 18:00] VITALS: BP 139/87; PULSE 80; RESP 19; TEMP 36.8; O2SAT 98; BMI 49.8
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
[2024-08-14 18:31] LABS: UTC Influenza A Antigen Negative (Negative); UTC Influenza B Antigen Negative (Negative); UTC Strep Screen (Rapid) Negative (Negative)
[2024-08-14 18:40] VITALS: BP 139/87; PULSE 80; RESP 19; TEMP 36.8; O2SAT 98
== END 2024-08-14 18:42 | disposition home or self-care (01) ==
PROVIDERS: Emergency Provider Nurse Practitioner; PCP Nurse Practitioner Family
DX: J32.9 Chronic sinusitis, unspecified (principal); J40 Bronchitis, not specified as acute or chronic; R05.9 Cough, unspecified; R53.83 Other fatigue; J02.9 Acute pharyngitis, unspecified; R09.81 Nasal congestion; R09.89 Other specified symptoms and signs involving the circulatory and respiratory systems; R51.9 Headache, unspecified; M79.10 Myalgia, unspecified site
CPT/HCPCS: 87804; 87880; 99212; G0381

== ENCOUNTER 2025-01-02 10:34 | Emergency (ER) | payer OTHER, SELFPAY ==
[2025-01-02 10:43] VITALS: BP 111/54; PULSE 64; RESP 18; TEMP 36.9; O2SAT 98; BMI 47.2
[2025-01-02 10:56] LABS: Microscopic, Urine URINE MICROSCOPIC (MICROSCOPIC)
[2025-01-02 11:12] LABS: Appearance,Urine CLEAR (Clear); Bilirubin,Urine Negative (Negative); Blood, Urine TRACE-I (Negative); Color,Urine YELLOW (Yellow); Glucose,Urine (UA) Negative (Negative); Ketones,Urine Negative (Negative); Leukocyte Esterase,Urine Negative (Negative); Nitrate,Urine POSITIVE (Negative); PH,Urine 6.5 (5.0-8.5); Protein,Urine Negative (Negative); Specific Gravity, Urine <= 1.005 (1.005-1.030); Urobilinogen,Urine 0.2 EU/dl (0.2)
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
--- NOTE | 2025-01-02 11:23 | ECG_ITS ---
APPROVED REPORT Exam: Resting ECG HR:57 bpm ECG Measurements Heart Rate 57 AXES AL 141 P 51 QRSd 97 QRS 66 QT 422 T 50 QTc 416 Conclusion SINUS BRADYCARDIA WITH SINUS ARRHYTHMIA BORDERLINE ECG no STEMI Electronically signed by : KARMEN FRANCO, 01/03/2025 02:58:08
[2025-01-02 11:43] LABS: Bacteria,Urine 1+ /lpf; RBC,Urine Occasional #/hpf (0-3)
[2025-01-02 11:57] LABS: Basophils # 0.1 K/mm3 (0-0.2); Basophils % 0.5 % (0.1-2.0); Eosinophils # 0.4 Kmm3 (0.0-0.4); Eosinophils % 2.4 % (0.1-12.0); Hematocrit 38.6 % (37.0-47.0); Hemoglobin 12.5 g/dL (12.2-16.2); Immature Granulocytes # 0.16 10^3uL; Lymphocytes # 6.3 K/mm3 (0.7-4.5); Lymphocytes % 38.3 % (10-50); Mean Corpuscular HGB Conc 32.4 g/dL (31.8-35.4); Mean Corpuscular Hemoglobin 30.9 pg (27.0-31.2); Mean Corpuscular Volume 95.3 fl (81-99); Mean Platelet Volume 10.2 fl (7.4-10.4); Monocytes # 0.9 K/mm3 (0.1-1.0); Monocytes % 5.4 % (1.7-9.3); Neutrophils # 8.6 K/mm3 (1.8-7.8); Neutrophils % 52.4 % (37.0-80.0); Nucleated Red Blood Cells # 0 10^3/uL; Nucleated Red Blood Cells % 0 %; Platelet Count 281 K/mm3 (142-424); Red Blood Count 4.05 M/mm3 (4.20-5.40); Red Cell Distribution Width 15.3 % (11.5-17.5); Red Cell Distribution Width-SD 53.4 fL; White Blood Count 16.4 K/mm3 (4.8-10.8)
[2025-01-02 12:00] VITALS: BP 92/53; PULSE 74; O2SAT 98
[2025-01-02 12:04] LABS: Chloride 107 mmol/L (98-107); Sodium 138 mmol/L (136-145)
[2025-01-02 12:07] LABS: Alanine Aminotransferase 19 U/L (12-78); Albumin/Globulin Ratio 1.4 (1.1-1.8); Alkaline Phosphatase 53 U/L (38-126); Aspartate Amino Transferase 25 U/L (14-36); Blood Urea Nitrogen 5 mg/dl (7-17); Carbon Dioxide 28 mmol/L (22.0-30.0); Creatinine Clearance Estimated 86 mL/min (50-200); Estimated Glomerular Filt Rate 96 ml/min (>60); GFR (African American) 117 ML/MIN (>60); Globulin 2.8 g/dL (1.3-3.2); Total Protein,Serum 6.8 g/dl (6.3-8.2)
[2025-01-02] MEDS: ACETAMINOPHEN 500MG TAB 1000 MG PO (12:07)
[2025-01-02] MEDS: KETOROLAC 30MG/ML VIAL 15 MG IV (12:07)
[2025-01-02] MEDS: LACTATED RINGERS 1000ML 1,000 ML 999 ML IV (12:07)
[2025-01-02 12:08] LABS: Calcium 9.1 mg/dl (8.4-10.2); Glucose 89 mg/dl (74-100); Lipase 69 U/L (23-300); MANUAL DIFFERENTIAL MANUAL DIFFERENTIAL (MANUAL DIFF)
[2025-01-02 12:12] VITALS: BP 101/50; PULSE 65; O2SAT 96
[2025-01-02 12:12] LABS: Bilirubin,Total 0.1 mg/dl (0.2-1.3)
--- NOTE | 2025-01-02 12:21 | CT_ITS ---
FINAL REPORT TECHNIQUE: IV contrast enhanced exam This study was performed with techniques to keep radiation doses as low as reasonably achievable, (ALARA). Individualized dose reduction techniques using automated exposure control or adjustment of mA and/or kV according to the patient''s size were employed. CLINICAL HISTORY: gen lower abd pain FINDINGS: Abdomen: No acute density is seen within the lung bases. The gallbladder is absent. Solid abdominal organs are unremarkable. No bowel obstruction is present. There is no free air. No fluid collection is seen. There is no adenopathy. Pelvis: The appendix is normal. The uterus and ovaries are unremarkable. No bowel wall thickening is present. There is no free fluid. No pelvic mass is seen. IMPRESSION: No acute findings. Reviewed, Interpreted and Dictated by Ar Winters MD Transcribed by Asia Barnes Authenticated and [facility]
[2025-01-02 12:36] LABS: Eosinophils % 1 % (0-3); Lymphocytes % 42 % (10-50); Monocytes % 4 % (2-9); Neutrophils % 53 % (42-76); Platelet Estimate Normal; RBC Morphology Normal; Total Cells Counted 100
[2025-01-02] MEDS: SODIUM CHLORIDE 0.9% 10ML SYR (RAD ONLY) 10 ML IV (12:39)
[2025-01-02] MEDS: IOPAMIDOL-370 (76%);100ML BOTTLE 75 ML IV (12:39)
[2025-01-02 13:12] VITALS: BP 113/60; PULSE 59; RESP 18; TEMP 37.1; O2SAT 98
== END 2025-01-02 13:22 | disposition home or self-care (01) ==
PROVIDERS: Emergency Provider Emergency Medicine; PCP Nurse Practitioner Family
DX: R10.84 Generalized abdominal pain (principal); N39.0 Urinary tract infection, site not specified; D72.829 Elevated white blood cell count, unspecified; R00.1 Bradycardia, unspecified; F17.210 Nicotine dependence, cigarettes, uncomplicated
CPT/HCPCS: 74177; 80053; 81001; 83690; 85007; 85025; 85027; 87086; 93005; 96361; 96374; 99285; J1885; J7120; Q9967

== ENCOUNTER 2025-02-23 10:32 | Emergency (ER) | payer OTHER, SELFPAY ==
--- OUTSIDE RECORDS SUMMARY | 2025-01-24 08:07 | XMS_ITS | Encounter Summary ---
Author Organization Healthcare Address [address] [id number] Care Team Providers Care Drum Maker Name Role Phone Katina Scott MICHAEL Primary Care Provider [phone]- [phone] Encounter Details Date Type Department Care Team (Latest Contact Info) Description 01/24/2025 8:07 AM EDT - 01/24/2025 8:27 AM EDT Hospital Encounter [facility] [address] [phone] Acute mastitis of right breast Discharge Disposition: Home or Self Care Social History Tobacco Use Types Packs/Day Years Used Date Smoking Tobacco: Every Day Cigarettes 1 20 Started: 02/13/2005 Smokeless Tobacco: Never Alcohol Use Standard Drinks/Week Comments Not Currently 0 (1 standard drink = 0.6 oz pur e alcohol) PHQ-2 Answer Date Recorded Patient Health Questionnaire-2 Score 0 2024 Comments No Sex and Gender Information Value Date Recorded Sex Assigned at Not on file Legal Sex Female 11:34 AM EDT Gender Identity Not on file Sexual Orientation Not on file documented as of this encounter Medications at Time of Discharge amitriptyline (Elavil) 25 MG tablet 1 tablet (25 mg) 1 (one) time each day in the evening. 01/12/2024 buPROPion XL (Wellbutrin XL) 300 MG 24 hr tablet Take 1 tablet (300 mg) by mouth 1 (one) time each day. 01/19/2024 busPIRone (Buspar) 30 MG tablet Take 0.5 tablets (15 mg) by mouth 2 (two) times a day. lamoTRIgine (LaMICtal) 100 MG tablet Take 1 tablet (100 mg) by mouth 1 (one) time each day. 02/01/2024 sulfamethoxazole- trimethoprim (Bactrim DS) 800-160 MG tabletIndications :Chronic mastitis of right breast Take 1 tablet by mouth 2 times a day for 7 days. 14 tablet 01/25/2025 02/01/2025 documented as of this encounter Plan of Treatment Upcoming Encounters Date Type Department Care Team (Late st Contact Info) Description 02/27/2025 3:30 PM EDT Office Visit [facility] [address] [facility], [address]nd [place] [address] Mildred Goode MD [address] [facility] [address] [place] [address] 08/13/2025 9:50 AM EST Appointment [facility] [address] [address] [address] [facility] [address] [place] [address] 08/13/2025 10:30 AM EST Office Visit [address] [place] [address] Danielle De La Garza APRN [address] [place] [address] documented as of this encounter Procedures Procedure Name Priority Date/Time Associated Diagnosis Comments US BREAST LIMITED RIGHT Routine 01/24/2025 8:35 AM EDT Acute mastitis of right breast documented in this encounter Results * US Breast Limited Right (01/24/2025 8:35 AM EDT) Anatomical Region Laterality Modality Breast Right Ultrasound Impressions 01/24/2025 10:47 AM EDT Right Breast BI-RADS Code: BI-RADS 2, Benign finding. Left Breast BI-RADS Code: BI-RADS 1, Negative. RECOMMENDATIONS: Right Breast Recommendations: Breast Ultrasound 6 Months to determine resolution/decrease in size of finding.Clinical Correlation and Management Left Breast Recommendations: Clinical Correlation and Management. Consider breast MRI if symptoms persist or worsen and if clinically warranted. CRITICAL RESULT: No. COMMUNICATION: The results and recommendations were discussed with the patient and a printed lay language version of the imaging report was given to the patient at the time of the visit. The mammogram was read with the assistance of CAD and tomosynthesis. By electronically signing this report, I, the attending physician, attest that I have personally reviewed the images/data for the above examination(s) and agree with the final edited report. Drafted by Gerard Peres MD on 01/24/2025 9:45 AM Final report signed by Tip Jeronimo MD on 01/24/2025 10:47 AM Narrative 01/24/2025 10:47 AM EDT CLINICAL INDICATION: Concern for abscess of the right breast with history of intermittent green/yellow discharge. Follow-up of BI-RADS 3 finding in the right breast, previously biopsied at outside hospital in August 2023, pathology demonstrated acute on chronic mastitis involving lactiferous ducts. Negative for atypia or malignancy. Additional concern of nonspontaneous left clear/bloody nipple discharge upon expression x3 days. History of bilateral nipple piercings. TECHNIQUE: Bilateral diagnostic mammogram was performed. Computer assisted detection was used in the interpretation of this study. Tomosynthesis was used in the interpretation of this study. Multiplanar, rossi scale directed ultrasound of bilateral breasts with limited Doppler vascular ultrasound was performed. Elastography was not performed. COMPARISON: Mammograms,07/22/2023, 07/27/2019, Ultrasound, 2024, 08/25/2023, 08/02/2023, 01/21/2023. Bilateral Breast Density: There are scattered areas of fibroglandular density. FINDINGS: Mammogram Findings: Right: Redemonstrated is the 22 mm mass, in the retroareolar region at 3:00, more conspicuous on the current mammogram. Previously biopsied in August 2023, pathology demonstrated acute on chronic mastitis. Tissue marker was not placed. Follow-up ultrasound was performed for further evaluation. Left: No suspicious masses, calcifications, or architectural distortion. Specifically, no suspicious findings in the left retroareolar region. Ultrasound was performed for further evaluation. Ultrasound Findings: Right: Follow-up right breast ultrasound was performed at 3:00, 1 cm from the nipple redemonstrating the predominantly hypoechoic mass with an anechoic component, mass measures 14 x 18 x 12 mm, previously 19 x 22 x 10 mm on 2024. The anechoic component demonstrates internal mobile debris. There is minimal peripheral vascularity. This corresponds to the previously biopsied mass as well as the right mammographic finding. Clinical management is recommended. BI-RADS 2 Left: Targeted left breast ultrasound was performed in the subareolar region and demonstrated no suspicious sonographic finding or finding to explain patient's symptoms. This correlates with the mammogram. BI-RADS 1 Procedure Note Tip Jeronimo MD - 01/24/2025 CLINICAL INDICATION: Concern for abscess of the right breast with history of intermittentgreen/yellow discharge. Follow-up of BI-RADS 3 finding in the rightbreast, previously biopsied at outside hospital in August 2023, pathologydemonstrated acute on chronic mastitis involving lactiferous ducts.Negative for atypia or malignancy. Additional concern of nonspontaneousleft clear/bloody nipple discharge upon expression x3 days. History ofbilateral nipple piercings. TECHNIQUE: Bilateral diagnostic mammogram was performed. Computer assisted detection was used in the interpretation of this study.Tomosynthesis was used in the interpretation of this study. Multiplanar, rossi scale directed ultrasound of bilateral breasts withlimited Doppler vascular ultrasound was performed. Elastography was notperformed. COMPARISON: Mammograms,07/22/2023, 07/27/2019, Ultrasound, 2024, 08/25/2023, 08/02/2023, 01/21/2023. Bilateral Breast Density: There are scattered areas of fibroglandulardensity. FINDINGS: Mammogram Findings: Right: Redemonstrated is the 22 mm mass, in the retroareolar region at3:00, more conspicuous on the current mammogram. Previously biopsied inJanuary 2023, pathology demonstrated acute on chronic mastitis. Tissuemarker was not placed. Follow-up ultrasound was performed for further evaluation. Left: No suspicious masses, calcifications, or architectural distortion.Specifically, no suspicious findings in the left retroareolar region.Ultrasound was performed for further evaluation. Ultrasound Findings: Right: Follow-up right breast ultrasound was performed at 3:00, 1 cm fromthe nipple redemonstrating the predominantly hypoechoic mass with ananechoic component, mass measures 14 x 18 x 12 mm, previously 19 x 22 x 10mm on 2024. The anechoic component demonstrates internal mobiledebris. There is minimal peripheral vascularity. This corresponds to thepreviously biopsied mass as well as the right mammographic finding.Clinical management is recommended. BI-RADS 2 Left: Targeted left breast ultrasound was performed in the subareolarregion and demonstrated no suspicious sonographic finding or finding toexplain patient's symptoms. This correlates with the mammogram. BI-RADS1 IMPRESSION: Right Breast BI-RADS Code: BI-RADS 2, Benign finding. Left Breast BI-RADS Code: BI-RADS 1, Negative. RECOMMENDATIONS: Right Breast Recommendations: Breast Ultrasound 6 Months to determineresolution/decrease in size of finding.Clinical Correlation andManagement Left Breast Recommendations: Clinical Correlation and Management. Considerbreast MRI if symptoms persist or worsen and if clinically warranted. CRITICAL RESULT: No. COMMUNICATION: The results and recommendations were discussed with the patient and aprinted lay language version of the imaging report was given to thepatient at the time of the visit. The mammogram was read with theassistance of CAD and tomosynthesis. By electronically signing this report, I, the attending physician, batsheva I have personally reviewed the images/data for the aboveexamination(s) and agree with the final edited report. Drafted by Gerard Peres MD on 01/24/2025 9:45 AM Final report signed by Tip Jeronimo MD on 01/24/2025 10:47 AM us Kalee Santa APRN IMG BI PROCEDURES Final Re sult documented in this encounter Visit Diagnoses Diagnosis Acute mastitis of right breast documented in this encounter Additional Health Concerns Assessment Noted Time A fall risk assessment has been complete d for the patient 01/24/2025 10:55 AM EDT A Body Mass Index follow-up plan has been documented for the patient 01/25/2025 12:22 PM EDT documented as of this encounter Care Teams Drum Maker Relationship Specialty Start Date End Date Katina Scott APRN [address] [place] [address] PCP - General 02/14/24 documented as of this encounter
--- OUTSIDE RECORDS SUMMARY | 2025-01-24 08:28 | XMS_ITS | Encounter Summary ---
Author Organization Healthcare Address [address] [id number] Care Team Providers Care Leather Belt Shaper Name Role Phone Katina Scott MICHAEL Primary Care Provider +1- [phone] Encounter Details Date Type Department Care Team (Latest Contact Info) Description 01/24/2025 8:28 AM EDT - 01/24/2025 8:48 AM EDT Hospital Encounter [facility] Breast [facility] [address] [phone] Acute mastitis of right breast Discharge Disposition: [...] PM EDT Office Visit [facility] [address] [facility], [address]nd [place] [address] Mildred Goode MD [address] [facility] [address] [place] [address] 08/13/2025 9:50 AM EST Appointment [facility] [address] [address] [address] [facility] [address] [place] [address] 08/13/2025 10:30 AM EST Office Visit [address] [place] [address] Danielle De La Garza APRN [address] [place] [address] documented as of this encounter Procedures Procedure Name Priority Date/Time Associated Diagnosis Comments US BREAST LIMITED LEFT Routine 01/24/2025 8:47 AM EDT Acute mastitis of right breast documented in this encounter Results * US Breast Limited Left (01/24/2025 8:47 AM EDT) Anatomical Region Laterality Modality Breast Left Ultrasound Impressions 01/24/2025 10:47 AM EDT Right [...] documented as of this encounter Care Teams Leather Belt Shaper Relationship Specialty Start Date End Date Katina Scott APRN [address] [place] [address] PCP - General 02/14/24 documented as of this encounter
--- OUTSIDE RECORDS SUMMARY | 2025-01-24 08:49 | XMS_ITS | Encounter Summary ---
Author Organization Healthcare Address [address] [id number] Care Team Providers Care Chronometer Assembler And Adjuster Name Role Phone Katina Scott MICHAEL Primary Care Provider +1- [phone] Encounter Details Date Type Department Care Team (Latest Contact Info) Description 01/24/2025 8:49 AM EDT - 01/24/2025 11:59 PM EDT Hospital Encounter [facility] Breast Care Center [facility] [address] [phone] Acute mastitis of right breast Discharge Disposition: [...] PM EDT Office Visit [facility] [address] [facility], [address] [place] [address] Mildred Goode MD [address] [facility] [address] [place] [address] 08/13/2025 9:50 AM EST Appointment [facility] Center [address] [address] [address] [facility] [address] [place] [address] 08/13/2025 10:30 AM EST Office Visit [address], [address] [place] [address] Danielle De La Garza APRN [address] [place] [address] documented as of this encounter Procedures Procedure Name Priority Date/Time Associated Diagnosis Comments MAMMOGRAPHY BREAST DIAGNOSTIC TOMOSYNTHESIS BILATERAL Routine 01/24/2025 9:18 AM EDT Acute mastitis of right breast documented in this encounter Results * Mammography Breast Diagnostic Tomosynthesis Bilateral (01/24/2025 9:18 AM EDT) Anatomical Region Laterality Modality Breast Bilateral Mammography Impressions 01/24/2025 10:47 AM EDT Right Breast [...] conspicuous on the current mammogram. Previously biopsied inJan2023, pathology demonstrated acute on chronic mastitis. Tissuemarker [...] with the final edited report. Drafted by Geradr Peres MD on 01/24/2025 9:45 AM Final [...] documented as of this encounter Care Teams Chronometer Assembler And Adjuster Relationship Specialty Start Date End Date Katina Scott APRN [address] [id number] PCP - General 02/14/24 documented as of this encounter
--- OUTSIDE RECORDS SUMMARY | 2025-01-24 09:30 | XMS_ITS | Encounter Summary ---
Author Organization Healthcare Address [address] [id number] Care Team Providers Care Die Welder Name Role Phone Katina Scott APRN Primary Care Provider [phone] Encounter Details Date Type Department Care Team (Late st Contact Info) Description 01/24/2025 9:30 AM EDT Office Visit [facility] [address] [place] [address] Gisel Villalba APRN [address] [place] [address] Chronic mastitis of right breast (Primary Dx) Social History Tobacco Use Types Packs/Day Years Used Date Smoking Tobacco: Every Day Cigarettes 1 20 Started: 02/13/2005 Smokeless Tobacco: Never Tobacco Cessation:Ready to Q uit: Not Asked; Counseling Given: Not Answered Alcohol Use Standard Drinks/Week Comments Not Currently 0 (1 standard drink = 0.6 oz pur e alcohol) PHQ-2 Answer Date Recorded Patient Health Questionnaire-2 Score 0 2024 Comments No Sex and Gender Information Value Date Recorded Sex Assigned at Not on file Legal Sex Female 11:34 AM EDT Gender Identity Not on file Sexual Orientation Not on file documented as of this encounter Last Filed Vital Signs Vital Sign Reading Time Taken Comments Blood Pressure 100/74 01/24/2025 10:55 AM EDT Pulse 62 01/24/2025 10:55 AM EDT Temperature 36.7 C (98 F) 01/24/2025 10:55 AM EDT Respiratory Rate 17 01/24/2025 10:55 AM EDT Oxygen Saturation 100% 01/24/2025 10:55 AM EDT Inhaled Oxygen Concentration - - Weight - - Height - - Body Mass Index - - documented in this encounter Miscellaneous Notes * Progress Notes - Gisel Villalba APRN - 01/24/2025 9:30 AM EDT Images from the original note were not included. Subjective DOS: 01/24/2025 CC: Patient is seen in clinic for follow up. HPI Patient is a 33 year old female with PMH of tobacco use, bilateral nipple piercing x 2, bilateral nipple left breast abscess s/p incision and drainage in 10/2019, right subareolar abscess s/p incisionand drainage in 01/2023 (cultures positive for Streptococcus anginosus and Streptococcus constellatus), bipolar I disorder, anxiety/depression. She has no personal history of breast cancer. She has nofamily history of breast cancer. Other family history of cancer include: paternal grandmother was diagnosed with cervical and ovarian cancer. Patient states she had bilateral nipple piercings a few years ago and developed a left breast abscess, which prompted her to remove her nipple piercings. Once healed, she repierced her bilateral nipples in 2022 and removed the piercings in 01/2023 with new right breast abscess diagnosis. Patient states since her right breast incision and drainage in 01/2023, her nipple was inverted with milky discharge. She denies fever, redness, trauma to site. Endorses recent changes in medications. Denies headaches, nausea, vomiting. On 07/22/2023, a right diagnostic mammogram revealed a questionable 1 cm mass. On 08/02/2023, a right breast ultrasound revealed in the right breast, 03:00 position, retroareolar mass, that may represent a papillary lesion. A right breast biopsy on 08/25/2023 revealed acute and chronic mastitis involving lactiferous ducts; negative for atypia or malignancy. A right breast ultrasound on 2024 revealed in the subareolar position at 3:00 position, 1cfn, 2.2cm mass. Patient completed Bactrim x 14 days with minimal improvement. Denies fever, headaches, nausea, vomiting. On 03/13/2024, patient noted significant improvement after 14 day course of Keflex and Flagyl. Patient endorses bloody discharge and is unsure when it started. Denies fever, headaches, nausea, vomiting. Denies trauma to the breast, redness, skin changes, and pain. 01/24/2025: Patient presents today with persistent white/ green thick nipple discharge. She denies any redness, skin changes, fevers, or chills. She does endorse fatigue and headaches. The discharge is spontaneous in nature. She does endorse tenderness to that right breast. Patient notes no other concerns today. TREATMENT HISTORY: -DIAGNOSIS: Right breast nipple discharge -TREATMENT: 2024: Bactrim x 14 days 02/28/2024: Keflex and Flagyl x 14 days 03/13/2024: Doxycycline x 14 days 01/24/2025: Bactrim x 10 days -IMAGING: I personally and independently reviewed the patients imaging which showed: See HPI PMHx: Past Medical History: Diagnosis Date Borderline personality disorder (CMS/HCC) Depression Obesity PSHx: Past Surgical History: Procedure Laterality Date BREAST BIOPSY Right 2023 outside facility-acute and chronic mastitis BREAST SURGERY Bilateral incision and drainage CHOLECYSTECTOMY ALARM MECHANIC/Breast Hx: -Menarche: 14 -LMP: 01/2024 -OCP hx: yes, 1 year? -G1@: 22 - -Breast feeding (m): yes, 6 months -Infertility treatments: no -Menopause: no -HRT: no -Hyst/Ooph: no -Previous Bx: yes FHx: No family history on file. SHx: Social History Tobacco Use Smoking status: Every Day Current packs/day: 1.00 Average packs/day: 1 pack/day for 19.9 years (19.9 ttl pk-yrs) Types: Cigarettes Start date: 02/13/2005 Smokeless tobacco: Never Vaping Use Vaping status: Never Used Substance Use Topics Alcohol use: Not Currently Drug use: Never Employer: No address on file. Travel History Relevant International Travel History: Travel Screening Question Response Have you been in contact with someone who was sick? No / Unsure Do you have any of the following new or worsening symptoms? None of these Have you traveled internationally or domestically in the last month? No Travel History Travel since 01/15/24 No documented travel since 01/15/24 Relevant Domestic Travel History: N/A Immunizations Reviewed VACCINE / DOSE DATE Flu Tetanus 04/15/2021 Pneumovax Shingles Allergies Patient has no known allergies. Medications Current Outpatient Medications Medication Sig Dispense Refill amitriptyline (Elavil) 25 MG tablet 1 tablet (25 mg) 1 (one) time each day in the evening. buPROPion XL (Wellbutrin XL) 300 MG 24 hr tablet Take 1 tablet (300 mg) by mouth 1 (one) time each day. busPIRone (Buspar) 30 MG tablet Take 0.5 tablets (15 mg) by mouth 2 (two) times a day. lamoTRIgine (LaMICtal) 100 MG tablet Take 1 tablet (100 mg) by mouth 1 (one) time each day. No current facility-administered medications for this visit. Review of Systems Constitutional: Negative. Negative for fatigue. HENT: Negative. Respiratory: Negative. Negative for shortness of breath. Cardiovascular: Negative. Gastrointestinal: Negative. Negative for diarrhea, nausea and vomiting. Genitourinary: Negative. Musculoskeletal: Negative. Skin: Negative. Neurological: Negative. Negative for headaches. Psychiatric/Behavioral: Negative. Objective PE: There were no vitals taken for this visit. Physical Exam Constitutional: Appearance: She is obese. HENT: Head: Normocephalic. Right Ear: External ear normal. Left Ear: External ear normal. Nose: Nose normal. Mouth/Throat: Mouth: Mucous membranes are moist. Cardiovascular: Rate and Rhythm: Normal rate. Pulses: Normal pulses. Pulmonary: Effort: Pulmonary effort is normal. Chest: Comments: Breasts are examined in upright and supine position. Grade 3 ptosis. Bilateral fibrocystic changes noted. Bilateral nipples without discharge, left nipple slightly inverted (improving). Palpable resolving ill-defined right subareolar fullness. No skin changes on either breast. Resolved ecchymosis noted on right lower inner quadrant. Abdominal: Palpations: Abdomen is soft. Musculoskeletal: General: Normal range of motion. Cervical back: Normal range of motion. Lymphadenopathy: Upper Body: Right upper body: No supraclavicular or axillary adenopathy. Left upper body: No supraclavicular or axillary adenopathy. Skin: General: Skin is warm. Neurological: Mental Status: She is alert and oriented to person, place, and time. Psychiatric: Mood and Affect: Mood normal. Behavior: Behavior normal. Thought Content: Thought content normal. Judgment: Judgment normal. Radiology (reviewed by MD): On 07/22/2023, a right diagnostic mammogram revealed a questionable 1 cm mass. On 08/02/2023, a right breast ultrasound revealed in the right breast, 03:00 position, retroareolar mass, that may represent a papillary lesion. Pathology (reviewed by MD): A right breast biopsy on 08/25/2023 revealed acute and chronic mastitis involving lactiferous ducts;negative for atypia or malignancy. Assessment/Plan Patient is a 34 y.o. female presenting with right breast nipple discharge. -Patient endorses right breast nipple discharge. We discussed nipple discharge is reproducible on examination and mass is resolving, soft and ill-defined. Culture of discharge obtained. Discussed to course of Bactrim. Discussed Us results which showed hypoechoic mass with an anechoic component, mass measures 14 x 18 x 12 mm, previously 19 x 22 x 10 mm on 2024. The anechoic component demonstrates internal mobile debris. Patient interested in seeing one of our surgeons for further evaluation.Will schedule that appointment. PLAN: Chronic mastitis Bactrim Set up to see surgeon As always, she is encouraged to contact our office at the number provided for any additional questions or concerns. She voiced understanding of the plan, asked appropriate questions, and all questions were answered to her satisfaction today. 45 minutes was spent on this encounter; including preparing to see the patient, which involved review/interpretation of diagnostics and reports; obtaining and/or reviewing separately obtained history; performing appropriate physical exam; ordering/scheduling medications, tests or procedures; communicating findings and counseling/educating the patient, family and/or caregiver; documentation in EMR; and care coordination. Her chronic comorbid conditions that impact our treatment planning include: Tobacco use documented in this encounter Plan of Treatment Upcoming Encounters Date Type Department Care Team ([facility] st Contact Info) Description 02/27/2025 3:30 PM EDT Office Visit [facility] [address] [place] [address] Mildred Goode MD [address] [facility] [address] [place] [address] 08/13/2025 9:50 AM EST Appointment [facility] [address] [place] [address] 08/13/2025 10:30 AM EST Office Visit [facility] [address] [place] [address] Danielle De La Garza, SCREEN TENDER [address] [place] [address] Scheduled Orders Name Type Priority Associated Diagnoses Orde r Schedule US Breast Limited Right Imaging Routine Chronic mastitis of right breast Expected: 07/26/2025 (Approximate), Expires: 07/26/2026 documented as of this encounter Procedures Procedure Name Priority Date/Time Associated Diagnosis Comments WOUND CULTURE AND GRAM STAIN Routine 01/24/2025 11:53 AM EDT Chronic mastitis of right breast documented in this encounter Results * (ABNORMAL) Wound Culture and Gram Stain (01/24/2025 11:53 AM EDT) CULTURE READING WOUND Moderate Growth 01/27/2025 7:16 AM EDT [facility] CULTURE READING WOUND Schaalia turicensis (formerly known as Actinomyces turicensis)(A) 01/27/2025 7:16 AM EDT [facility] Comment: This isolate has been identified using the FDA Approved [employer] [place] System The organism value for this result has been updated. These results have been appended to the previously preliminary verified report. This is a corrected result. Previous organism was Gram positive pilo on 01/26/2025 at 0749 EDT. Gram Stain Result No polymorphonuclear leukocytes seen(A) 01/27/2025 7:16 AM EDT [facility] Gram Stain Result Numerous Gram positive cocci in pairs and chains(A) 01/27/2025 7:16 AM EDT [facility] Gram Stain Result Moderate Gram negative rods(A) 01/27/2025 7:16 AM EDT [facility] Swab Skin structure / Unknown Non-blood Collection / Unknown 01/24/2025 11:53 AM EDT 01/24/2025 12:11 PM EDT Gisel Villalba APRN LAB MICROBIOLOGY - GENER AL ORDERABLES Final Result [facility] [address] [place] [address] documented in this encounter Visit Diagnoses Diagnosis Chronic mastitis of right breast- Primary documented in this encounter Additional Health Concerns Assessment Noted Time A fall risk assessment has been complete d for the patient 01/24/2025 10:55 AM EDT A Body Mass Index follow-up plan has been documented for the patient 01/25/2025 12:22 PM EDT documented as of this encounter Care Teams Die Welder Relationship Specialty Start Date End Date Katina Scott APRN [address] [phone] PCP - General 02/14/24 documented as of this encounter
[2025-02-23 10:39] VITALS: BP 126/64; PULSE 53; RESP 19; TEMP 36.6; O2SAT 100; BMI 47.2
[2025-02-23 10:45] VITALS: PULSE 59; RESP 17; O2SAT 100
--- OUTSIDE RECORDS SUMMARY | 2025-02-23 10:45 | XMS_ITS | Continuity of Care Document ---
Author Organization [facility] Family [facility]- Dept [address] [place] [address] Care Team Providers Care Enterer Name Role Phone ANGELA SOCTT Primary Care Provider [phone] Assessment No assessment recorded. Plan of Treatment Reminders Order Date Submit Date Provider Last Modified By Organization Details Last Modified Time Details Appointments None recorded. Lab vitamin B12 + folate, serum or blood [address] [facility], [address] [place] [address] [place], [address], 5 07:50:04 lipid panel, serum [address] [facility], [address] [place] [address] [place], [address], 5 07:50:04 glycohemog lobin, total, blood [address] [facility], [address] [place] [address] [place], [address], 5 07:50:04 CBC w/ auto diff [address] [facility], [address] [place] [address] [place], [address], 5 07:50:04 CMP, serum or plasma [address] [facility], [address] [place] [address] [place], [address], 07:50:04 TSH + free T4, serum [address] [facility], [address] [place] [address] [place], [address], 5 07:50:04 Referral breast surgery referral 2024 025 jennifer Daniel MD, [address] [place] [address], [address], 09:39:14 Procedures None recorded. Surgeries None recorded. Imaging None recorded. Medication Orders None recorded. Patient TargetsNo targets recorded. Patient Instructions Encounter Date Encounter Id Patient Instructions Last Modified By Organization Details Last Modified Time 12/27/2024 [id number] Labs drawn by [facility] label press operator [email or web address] Not available 12/27/2024 11:33:29 Parts of this document were prepared using voice recognition software and may contain unrecognized dictation errors and word substitutions commonly found with electronic grazing aide. Attempts have been made to correct errors during dictation, but some errors may remain. It should not be considered a word for word legal document, but is a record created to help myself and others care for the patient. I reserve the right to interpret this document as I believe it was intended and not necessarily the way it was transcribed. [email or web address] Not available 12/27/2024 11:33:32 Reason for Referral Breast Surgery Referral for Discharge from right nipple Referring Physician: [facility], Encounter Date: 12/27/2024 Results Created Date Observation Date Name Description Value Unit Range Abnormal Flag Note LastModifiedBy Organization Detail LastModifiedTime 01/03/2001/02/2025 imagi ng inter preta tion No observ ation record ed. [email or web address] [facility] [address], [place], [address], 01/03/2025 08:26:08 01/04/20 25 01/02/2025 trans -thor acic echoc ardio gram (TTE) (PROC ) No observ ation record ed. [email or web address] [facility] [address], [place], [place], [address], 01/03/2025 14:11:17 Result Notes None recorded. Problems Name Problem SNOMED Code Status Onset Date Resolution Date Notes Provider Name and Address Organization Details Recorded Time Dysmenorrhe a 818735077 Active 2023 Angela Scott NP [address], [address], [place], [address], [place] - [facility] - [place] & [place] 4 12:15:44 Irregular periods 51155855 Active 2023 Angela Scott NP [address], [address], [place], [address], [place] [facility] [place] & [place] 4 12:16:19 Leukocytosi s 431429271 Active 2021 Angela Scott NP [address], [address], [place], [address], [place] [facility] [place] & [place] 2 13:49:45 Hypoglycemi a 254837414 Active 2021 Angela Scott NP [address], [address], [place], [address], [place] [facility] & [place] 2 13:49:47 Morbid obesity 709553888 Active 2022 Angela Scott NP [address], [address], [place], [address], [place] [facility] [place] & [place] 3 12:03:27 Vitamin B12 deficiency (non anemic) 03260743 Active 2022 Angela Scott NP [address], [address], [place], [address], [place] [facility] & [place] 3 12:03:53 Fatigue 83642164 Active 2022 Angela Scott NP [address], [address], [place], [address], [place] [facility] [place] & [place] 5 11:29:42 Bipolar disorder 10020083 Active 2022 Angela Scott NP [address], [address], [place], [address], [place] [facility] [place] & [place] 3 12:05:15 Generalized anxiety disorder 56900274 Active 2022 Angela Scott NP [address], [address], [place], [address], [place] [facility] [place] & [place] 3 12:05:18 Attention deficit hyperactivi ty disorder, predominant ly inattentive type 90353556 Active 2022 Angela Scott NP [address], [address], [place], [address], [place] [facility] [place] & [place] 3 13:23:58 Abscess of breast 85086940 Active 2022 Angela Scott NP [address], [address], [place], [address], [place] [facility] [place] [facility] & [place] 3 11:27:43 Peripheral edema 660557927 Active 2022 Angela Scott NP [address], [address], [place], [address], [place] [facility] [place] & [place] 3 10:18:55 Dyspnea on exertion 14429875 Active 2022 Angela Scott NP [address], [address], [place], [address], [place] [facility] [place] & [place] 3 10:21:19 Mass of right breast 8773828166517 9106 Active 2022 Angela Scott NP [address], [address], [place], [address], [place] [facility] [place] & [place] 3 10:21:36 Discharge from right nipple 1294816177387 9101 Active 2022 Angela Scott NP [address], [address], [place], [address], [place] [facility] [place] & [place] 3 10:49:55 Prediabetes 212322699 Active 2022 Angela Scott NP [address], [address], [place], [address], [place] [facility] [place] & [place] 3 10:56:46 Mammography abnormal 065535658 Active 2022 Angela Scott NP [address], [address], [place], [address], [place] [facility] [place] [facility] & [place] 3 09:51:00 Tobacco dependence caused by cigarettes 9078888071859 9107 Active 2023 Shelley Hong MD [address] [facility], [address], [place], [address], [place] [facility] [place] [facility] & [place] 4 10:36:39 Dark yellow urine 850961196 Active 2023 Angela Scott NP [address] [facility], [address], [place], [address], [place] [facility] [place] [facility] & [place] 4 10:13:44 Problem Notes None recorded. Procedures Surgical History Date Name Laterality Status Provider Name and Address Organization Details Recorded Time 07/22/20 Most Recent Mammogram completed Lucreciacharley Price [place] [facility] [place] & [place] 09/23/2023 10:59:16 Breast Biopsy completed Lucreciaeste Albert [place] [facility] & [place] 09/23/2023 10:59:23 cholecystectomy completed Graisrael Rodriguesl [place] - [facility] - [place] & [place] 05/25/2022 10:18:47 procedure on fallopian tube completed Gracemarialuisa Yazell [place] - [facility] - [place] & [place] 05/25/2022 10:19:58 Imaging Results None recorded. Procedure Notes None recorded. Medical Equipment None Reported. Allergies No known drug allergies Medications Name Sig Start Date Stop Date Status Note LastModified by Organization Details LastModified Time fluoxetine 40 mg capsule TAKE 1 CAPSULE BY MOUTH EVERY DAY FOR 90 DAYS 10/05 completed Not Available Not Available Not Available methocarbam ol 500 mg tablet TAKE 1 TABLET BY MOUTH EVERY 8 HOURS NEEDED FOR MUSCLE SPASM FOR 10 DAYS 04/22 completed Not Available Not Available Not Available lamotrigine 150 mg tablet TAKE 1 TABLET BY MOUTH EVERY DAY active Not Available Not Available No t Available promethazin e-DM 6.25 mg-15 mg/5 mL oral syrup TAKE 5 ML BY MOUTH NEEDED EVERY 6 HOURS FOR 10 DAYS 08/26 completed Not Available Not Available Not Available prednisone 10 mg tablet 08/26 completed Not Available Not Available Not Available clindamycin HCl 300 mg capsule TAKE 1 CAPSULE BY MOUTH EVERY 8 HOURS FOR 10 DAYS 01/04 completed Not Available Not Available Not Available azithromyci n 250 mg tablet 07/16 completed Not Available Not Available Not Available fluconazole 150 mg tablet TAKE 1 TABLET BY MOUTH FOR 1 DAY 04/22 completed Not Available Not Available Not Available hydrocodone 5 mg-acetamin ophen 325 mg tablet TAKE 1 TAB EVERY 8 HOURS NEEDED NEEDED FOR MODERATE TO SEVERE PAIN FOR 3 DAYS 02/04 completed Not Available Not Available Not Available phenazopyri dine 200 mg tablet TAKE 1 TABLET BY MOUTH EVERY 8 HOURS NEEDED FOR PAIN active Not Available Not Available No t Available cyanocobala min (vit B-12) 1,000 mcg tablet Take 1 tablet every day by oral route for 30 days. 2024 active Not Available Not Available Not Avai lable potassium chloride ER 10 mEq tablet,exte nded release Take 1 tablet every other day by oral route for 30 days. 01/25 completed Not Available Not Available Not Available metronidazo le 500 mg tablet TAKE 1 TABLET (500 MG) BY MOUTH 3 TIMES A DAY FOR 14 DAYS 12/27 completed Not Available Not Available Not Available folic acid 400 mcg tablet Take 1 tablet every day by oral route for 30 days. 2024 active Not Available Not Available Not Avai lable sulfamethox azole 800 mg-trimetho prim 160 mg tablet TAKE 1 TABLET BY MOUTH TWICE A DAY FOR 2 WEEKS 12/27 completed Not Available Not Available Not Available doxycycline monohydrate 100 mg tablet 1 TABLET TWICE A DAY X 14 DAY WITH A FULL GLASS OF WATER & DO NOT LIE DOWN FOR AT LEAST 30 MIN AFTER 12/27 completed Not Available Not Available Not Available lamotrigine 25 mg tablet TAKE 1 TABLET BY MOUTH ONCE DAILY FOR 14 DAYS, THEN TAKE 2 TABLETS DAILY THEREAFTE R 12/27 completed Not Available Not Available Not Available ketorolac 10 mg tablet 02/04 completed Not Available Not Available Not Available amoxicillin 875 mg tablet TAKE 1 TABLET BY MOUTH EVERY 12 HOURS 07/16 completed Not Available Not Available Not Available amitriptyli ne 25 mg tablet TAKE 1 TABLET BY MOUTH EVERY DAY IN THE EVENING FOR 90 DAYS 2024 active Not Available Not Available Not Avai lable amitriptyli ne 10 mg tablet 04/22 completed Not Available Not Available Not Available benzonatate 100 mg capsule TAKE 1 CAPSULE BY MOUTH THREE TIMES DAILY NEEDED FOR COUGH 07/16 completed Not Available Not Available Not Available cephalexin 500 mg capsule TAKE 1 CAPSULE (500 MG) BY MOUTH 4 (FOUR) TIMES A DAY FOR 14 DAYS. 12/27 completed Not Available Not Available Not Available cyanocobala min (vit B-12) 1,000 mcg/mL injection solution Give 1 mL intramusc ular once a week x 4 weeks 02/04 completed Not Available Not Available Not Available buspirone 10 mg tablet TAKE 1 TABLET BY MOUTH EVERY EVENING FOR ANXIETY 2024 active Not Available Not Available Not Avai lable hydrochloro thiazide 25 mg tablet TAKE 1 TABLET BY MOUTH EVERY DAY 07/16 completed Not Available Not Available Not Available furosemide 20 mg tablet TAKE 1 TABLET BY MOUTH EVERY OTHER DAY 01/25 completed Not Available Not Available Not Available levofloxaci n 500 mg tablet Take 1 tablet every 24 hours by oral route with meal(s) for 7 days. 12/27 completed Not Available Not Available Not Available methylpredn isolone 4 mg tablets in a dose pack TAKE DIRECTED ON PACKAGE 10/05 completed Not Available Not Available Not Available ondansetron 4 mg disintegrat ing tablet DISSOLVE 1 TABLET IN MOUTH EVERY 8 HOURS NEEDED FOR NAUSEA AND VOMITING FOR 4 DAYS active Not Available Not Available No t Available cefdinir 300 mg capsule 02/04 completed Not Available Not Available Not Available lamotrigine 100 mg tablet TAKE 1 TABLET EVERY DAY 12/27 completed Not Available Not Available Not Available amoxicillin 875 mg-snehal torres clavulanate 125 mg tablet TAKE 1 TABLET BY MOUTH EVERY 12 HOURS 10/05 completed Not Available Not Available Not Available atomoxetine 40 mg capsule TAKE 1 CAPSULE BY MOUTH ONCE DAILY IN THE MORNING 05/25 completed Not Available Not Available Not Available atomoxetine 60 mg capsule TAKE 1 CAPSULE BY MOUTH EVERY DAY FOR 90 DAYS 04/22 completed Not Available Not Available Not Available ciprofloxac in 0.3 %-dexametha sone 0.1 % ear drops,suspe nsion INSTILL 2 DROPS INTO LEFT EAR TWICE A DAY FOR 7 DAYS 10/05 completed Not Available Not Available Not Available bupropion HCl XL 300 mg 24 hr tablet, extended release TAKE 1 TABLET BY MOUTH EVERY DAY active Not Available Not Available No t Available bupropion HCl XL 150 mg 24 hr tablet, extended release Take 1 tablet every day by oral route for 90 days. 02/04 completed Not Available Not Available Not Available nitrofurant oin monohydrate /macrocryst als 100 mg capsule TAKE 1 CAPSULE BY MOUTH TWICE DAILY WITH FOOD FOR 7 DAYS active Not Available Not Available No t Available lamotrigine ER 100 mg tablet,exte nded release 24 hr TAKE 1 TABLET BY MOUTH EVERY DAY 12/27 completed Not Available Not Available Not Available Mucus Relief ER 600 mg tablet, extended release TAKE 1 TO 2 TABLETS BY MOUTH TWICE A DAY NEEDED FOR CONGESTIO N 10/05 completed Not Available Not Available Not Available Vraylar 3 mg capsule TAKE 1 CAPSULE BY MOUTH EVERY DAY 12/27 completed Not Available Not Available Not Available [facility] COVID-19 Antigen Rapid Home Test kit 10/05 completed Not Available Not Available Not Available Vitals Date Recorded Body height Body mass index (BMI) Body weight Body temperature Oxygen saturation Oxygen saturation in Arterial blood by Pulse oximetry Heart rate Systolic And Diastolic Provider Name and Address Organization Details Last Updated DateTime 5 154.94 cm 47.3 kg/m2 945478. 81 g 96.9 [degF] 97 % 97 % 94 /min 120/70 mm[Hg] payton MARSHALL [facility] - [place] & [place] 5 11:06:55 Social History Question Answer Notes LastModified by Organizat ion Details LastModified Time Tobacco Smoking Status Current Every Day Smoker Luz chapa, [place] CAMPBELL [facility] & [place] 05/25/2022 10:16:35 If You Are , What Was Your Level Of Alcohol Consumption Prior To ? None Information not available 05/25/2022 What Is Your Level Of Caffeine Consumption? Heavy Information not available 05/25/2022 At What Age Did You Start Smoking Tobacco? 15 Information not available 05/25/2022 How Much Tobacco Do You Smoke? 1 PPD Information not available 05/25/2022 Sex: Unknown Functional Status Question Answer Note LastModified by Organizat ion Details LastModified Time Do you use any illicit or recreational drugs? No Information not available 05/25/2022 Do you or have you ever used any other forms of tobacco or nicotine? No Information not available 05/25/2022 What is your level of alcohol consumption? None Information not available 05/25/2022 Mental Status None recorded. Family History Relationship Description Onset Age of this Age Resolved Age Notes LastModified by Organization Details LastModified Time Mother Cirrhosis of liver [email or web address] Not available 2022 00:43:21 Medical History Condition Response Obesity Y Anxiety/Depression Y Gynecological History Statement/Question Response Most Recent Mammogram 07/22/2023 Obstetrics History GPAL:G 0 P 0 0 0 0 Immunizations Vaccine Type Date Status Note Provider Nam e and Address Organization Details Recorded Time Tdap 04/15/2021 completed payton gregory [place] chapa [facility] & [place] 01/04/2023 11:34:35 Past Encounters Encounter ID Performer Location Encounter Start Date Encounter Closed Date Diagnosis/Indication Diagnosis SNOMED-CT Code Diagnosis ICD10 Code Diagnosis Note [id number] Angela Scott NP [facility] Family Medicine- Dept 8[address] [facility] [place] [address] 12/27/2024 10:38:23 12/27/2024 11:37:01 Discharge from right nipple 0484137463 2413774 N64.52 [facility] to [facility] CBC and CMP Attention deficit hyperactivity disorder, 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.0 stable, refill med Vitamin B1 2 deficiency (non anemic) 04877056 E53.8 recheck Vitamin B12 and folate Prediabetes 830012630 R7 3.03 recheck A1C Screening for cardiovascular system disease 710491614 Z13.6 check lipids Fatigue 49000341 R53.83 check thyroid Health Concerns Section Related Observation LastModified by Organization Detai ls LastModified Time None Recorded Concern Status LastModified by Organization Details LastModified Time None Recorded Payers Encounter Date Sequence Insurance Name Policy Number Policy Centeno Covered Member ID Centeno Member ID Guarantor Name 12/27/2024 1 [facility] (MEDICAID HMO) Mohinichitra Forde [id number] Mohini Forde Notes Date Note Type Note Provider Name and Address Organization Details Recorded Time 12/27/2024 text/html Patient presents today in the clinic for routine follow-up on her chronic health issues. Patient states that about 3 weeks ago she started having more nipple discharge and pain in her breast. She does have a history of an abscess in her right breast. She last saw [facility] in 2023 and was on a course of doxycycline. She states that this has never fully resolved over the past 2 years. She has had 2 I and D's with Dr. [facility]lvarez in [facility]. Patient states she just wants this taken care of. She is open to seeing a new provider. Patient is due for labs. She states that she was seeing Krystal Philippe in [place] for her psychiatric issues but she is now moved. She would like to have me refill her medicines. She is stable at this time. Angela Scott, CHRISTIAN [address] [place] [address], [address], [place], [address], [place] - [facility] - [place] & [place] 12/27/2024 15:08:48 OBGyn Episode No OBEpisode recorded.
--- OUTSIDE RECORDS SUMMARY | 2025-02-23 10:45 | XMS_ITS | Encounter Summary ---
Author Organization Healthcare Address [address] [place] [address] Care Team Providers Care Geotechnical Department Manager Name Role Phone Katina Scott APRN Primary Care Provider +1- [phone] Encounter Details Date Type Department Care Team (Latest Contact Info) Description 01/24/2025 Travel Social History Tobacco Use Types Packs/Day Years [...] on file documented as of this encounter Plan of Treatment Upcoming Encounters Date Type Department Care Team (Late st Contact Info) Description 02/27/2025 3:30 PM EDT Office Visit [facility] [address] [facility], [address] [place] [address] Mildred Goode MD [address] [facility] Anayeli Mratinezson [address] [address] 08/13/2025 9:50 AM EST Appointment [facility] [place] [address] Anayeli Be [facility] [address] [place] [address] 08/13/2025 10:30 AM EST Office Visit [facility] [address] [place] [address], [address] [place] [address] Danielle De La Garza APRN [address] [place] [address] documented as of this encounter Visit Diagnoses Not on filedocumented in this encounter Additional Health Concerns Assessment Noted Time A fall risk assessment has been complete d for the patient 01/24/2025 10:55 AM EDT A Body Mass Index follow-up plan has been documented for the patient 01/25/2025 12:22 PM EDT documented as of this encounter Care Teams Geotechnical Department Manager Relationship Specialty Start Date End Date Katina Scott APRN [address] [place] [address] PCP - General 02/14/24 documented as of this encounter
--- OUTSIDE RECORDS SUMMARY | 2025-02-23 10:46 | XMS_ITS | Encounter Summary ---
Author Organization Healthcare Address [address] [place] [id number] Care Team Providers Care Sephora Product Consultant Name Role Phone Katina Scott APRN Primary Care Provider +1- [phone] Encounter Details Date Type Department Care Team ([facility] Contact Info) Description 01/10/2025 Orders Only [facility] [address] [facility], [address] [place] [address] Surekha Morales RN GS - 5 MAIN MED-SURG Acute mastitis of right breast (Primary Dx) Social [...] Encounters Date Type Department Care Team (Late Contact Info) Description 02/27/2025 3:30 PM EDT Office Visit [facility] Breast Care Center [address] [facility], [address] [place] [address] Mildred Goode MD [address] [facility] Anayeli Be [address] [address] 08/13/2025 9:50 AM EST Appointment [facility] Breast Care Center [facility] [place] [address] Anayeli [facility] [address] [place] [address] 08/13/2025 10:30 AM EST Office Visit [facility] [address] [place] [address] Danielle De La Garza, CANOE MAKER [address] [place] [address] documented as of this encounter Results * US Breast Limited [...] signing this report, I, the attending physician, attmayankthat I have personally reviewed the images/data for the aboveexamination(s) and agree with the final edited report. Drafted by Gerard Peres MD on 01/24/2025 9:45 AM Final report signed by Tip Jeronimo MD on 01/24/2025 10:47 AM us Kalee Santa CANOE MAKER IMG BI PROCEDURES Final Re sult documented in this encounter Visit Diagnoses Diagnosis Acute mastitis of right breast- Primary Acute mastitis of right breast documented in this encounter Additional Health Concerns Assessment Noted Time A fall risk assessment has been complete d for the patient 03/20/2024 9:01 AM EDT documented as of this encounter Care Teams Sephora Product Consultant Relationship Specialty Start Date End Date Katina Scott APRN [address] [place] [address] PCP - General 02/14/24 documented as of this encounter
--- OUTSIDE RECORDS SUMMARY | 2025-02-23 10:46 | XMS_ITS | Encounter Summary ---
Author Organization Healthcare Address [address] [place] [id number] Care Team Providers Care Shirt Folder Name Role Phone Katina Scott APRN Primary Care Provider +1- [phone] Encounter Details Date Type Department Care Team (Late st Contact Info) Description 01/10/2025 Telephone [facility] [address] [place] [address] Kalee Santa, CERTIFIED VEHICLE FIRE INVESTIGATOR [address] [address] Social History Tobacco Use Types Packs/Day Years [...] on file documented as of this encounter Miscellaneous Notes * Telephone Encounter - Surekha Morales RN - 01/10/2025 4:59 PM EDT Spoke with patient, still has right palp mass that was supposed to be followed up in 2 months afterher March appointment. US and OV scheduled. * Telephone Encounter - Behzad Morales - 01/10/2025 4:02 PM EDT Patient wanting to schedule follow up ultrasound and appointment with Kalee. Please call back [phone]. documented in this encounter Plan of Treatment Upcoming Encounters Date Type Department Care Team ([facility] st Contact Info) Description 02/27/2025 3:30 PM EDT Office Visit [facility] [address] [facility], [address] [place] [address] Mildred Goode MD [address] [facility] [address] [place] [address] 08/13/2025 9:50 AM EST Appointment [facility] [place] [address] Anayeli [address] [facility] [address] [place] [address] 08/13/2025 10:30 AM EST Office Visit [facility] [place] [address] [facility], [address] [place] [address] Danielle De La Garza APRN [address] [facility] [address] [place] [address] documented as of this encounter Visit Diagnoses Not on filedocumented in this encounter Additional Health Concerns Assessment Noted Time A fall risk assessment has been complete d for the patient 03/20/2024 9:01 AM EDT documented as of this encounter Care Teams Shirt Folder Relationship Specialty Start Date End Date Katina Scott APRN [address] [place] [address] PCP - General 02/14/24 documented as of this encounter
--- OUTSIDE RECORDS SUMMARY | 2025-02-23 10:46 | XMS_ITS | Clinical Summary ---
Author Organization Healthcare Address [address] [place] [address] Care Team Providers Care Poultry Buyer Name Role Phone Katina Scott APRN Primary Care Provider [phone]- [phone] Allergies No known active allergies Medications * This document contains information received from the source organization and may not represent a complete record from that organization. busPIRone (Buspar) 30 MG tablet Take 0.5 tablets (15 mg) by mouth 2 (two) times a day. Active lamoTRIgine (LaMICtal) 100 MG tablet Take 1 tablet (100 mg) by mouth 1 (one) time each day. 02/01/2024 Active amitriptyline (Elavil) 25 MG tablet 1 tablet (25 mg) 1 (one) time each day in the evening. 01/12/2024 Active buPROPion XL (Wellbutrin XL) 300 MG 24 hr tablet Take 1 tablet (300 mg) by mouth 1 (one) time each day. 01/19/2024 Active sulfamethoxazol e-trimethoprim (Bactrim DS) 800-160 MG tabletIndicatio ns:Chronic mastitis of right breast Take 1 tablet by mouth 2 times a day for 7 days. 14 tablet 01/25/2025 02/02/20 25 amoxicillin-cla vulanate (Augmentin) 875-125 MG tabletIndicatio ns:Chronic mastitis of right breast Take 1 tablet by mouth 2 times a day for 10 days. 20 tablet 01/29/2025 02/09/20 25 Active Problems Problem Noted Date Diagnosed Date Tobacco use disorder 2024 Encounters Date Type Department Care Team Description 01/29/2025 Orders Only [facility] [address] [place] [phone] Gisel Villalba, WHIPPED TOPPING MIXER Chronic mastitis of right breast (Primary Dx) 01/26/2025 Orders Only [facility] [address] [place] [phone] Gisel Villalba, WHIPPED TOPPING MIXER Chronic mastitis of right breast (Primary Dx) 01/24/2025 9:30 AM EDT Office Visit [facility] [address] [facility]nd [place] [phone] Gisel Villalba, WHIPPED TOPPING MIXER Chronic mastitis of right breast (Primary Dx) 01/24/2025 8:49 AM EDT - 01/24/2025 11:59 PM EDT Hospital Encounter [facility] [address] [facility] [address] [place] [address] Acute mastitis of right breast Discharge Disposition: Home or Self Care 01/24/2025 8:28 AM EDT - 01/24/2025 8:48 AM EDT Hospital Encounter [facility] [address] [facility] [address] [place] [address] Acute mastitis of right breast Discharge Disposition: Home or Self Care 01/24/2025 8:07 AM EDT - 01/24/2025 8:27 AM EDT Hospital Encounter [facility] [address] [facility] [address] [place] [address] Acute mastitis of right breast Discharge Disposition: Home or Self Care 01/24/2025 Travel 01/10/2025 Orders Only [facility] [address] [facility] [place] [phone] Surekha Morales RN Acute mastitis of right breast (Primary Dx) 01/10/2025 Telephone [facility] [address] [facility] [address] [place] [address] Young, Kalee M, WHIPPED TOPPING MIXER from Last 3 Months Immunizations Immunization Administration Dates Next Due Tdap 04/15/2021 Social History Tobacco Use Types Packs/Day Years [...] on file Sexual Orientation Not on file Last Filed Vital Signs Vital Sign Reading Time Taken Comments Blood Pressure 100/74 01/24/2025 10:55 AM EDT Pulse 62 01/24/2025 10:55 AM EDT Temperature 36.7 C (98 F) 01/24/2025 10:55 AM EDT Respiratory Rate 17 01/24/2025 10:55 AM EDT Oxygen Saturation 100% 01/24/2025 10:55 AM EDT Inhaled Oxygen Concentration - - Weight 129 kg (285 lb 7.9 oz) 03/20/2024 8:59 AM EDT Height 154.9 cm (5' 1 ) 2024 9:04 AM EDT Body Mass Index 53.94 2024 9:04 AM EDT Plan of Treatment Upcoming Encounters Date Type Department Care Team ([facility] st Contact Info) Description 02/27/2025 3:30 PM EDT Office Visit [facility] [address] [place] [phone] Mildred Goode MD [address] [facility] Anayeli Ramiresrickson [address] [address] 08/13/2025 9:50 AM EST Appointment [facility] [place] [address] [address] [facility] [address] [place] [address] 08/13/2025 10:30 AM EST Office Visit [facility] [address] [place] [phone] Danielle De La Garza, WHIPPED TOPPING MIXER [address] [place] [phone] Health Maintenance Due Date Last Done Comments [facility]-HIV Screening 1991 [facility]-Hepatitis C Screening 1991 [facility]-Infant/Child/Adol SDOH Screenings 1991 [facility]-Varicella Vaccines (1 of 2 - 13+ 2-dose series) 02/15/2004 HPV Vaccines (1 - 3-dose series) 2006 [facility]- SDOH Screenings 2009 [facility]-Adult SDOH Screenings 2009 [facility]-Hepatitis B Vaccines (1 of 3 - 19+ 3-dose series) 2010 [facility]-Pneumococcal Vaccine: Pediatrics (0 to 5 Years) and At-Risk Patients (6 to 49 Years) (1 of 2 - PCV) 2010 [facility]-Pap Smear 10/12/2020 10/12/2017, 06/19/2013 [facility]-Cervical Cancer Screening 2021 [facility]-HPV/Cotest 2021 [id number] Vaccine ( - 2023- season) 2024 [facility]-Depression Screening 02/13/2025 2024 [facility]-Influenza Vaccine (#1) 2025 [facility]-DTaP,Tdap,and Td Vaccine s (3 - Td or Tdap) 04/15/2031 04/15/2021, 01/24/2016 [facility]-Zoster Vaccines (1 of 2) 2041 [facility]-Obesity Intervention Completed 01/24/2025 [facility]-HIB Vaccines Aged Out No longer e ligible based on patient's age to complete this topic [facility]-Hepatitis A Vaccines Aged Out No longer eligible based on patient's age to complete this topic [facility]-IPV Vaccines Aged Out No longer e ligible based on patient's age to complete this topic [facility]-Rotavirus Vaccines Aged Out No lo nger eligible based on patient's age to complete this topic Procedures Procedure Name Priority Date/Time Associated Diagnosis Comments WOUND CULTURE AND GRAM STAIN Routine 01/24/2025 11:53 AM EDT Chronic mastitis of right breast MAMMOGRAPHY BREAST DIAGNOSTIC TOMOSYNTHESIS BILATERAL Routine 01/24/2025 9:18 AM EDT Acute mastitis of right breast US BREAST LIMITED LEFT Routine 8:47 AM EDT Acute mastitis of right breast US BREAST LIMITED RIGHT Routine 01/24/2025 8:35 AM EDT Acute mastitis of right breast from Last 3 Months Results * (ABNORMAL) Wound Culture and Gram Stain (01/24/2025 11:53 AM EDT) CULTURE READING WOUND Moderate Growth 01/27/2025 7:16 AM EDT [facility] CULTURE READING WOUND Schaalia turicensis (formerly known as Actinomyces turicensis)(A) 01/27/2025 7:16 AM EDT [facility] Comment: This isolate has been identified using the FDA Approved [employer]a. [employer] Kang[employer] CA System The organism value for this result has been updated. These results have been appended to the previously preliminary verified report. This is a corrected result. Previous organism was Gram positive pilo on 01/26/2025 at 0749 EDT. Gram Stain Result No polymorphonuclear leukocytes seen(A) 01/27/2025 7:16 AM EDT [facility] Gram Stain Result Numerous Gram positive cocci in pairs and chains(A) 01/27/2025 7:16 AM EDT [facility] Gram Stain Result Moderate Gram negative rods(A) 01/27/2025 7:16 AM EDT [facility] Swab Skin structure / Unknown Non-blood Collection / Unknown 01/24/2025 11:53 AM EDT 01/24/2025 12:11 PM EDT Gisel Villalba APRN LAB MICROBIOLOGY - GENER AL ORDERABLES Final Result [facility] [address] [place] [address] * Mammography Breast Diagnostic Tomosynthesis Bilateral (01/24/2025 [...] APRN IMG BI PROCEDURES Final Re sult * US Breast Limited Left (01/24/2025 8:47 [...] on 01/24/2025 10:47 AM us Kalee Santa WHIPPED TOPPING MIXER IMG BI PROCEDURES Final Re sult * US Breast Limited Right (01/24/2025 8:35 [...] signing this report, I, the attending physician, attestthat I have personally reviewed the images/data for the aboveexamination(s) and agree with the final edited report. Drafted by Gerard Peres MD on 01/24/2025 9:45 AM Final report signed by Tip Jeronimo MD on 01/24/2025 10:47 AM Kalee Santa APRN IMG BI PROCEDURES Final Re sult from Last 3 Months Insurance [employer] Care Teams Poultry Buyer Relationship Specialty Start Date End Date Katina Scott APRN [address] [place] [id number] PCP - General 02/14/24
--- OUTSIDE RECORDS SUMMARY | 2025-02-23 10:46 | XMS_ITS | Encounter Summary ---
Author Organization Healthcare Address [address] [place] [address] Care Team Providers Care Industrial Psychology Teacher Name Role Phone Tyler Katina Miles APRN Primary Care Provider [phone]- [phone] Encounter Details Date Type Department Care Team (Late st Contact Info) Description 01/29/2025 Orders Only [facility] [address] [place] [address] Gisel Villalba, ASSOCIATE STORE LEADER [address] [place] [address] Chronic mastitis of right breast (Primary Dx) [...] as of this encounter Miscellaneous Notes * Progress Notes - Gisel Villalba APRN - 01/29/2025 3:07 PM EDT Called patient and reviewed wound culture which showed Schaalia turicensis (formerly known as Actinomyces turicensis) Abnormal . Discussed that bactrim would not cover this. Send ing in script for Augmentin for 10 days. Patient verbalized understanding and was agreeable to the plan. documented in this encounter Plan of Treatment Upcoming Encounters Date Type Department Care Team (Late st Contact Info) Description 02/27/2025 3:30 PM EDT Office Visit [facility] [address] [facility]nd [place] [address] Mildred Goode MD [address] [facility] [address] [facility] [address] [place] [phone] 08/13/2025 9:50 AM EST Appointment [facility] [place] [facility] [address] [facility] [address] [place] [address] 08/13/2025 10:30 AM EST Office Visit [facility] [address] [facility] [place] [phone] Danielle De La Garza APRN [address] [place] [address] documented as of this encounter Visit Diagnoses Diagnosis Chronic mastitis of right breast- Primary documented in this encounter Additional Health Concerns Assessment Noted Time A fall risk assessment has been complete d for the patient 01/24/2025 10:55 AM EDT A Body Mass Index follow-up plan has been documented for the patient 01/25/2025 12:22 PM EDT documented as of this encounter Care Teams Industrial Psychology Teacher Relationship Specialty Start Date End Date Katina Scott APRN [address] [place] [address] PCP - General 02/14/24 documented as of this encounter
--- OUTSIDE RECORDS SUMMARY | 2025-02-23 10:46 | XMS_ITS | Encounter Summary ---
Author Organization Healthcare Address [address] [place] [address] Care Team Providers Care Truck Bracer Name Role Phone Tyler Katina Miles APRN Primary Care Provider [phone]- [phone] Encounter Details Date Type Department Care Team (Late Contact Info) Description 01/26/2025 Orders Only [facility] [address] [place] [phone] Gisel Villalba APRN [address] [facility] [address] [place] [address] Chronic mastitis of right breast [...] Office Visit [facility] [address] [facility]nd [place] [phone] Mildred Goode MD [address] [facility] [address] Martinezson [facility] [address] [place] [phone] 08/13/2025 9:50 AM EST Appointment [facility] Z[address] Be [facility] [address] [place] [address] 08/13/2025 10:30 AM EST Office Visit [facility] [address] [place] [address] Danielle De La Garza APRN [address] [place] [phone] Scheduled Orders Name Type Priority Associated Diagnoses Orde r Schedule Additional Susceptibilities and/or Identification Microbiology Routine Chronic mastitis of right breast Expected: 01/26/2025 (Approximate), Expires: 07/30/2026 documented as of this encounter Visit Diagnoses Diagnosis Chronic mastitis of right breast- Primary documented in this encounter Additional Health Concerns Assessment Noted Time A fall risk assessment has been complete d for the patient 01/24/2025 10:55 AM EDT A Body Mass Index follow-up plan has been documented for the patient 01/25/2025 12:22 PM EDT documented as of this encounter Care Teams Truck Bracer Relationship Specialty Start Date End Date Kaitna Scott APRN [address] [place] [address] PCP - General 02/14/24 documented as of this encounter
--- OUTSIDE RECORDS SUMMARY | 2025-02-23 10:46 | XMS_ITS | Data Portability ---
Author Organization [facility] ADRIAN Castrejon ADMIN Address [address] [place] [id number] Care Team Providers [employer] Sales Consultant Name Role Phone ANGELA SCOTT Primary Care Provider Assessment No assessment recorded. Plan of Treatment Reminders Order Date Submit Date Provider Last Modified By Organization Details Last Modified Time Details Appointments None recorded. Lab vitamin B12 + folate, serum or blood [address] [facility], [address] [place] [address] [place], [address], 5 07:50:04 lipid panel, serum [address] [facility], [address] [place] [address] [place], [address], 5 07:50:04 glycohemog lobin, total, blood [address] [facility], [address] [place] [address] [place], [address], 5 07:50:04 CBC w/ auto diff [address] [facility], [address] [place] [address] [place], [address], 5 07:50:04 CMP, serum or plasma [address] [facility], [address] [place] [address] [place], [address], 5 07:50:04 TSH + free T4, serum 2024 025 [email or web address], [address] [place] [address] [place], [address], 5 07:50:04 urinalysis , dipstick [address]- [address], [address] [place] [address], [address], 4 11:43:26 HbA1c (hemoglobi n A1c), blood 2022 023 [facility]- Dept 648, [address] [place] [address], [address], 3 13:21:10 prolactin, serum 2022 023 [facility], [address] [place] [address] [place], [address], 3 14:33:00 TSH + free T4, serum 2022 023 [email or web address] [facility], [address] [place] [address] [place], [address], 3 07:57:03 Referral breast surgery referral 2024 025 jennifer Daniel MD, [address] [place], [address], 5 09:39:14 general surgeon referral 2023 024 HAWA Álvarez MD, [address], [address], 4 09:46:22 Procedures None recorded. Surgeries None recorded. Imaging None recorded. Medication Orders amitriptyl ine 25 mg tablet 2023 024 [facility]acy #3016, [address] [place], [address], 4 12:17:20 bupropion HCl XL 300 mg 24 hr tablet, extended release 2023 024 [facility] [address] [place] [address], [address], 4 12:17:21 levofloxac in 500 mg tablet 2023 025 [facility] #3016, [address] [place] [address], [address], 5 11:09:16 potassium chloride ER 10 mEq tablet,ext ended release 2023 024 [address], [address] [place] [address], [address], 4 09:57:34 folic acid 400 mcg tablet 2022 023 [address] [facility] [address], [address] [place] [address], [address], 4 09:57:14 furosemide 20 mg tablet 2022 023 [address] [facility] [address], [address] [place] [address], [address], 4 09:57:18 potassium chloride ER 10 mEq tablet,ext ended release 2022 023 [address], [address] [place] [address], [address], 4 09:57:34 amitriptyl ine 25 mg tablet 2022 023 [facility] [address] [place] [address], [address], 3 10:52:58 bupropion HCl XL 300 mg 24 hr tablet, extended release 2022 023 [facility], [address] [place], [address], 3 10:53:00 Vraylar 3 mg capsule [address]/Pharmacy #3016, [address] [place], [address], 5 11:07:40 buspirone 10 mg tablet 2022 023 [facility] #3016, [address] [place], [address], 3 10:52:57 fluoxetine 40 mg capsule [address]/Pharmacy #3016, [address] [place], [address], 4 10:12:15 Patient TargetsNo targets recorded. Patient Instructions Encounter Date Encounter Id Patient Instructions Last Modified By Organization Details Last Modified Time 07/16/2023 [id number] complete PFT w/ post bronchodilator spirometry* ATHENAFAX Not available 07/16/2023 15:07:11 Reason for Referral General Surgeon Referral for Mass of right breast Referring Physician: Shelley Hong, Internal Medicine, Encounter Date: 10/05/2023 Breast Surgery Referral for Discharge from right nipple Referring Physician: Angela Scott, Family Medicine, Encounter Date: 12/27/2024 Results Created Date Observation Date Name Description Value Unit Range Abnormal Flag Note LastModifiedBy Organization Detail LastModifiedTime 07/16/2007/16/2023 T4 FREE T4 free 0.92 NG/dL 0.78-2 .19 Not Available [facility] (Pre[facility]Op [facility]) [address] [place] [address] [place], [address], 07/16/2023 19:57:20 07/16/20 23 07/16/2023 T4 FREE note Unles s other ayala noted testi ng perfo rmed at: [facility] [address] [place] [address] Marcello diego MD Not Available [facility] (Pre-Op Clinic) [address] [place] [address] [place], [address], 07/16/2023 19:57:20 07/16/20 23 07/16/2023 TSH thyroid stim hormone 1.87 uIU/m L 0.465- 4.68 Not Available [facility] (Pre-Op Clinic) [address] [place] [address] [place], [address], 07/16/2023 20:17:11 07/16/20 23 07/16/2023 TSH note Unles s other ayala noted testi ng perfo rmed at: [facility] [address] [place] [address] Marcello diego MD Not Available [facility] (Pre-Op Clinic) [address] [place] [address] [place], [address], 07/16/2023 20:17:11 07/16/20 23 07/16/2023 PROLA CTIN note Unles s other ayala noted testi ng perfo rmed at: [facility] [address] [place] [address] Marcello diego MD Not Available [facility] (Pre-Op Clinic) [address] [place] [address] [place], [address], 07/18/2023 14:33:00 07/16/20 23 07/18/2023 PROLA CTIN prolactin 28.3 NG/mL 4.8-23 .3 high Eff ectiv e Decem lou 2022 Prola ctin refer ence* * inter rachid will be george ing to: Age Male (ng/m L) Femal e (ng/m L) 0 - 30 days 4.3 - 32.8 4.5 - 24.4 1 - 6 mos 5.4 - 51.4 5.4 - 51.4 7m - 1 yrs 5.3 - 28.9 4.8 - 33.4 2 - 12 yrs 1.8 - 44.2 4.8 - 33.4 13 - 30 yrs 3.6 - 31.5 4.8 - 33.4 31 - 50 yrs 3.9 - 22.7 4.8 - 33.4 51 - 80 yrs 3.6 - 25.2 3.6 - 25.2 >80 yrs 3.6 - 32.0 3.6 - 32.0 Perfo rmed at: CB - [facility] Dub n [address] [facility], [facility] ([facility]3], [place] [address] 1269 Lab Direc tor: Richard singleton PhD, Phone : [phone] Not Available [facility] (Pre-Op Clinic) [address] [place] [address] , [place], [address], 07/18/2023 14:33:00 07/16/20 23 07/16/2023 HbA1c (hemo globi n A1c), blood HbA1c 5.7 Not Available [facility]- Dept [address] [place] [address], [address], 07/16/2023 10:56:51 01/26/20 24 01/26/2024 urina lysis , dipst ick Leukocytes (reference range) negati ve Not Available [facility]- Dept [address] [place] [address], [address], 01/26/2024 10:13:46 01/26/20 24 01/26/2024 urina lysis , dipst ick Nitrite (reference range:) negati ve Not Available [facility]- Dept [address] [place] [address], [address], 01/26/2024 10:13:46 01/26/20 24 01/26/2024 urina lysis , dipst ick Urobilinogen (reference range) 0.2 Not Available [facility]- Dept [address] [place] [address], [address], 01/26/2024 10:13:46 06/12/01/26/2024 urina lysis , dipst ick Protein (reference range) negati ve Not Available [address], [address], 01/26/2024 10:13:46 01/26/20 24 01/26/2024 urina lysis , dipst ick pH (reference range 5-8.5) 7.0 Not Available [address], [address], 01/26/2024 10:13:46 01/26/20 24 01/26/2024 urina lysis , dipst ick Blood (reference range:) non-He molyze d: Trace Not Available [address], [address], 01/26/2024 10:13:46 01/26/20 24 01/26/2024 urina lysis , dipst ick Specific [place] (reference range) 1.010 Not Available [address], [address], 01/26/2024 10:13:46 01/26/20 24 01/26/2024 urina lysis , dipst ick Ketone (reference range) negati ve Not Available [address], [address], 01/26/2024 10:13:46 01/26/20 24 01/26/2024 urina lysis , dipst ick Bilirubin (reference range) negati ve Not Available [address], [address], 01/26/2024 10:13:46 01/26/20 24 01/26/2024 urina lysis , dipst ick Glucose (reference range) negati ve Not Available Agustín [facility]- Dept [address] [place] [address], [address], 01/26/2024 10:13:46 01/26/20 24 01/26/2024 urina lysis , dipst ick Color (reference range: yellow-brown ) Yellow Not Available [facility]- Dept [address] [place] [address], [address], 01/26/2024 10:13:46 12/28/19 25 12/27/2024 CBC W/ AUTO DIFF WBC 15.36 K/uL 4.5-11 .5 high Not Available [facility] (Pre-Op [facility]) [address] [place] [address] [place], [address], 12/27/2024 19:21:11 12/28/19 25 12/27/2024 CBC W/ AUTO DIFF RBC 4.20 M/uL 4.0-5. 4 Not Available [facility] (Pre-Op Clinic) [address] [place] [address] [place], [address], 12/27/2024 19:21:11 12/28/19 25 12/27/2024 CBC W/ AUTO DIFF HGB 13.1 g/dL 12.0-1 5.0 Not Available [facility] (Pre-Op [facility]) [address] [place] [address] [place], [address], 12/27/2024 19:21:11 12/28/19 25 12/27/2024 CBC W/ AUTO DIFF HCT 39.6 % 35-49 Not Available [facility] (Pre-Op [facility]) [address] [place] [address] [place], [address], 12/27/2024 19:21:11 12/28/19 25 12/27/2024 CBC W/ AUTO DIFF MCV 94.3 fL 80.0-1 00.0 Not Available [facility] (Pre-Op Clinic) [address] [place] [address] [place], [address], 12/27/2024 19:21:11 12/28/19 25 12/27/2024 CBC W/ AUTO DIFF MCH 31.2 pg 26.0-3 2.0 Not Available [facility] (Pre-Op [facility]) [address] [place] [address] [place], [address], 12/27/2024 19:21:11 12/28/19 25 12/27/2024 CBC W/ AUTO DIFF MCHC 33.1 g/dL 32.0-3 6.0 Not Available [facility] (Pre-Op [facility]) [address] [place] [address] [place], [address], 12/27/2024 19:21:11 12/28/19 25 12/27/2024 CBC W/ AUTO DIFF RDW 15.5 % 11.5-1 4.5 high Not Available [facility] (Pre[facility]Op [facility]) [address] [place] [address] [place], [address], 12/27/2024 19:21:11 12/28/19 25 12/27/2024 CBC W/ AUTO DIFF platelet count 278 K/uL 142-42 4 Not Available [facility] ([facility]-Op [facility]) [address] [place] [address] [place], [address], 12/27/2024 19:21:11 12/28/19 25 12/27/2024 CBC W/ AUTO DIFF MPV 10.9 fL 6.8-10 .2 high Not Available [facility] (Pre-Op [facility]) [address] [place] [address] [place], [address], 12/27/2024 19:21:11 12/28/19 25 12/27/2024 CBC W/ AUTO DIFF neutrophil % 50.0 % 50-70 Not Available [facility] ([facility]Op [facility]) [address] [place] [address] [place], [address], 12/27/2024 19:21:11 12/28/19 25 12/27/2024 CBC W/ AUTO DIFF lymphocyte % 41.5 % 18.0-4 2.0 Not Available [facility] (Pre-Op [facility]) [address] [place], [address], 12/27/2024 19:21:11 12/28/1912/27/2024 CBC W/ AUTO DIFF monocyte % 4.8 % 2.0-11 .0 Not Available [facility] (Pre-Op Clinic) [address] [place] [address] [place], [address], 12/27/2024 19:21:11 12/28/19 25 12/27/2024 CBC W/ AUTO DIFF eosinophil % 2.5 % 1.0-3. 0 Not Available [facility] (Pre-Op Clinic) [address] [place] [address] [place], [address], 12/27/2024 19:21:11 12/28/1912/27/2024 CBC W/ AUTO DIFF basophil % 0.5 % 0.0-2. 0 Not Available [facility] (Pre-Op [facility]) [address] [place] [address] [place], [address], 12/27/2024 19:21:11 12/28/1912/27/2024 CBC W/ AUTO DIFF immature granulocytes % 0.7 % 0.0-0. 8 Not Available [facility] (Pre-Op [facility]) [address] [place] [address] [place], [address], 12/27/2024 19:21:11 12/28/1912/27/2024 CBC W/ AUTO DIFF nucleated red blood cells % 0.0 % Not Available [facility] (Pre-Op Clinic) [address] [place] [address] [place], [address], 12/27/2024 19:21:11 12/28/1912/27/2024 CBC W/ AUTO DIFF neutrophil # 7.69 K/uL Not Available [facility] (Pre-Op Clinic) [address] [place] [address] [place], [address], 12/27/2024 19:21:11 12/28/19 25 12/27/2024 CBC W/ AUTO DIFF lymphocyte # 6.37 K/uL Not Available [facility] (Pre-Op [facility]) [address] [place], [address], 12/27/2024 19:21:11 12/28/19 25 12/27/2024 CBC W/ AUTO DIFF monocyte # 0.73 K/uL Not Available [facility] (Pre-Op Clinic) [address] [place] [address] [place], [address], 12/27/2024 19:21:11 12/28/19 25 12/27/2024 CBC W/ AUTO DIFF eosinophil # 0.39 K/uL Not Available [facility] (Pre-Op [facility]) [address] [place] [address] [place], [address], 12/27/2024 19:21:11 12/28/19 25 12/27/2024 CBC W/ AUTO DIFF basophil # 0.08 K/uL Not Available [facility] (Pre-Op [facility]) [address] [place] [address] [place], [address], 12/27/2024 19:21:11 12/28/19 25 12/27/2024 CBC W/ AUTO DIFF immature gramulocytes # 0.10 K/uL Not Available [facility] (Pre-Op Clinic) [address] [place] [address] [place], [address], 12/27/2024 19:21:11 12/28/19 25 12/27/2024 CBC W/ AUTO DIFF nucleated red blood cells # 0.00 k/uL Not Available [facility] (Pre-Op [facility]) [address] [place] [address] [place], [address], 12/27/2024 19:21:11 12/28/1912/27/2024 CBC W/ AUTO DIFF manual differential NO Not Available [facility] (Pre-Op Clinic) [address] [place] [address] [place], [address], 12/27/2024 19:21:11 12/28/19 25 12/27/2024 CBC W/ AUTO DIFF note Unles s other ayala noted testi ng perfo rmed at: [facility] [address] [place] [address] Marcello diego MD Not Available [facility] (Pre-Op [facility]) [address] [place] [address] [place], [address], 12/27/2024 19:21:11 12/28/19 25 12/27/2024 T4 FREE T4 free 0.89 NG/dL 0.78-2 .19 Not Available [facility] (Pre-Op [facility]) [address] [place] [address] [place], [address], 12/27/2024 20:08:40 12/28/19 25 12/27/2024 T4 FREE note Unles s other ayala noted testi ng perfo rmed at: [facility] [address] [place] [address] Marcello diego MD Not Available [facility] (Pre[facility]Op [facility]) [address] [place] [address] [place], [address], 12/27/2024 20:08:40 12/28/19 25 12/27/2024 COMP METAB OLIC PANEL sodium 137 mmol/ L 137-14 7 Not Available [facility] (Pre[facility]Op [facility]) [address] [place] [address] [place], [address], 12/27/2024 20:21:57 12/28/19 25 12/27/2024 COMP METAB OLIC PANEL potassium 4.5 mmol/ L 3.5-5. 1 Not Available [facility] (Pre[facility]Op [facility]) [address] [place] [address] [place], [address], 12/27/2024 20:21:57 12/28/19 25 12/27/2024 COMP METAB OLIC PANEL chloride 105 mmol/ L 98-110 Not Available [facility] ([facility]Op [facility]) [address] [place] [address] [place], [address], 12/27/2024 20:21:57 12/28/19 25 12/27/2024 COMP METAB OLIC PANEL carbon dioxide 24 mmol/ L 21-30 Not Available [facility] (Pre[facility]Op [facility]) [address] [place], [address], 12/27/2024 20:21:57 12/28/19 25 12/27/2024 COMP METAB OLIC PANEL anion gap 8 mmol/ L 6-14 Not Available [facility] (Pre-Op [facility]) [address] [place] [address] [place], [address], 12/27/2024 20:21:57 12/28/19 25 12/27/2024 COMP METAB OLIC PANEL glucose 86 mg/dL 70-115 Not Available [facility] (Pre-Op [facility]) [address] [place] [address] [place], [address], 12/27/2024 20:21:57 12/28/19 25 12/27/2024 COMP METAB OLIC PANEL BUN 5 mg/dL 7-17 low Not Available [facility] (Pre-Op [facility]) [address] [place] [address] [place], [address], 12/27/2024 20:21:57 12/28/19 25 12/27/2024 COMP METAB OLIC PANEL creatinine 0.7 mg/dL 0.5-1. 5 Not Available [facility] (Pre-Op [facility]) [address] [place] [address] [place], [address], 12/27/2024 20:21:57 12/28/19 25 12/27/2024 COMP METAB OLIC PANEL BUN/creatini ne ratio 7 10-20 low Not Available [facility] (Pre-Op [facility]) [address] [place] [address] [place], [address], 12/27/2024 20:21:57 12/28/19 25 12/27/2024 COMP METAB OLIC PANEL glom filtration rate 117 mL/mi n >60- GFR LIMIT ATION : The eGFR equat ion CKD-E PI 2020 is not appli cable for pedia tric patie nts or great er than 90 years of age. The follo wing condi tions may alter the GFR resul t: extre mes in body size, malnu triti on or obesi ty, skele silvio muscl e disea se, parap legia or quadr ipleg ia, veget antonio diet or rapid ly george ing kiney funct ion. Not Available [facility] (Pre[facility]Op [facility]) [address] [place] [address] [place], [address], 12/27/2024 20:21:57 12/28/19 25 12/27/2024 COMP METAB OLIC PANEL osmolality (calculated) 282 mosmo l/kg 275-30 1 OSMOL ALITY IS A CALCU LATIO N UTILI ZING THE SERUM /PLAS MA SODIU M, GLUCO SE AND UREA NITRO GEN (BUN) LEVEL S. FOR THE MOST ACCUR ATE RESUL T A MEASU RED SERUM OSMOL ALITY IS SUGGE STED. Not Available [facility] (Pre[facility]Op [facility]) [address] [place] [address] [place], [address], 12/27/2024 20:21:57 12/28/19 25 12/27/2024 COMP METAB OLIC PANEL total protein 6.7 g/dL 6.2-8. 2 Not Available [facility] (Pre-Op [facility]) [address] [place] [address] [place], [address], 12/27/2024 20:21:57 12/28/19 25 12/27/2024 COMP METAB OLIC PANEL albumin 4.1 g/dL 3.5-5. 0 Not Available [facility] ([facility]Op [facility]) [address] [place] [address] [place], [address], 12/27/2024 20:21:57 12/28/19 25 12/27/2024 COMP METAB OLIC PANEL calcium 9.4 mg/dL 8.5-10 .8 Not Available [facility] ([facility]Op [facility]) [address] [place] [address] [place], [address], 12/27/2024 20:21:57 12/28/19 25 12/27/2024 COMP METAB OLIC PANEL bilirubin total 0.2 mg/dL 0.2-1. 3 Not Available [facility] (Pre[facility]Op [facility]) [address] [place] [address] [place], [address], 12/27/2024 20:21:57 12/28/19 25 12/27/2024 COMP METAB OLIC PANEL AST (SGOT) 20 IU/L 14-36 Not Available [facility] ([facility]Op [facility]) [address] [place] [address] [place], [address], 12/27/2024 20:21:57 12/28/19 25 12/27/2024 COMP METAB OLIC PANEL ALT (SGPT) 19 IU/L 0-35 Pleas e note new refer ence inter rachid for ALT. Due to a recen t manuf actur er metho dolog y george e, the refer ence inter rachid for ALT is lower effec tive December 05, 2020. Not Available [facility] (Pre[facility]Op [facility]) [address] [place] [address] [place], [address], 12/27/2024 20:21:57 12/28/19 25 12/27/2024 COMP METAB OLIC PANEL alk phosphatase 57 IU/L 38-126 Not Available [facility] (Pre-Op Clinic) [address] [place] [address] [place], [address], 12/27/2024 20:21:57 12/28/19 25 12/27/2024 COMP METAB OLIC PANEL note Unles s other ayala noted testi ng perfo rmed at: [facility] [address] [place] [address] Marcello diego MD Not Available [facility] (Pre-Op [facility]) [address] [place] [address] [place], [address], 12/27/2024 20:21:57 12/28/19 25 12/27/2024 LIPID PANEL cholesterol 146 mg/dL 0-200 Not Available [facility] (Pre[facility]Op [facility]) [address] [place], [address], 12/27/2024 20:21:58 12/28/19 25 12/27/2024 LIPID PANEL HDL 29 mg/dL 40- low Not Available [facility] (Pre[facility]Op [facility]) [address] [place], [address], 12/27/2024 20:21:58 12/28/19 25 12/27/2024 LIPID PANEL total chol/HDL ratio 5.0 0-4 high Not Available [facility] ([facility]Op [facility]) [address] [place], [address], 12/27/2024 20:21:58 12/28/19 25 12/27/2024 LIPID PANEL triglyceride 173 mg/dL 35-135 high Not Available [facility] (Pre-Op [facility]) [address] [place], [address], 12/27/2024 20:21:58 12/28/19 25 12/27/2024 LIPID PANEL LDL calculated 82 mg/dL 0-130 Not Available [facility] (Pre[facility]Op [facility]) [address] [place], [address], 12/27/2024 20:21:58 12/28/19 25 12/27/2024 LIPID PANEL VLDL calculated 35 mg/dL 0-40 Not Available [facility] ([facility]-Op [facility]) [address] [place], [address], 12/27/2024 20:21:58 12/28/19 25 12/27/2024 LIPID PANEL note Unles s other ayala noted testi ng perfo rmed at: [facility] [address] [place] [address] Marcello diego MD Not Available [facility] (Pre[facility]Op [facility]) [address] [place], [address], 12/27/2024 20:21:58 12/28/19 25 12/27/2024 TSH thyroid stim hormone 1.02 uIU/m L 0.465- 4.68 Not Available [facility] (Pre[facility]Op [facility]) [address] [place] [address] [place], [address], 12/27/2024 20:53:58 12/28/19 25 12/27/2024 TSH note Unles s other ayala noted testi ng perfo rmed at: [facility] [address] [place] [address] Marcello diego MD Not Available [facility] ([facility]Op [facility]) [address] [place] [address] [place], [address], 12/27/2024 20:53:58 12/28/1912/27/2024 HEMOG LOBIN A1C note Unles s other ayala noted testi ng perfo rmed at: [facility] [address] [place] [address] Marcello diego MD Not Available [facility] ([facility]Op [facility]) [address] [place] [address] [place], [address], 12/28/2024 05:52:18 12/28/1912/28/2024 HEMOG LOBIN A1C HGB A1C 5.4 % 4.3-6. 1 HEMOG LOBIN LEVEL S ARE RELAT ED TO MEAN BLOOD GLUCO SE LEVEL S DURIN G THE PRECE DING 2-3 MONTH S. REFER ENCE RANGE NON-D IABET IC PATIE NTS: 4.3 - 6.1 % DIABE TIC PATIE NTS: 6.2 % AND ABOVE Not Available [facility] ([facility]Op [facility]) [address] [place] [address] [place], [address], 12/28/2024 05:52:18 12/28/19 25 12/28/2024 HEMOG LOBIN A1C estimated average glucose(EAG) 108 mg/dL 77-128 Not Available [facility] ([facility]Op [facility]) [address] [place] [address] [place], [address], 12/28/2024 05:52:18 12/28/1912/27/2024 VITAM IN B12 note Unles s other ayala noted testi ng perfo rmed at: [facility] [address] [place] [address] Marcello diego MD Not Available [facility] (Pre-Op [facility]) [address] [place] [address] [place], [address], 12/28/2024 09:02:46 12/28/1912/28/2024 VITAM IN B12 vitamin B12 252 pg/mL 239-93 1 Not Available [facility] (Pre-Op [facility]) [address] [place] [address] [place], [address], 12/28/2024 09:02:46 12/28/1912/28/2024 VITAM IN B12 folate (folic acid), serum 1.9 NG/mL 2.76- low Not Available [facility] (Pre[facility]Op [facility]) [address] [place] [address] [place], [address], 12/28/2024 09:02:46 07/26/20 23 07/22/2023 MAMMO , scree esteban, digit al, bilat eral No observ ation record ed. [email or web address] [facility] [address], [place], [id number], 07/28/2023 14:07:16 08/04/20 23 08/02/2023 , esperanza t, unila teral No observ ation record ed. [facility] [address], [place], [address], 08/27/2023 08:24:02 08/05/20 23 08/02/2023 US, esperanza t, unila teral No observ ation record ed. [facility] (Scheduling) [address], [place], [address], 08/05/2023 10:32:57 09/02/19 24 08/25/2023 needl e core biops y, breas t, ultra sound jes nce (PROC ) No observ ation record ed. [facility] (Scheduling) [address], [place], [address], 09/09/2023 18:54:33 01/12/20 24 01/12/2024 XR, chest , 2 view No observ ation record ed. [address], [place], [id number], 01/12/2024 16:08:31 01/12/20 24 01/12/2024 elect true [email or web address] am No observ ation record ed. [facility] [address], [place], [address], 01/14/2024 11:17:36 01/03/20 25 01/02/2025 imagi ng inter preta tion No observ ation record ed. [email or web address], [place], [address], 01/03/2025 08:26:08 01/04/20 25 01/02/2025 trans -thor acic echoc ardio gram (TTE) (PROC ) No observ ation record ed. [id number] [address], [place], [address], 01/03/2025 14:11:17 Result Notes None recorded. Problems Name Problem SNOMED Code Status Onset Date Resolution Date Notes Provider Name and Address Organization Details Recorded Time Dysmenorrhe a 347054365 Active 2023 Angela Scott NP [address], [address], [place], [address], [facility] & [place] 12:15:44 Irregular periods 83855037 Active 2023 Angela Scott NP [address], [address], [place], [address], [place] [facility] [place] & [place] 4 12:16:19 Leukocytosi s 568262115 Active 2021 Angela Scott NP [address], [address], [place], [address], [place] [facility] & [place] 2 13:49:45 Hypoglycemi a 208640219 Active 2021 Angela Scott NP [address], [address], [place], [address], [place] [facility] & [place] 2 13:49:47 Morbid obesity 552992456 Active 2022 Angela Scott NP [address], [address], [place], [address], [place] & [place] 3 12:03:27 Vitamin B12 deficiency (non anemic) 93153681 Active 2022 Angela Scott NP [address], [address], [place], [address], [place] & [place] 3 12:03:53 Fatigue 98174105 Active 2022 Angela Scott NP [address], [address], [place], [address], [place] & [place] 5 11:29:42 Bipolar disorder 07103632 Active 2022 Angela Scott NP [address], [address], [place], [address], [place] & [place] 3 12:05:15 Generalized anxiety disorder 58784068 Active 2022 Angela Scott NP [address], [address], [place], [address], [place] & [place] 3 12:05:18 Attention deficit hyperactivi ty disorder, predominant ly inattentive type 80728079 Active 2022 Angela Scott NP [address], [address], [place], [address], [place] & [place] 3 13:23:58 Abscess of breast 93911711 Active 2022 Angela Scott NP [address], [address], [place], [address], [place] & [place] 3 11:27:43 Peripheral edema 282152358 Active 2022 Angela Scott NP [address], [address], [place], [address], [place] & [place] 3 10:18:55 Dyspnea on exertion 69639055 Active 2022 Angela Scott NP [address], [address], [place], [address], [place] & [place] 3 10:21:19 Mass of right breast 7705657708505 9106 Active 2022 Angela Scott NP [address], [address], [place], [address], [place] & [place] 3 10:21:36 Discharge from right nipple 0022396519523 9101 Active 2022 Angela Scott NP [address], [address], [place], [address], [place] & [place] 3 10:49:55 Prediabetes 981266408 Active 2022 Angela Scott NP [address], [address], [place], [address], [place] & [place] 3 10:56:46 Mammography abnormal 252049501 Active 2022 Angela Scott NP [address], [address], [place], [address], [place] & [place] 3 09:51:00 Tobacco dependence caused by cigarettes 1544278016070 9107 Active 2023 Shelley Hong MD [address], [address], [place], [address], [place] [facility] & [place] 4 10:36:39 Dark yellow urine 465780393 Active 2023 Angela Scott NP [address], [address], [place], [address], [place] [facility] & [place] 4 10:13:44 Problem Notes None recorded. Procedures Surgical History Date Name Laterality Status Provider Name and Address Organization Details Recorded Time 07/22/20 Most Recent Mammogram completed Keshav Mcintyrez [place] - [place] [facility] & [place] 09/23/2023 10:59:16 Breast Biopsy completed Lucreciacharley Price [place] - [facility] & [place] 09/23/2023 10:59:23 cholecystectomy completed Leximarialuisa Teresahellen [place] - [place] [facility] & [place] 05/25/2022 10:18:47 procedure on fallopian tube completed Inocencioisrael Teresajyotsnal [place] - [facility] & [place] 05/25/2022 10:19:58 Imaging Results None recorded. Procedure [...] Available Not Available Not Available amoxicillin 875 mg-potassiu m clavulanate 125 mg tablet TAKE 1 TABLET [...] completed Not Available Not Available Not Available [facility] COVID-19 Antigen Rapid Home Test kit 10/05 completed Not Available Not Available Not Available Vitals Date Recorded Body height Body mass index (BMI) Body weight Body temperature Oxygen saturation Oxygen saturation in Arterial blood by Pulse oximetry Heart rate Systolic And Diastolic Provider Name and Address Organization Details Last Updated DateTime 4 154.94 cm 60.3 kg/m2 847896. 4 g 98.1 [degF] 98 % 98 % 108 /min 130/80 mm[Hg] payton gregory [facility] & [place] 4 10:11:43 Date Recorded Body height Body mass index (BMI) Body weight Body temperature Oxygen saturation Oxygen saturation in Arterial blood by Pulse oximetry Heart rate Systolic And Diastolic Provider Name and Address Organization Details Last Updated DateTime 5 154.94 cm 47.3 kg/m2 878211. 81 g 96.9 [degF] 97 % 97 % 94 /min 120/70 mm[Hg] payton gregory [facility] & [place] 5 11:06:55 Date Recorded Body height Body mass index (BMI) Body weight Body temperature Oxygen saturation Oxygen saturation in Arterial blood by Pulse oximetry Heart rate Systolic And Diastolic Provider Name and Address Organization Details Last Updated DateTime 4 154.94 cm 57 kg/m2 423423. 18 g 97.1 [degF] 99 % 99 % 80 /min 114/72 mm[Hg] Kat Starr [facility] & [place] 4 09:55:49 Date Recorded Body height Body mass index (BMI) Body weight Body temperature Oxygen saturation Oxygen saturation in Arterial blood by Pulse oximetry Heart rate Systolic And Diastolic Provider Name and Address Organization Details Last Updated DateTime 4 154.94 cm 50.9 kg/m2 301928. 07 g 96.6 [degF] 95 % 95 % 108 /min 120/78 mm[Hg] payton gregory [facility] & [place] 4 11:57:20 Date Recorded Body height Body mass index (BMI) Body weight Body temperature Heart rate Systolic And Diastolic Provider Name and Address Organization Details Last Updated DateTime 3 154.94 cm 60.2 kg/m2 041042. 25 g 97.2 [degF] 72 /min 120/70 mm[Hg] [facility] [place] 3 10:26:28 Social History Question Answer Notes LastModified by Organizat ion Details LastModified Time Tobacco Smoking Status Current Every Day Smoker Luz Mims [facility] & [place] 05/25/2022 10:16:35 If You Are , What [...] Details LastModified Time Mother Cirrhosis of liver [email or web address] Not available 2022 00:43:21 Medical History Condition Response Obesity Y Anxiety/Depression Y Gynecological History Statement/Question Response Most Recent Mammogram 07/22/2023 Obstetrics History GPAL:G 0 P 0 0 0 0 Immunizations Vaccine Type Date Status Note Provider Nam e and Address Organization Details Recorded Time Tdap 04/15/2021 completed payton [place], [place] & [place] 01/04/2023 11:34:35 Past Encounters Encounter ID Performer Location Encounter Start Date Encounter Closed Date Diagnosis/Indication Diagnosis SNOMED-CT Code Diagnosis ICD10 Code Diagnosis Note [id number] Angela Scott NP [facility] [address] [place] [address] 05/04/2022 13:26:45 05/04/2022 14:04:28 Numbness of hand 836353008 R20.0 will check labshx of VItamin B12 and folate def.will also check CBC, CMP and [id number] ntials include carpal tunnel syndrome Numbness o f lower limb 414098452 R20.0 will check B12 and lumbar xraydiscol oration seems to be more of a Raynauds issue Low back pain 851755012 M54.50 will get a lumbar xray to determine if this is any lower spine pathology [id number] Angela Scott NP [facility] [address] [place] [address] 05/11/2022 13:20:48 05/11/2022 13:48:22 Leukocytosis 346996328 D72.829 Hypoglycemia 762111929 E 16.2 21000 Davide Lange MD [facility] [address] [place] [address] 05/25/2022 09:40:42 05/25/2022 11:00:08 Leukocytosis 587402742 D72.829 Labs on May 11, 2022 with white blood cell count 14.8. Red blood count 4.2. Hemoglobin 13.1 and hematocrit 41.0. MCV 96.2. Platelet count 466249. Neutrophil percentage of 49%. Absolute neutrophil count 7.25. Elevated white blood cell count not due to any specific white blood cell type. Patient presents for evaluation on May 25, 2022. Discussed repeat CBC today. Patient does have evidence of B12 deficiency as well as folic acid deficiency . Possible elevation of white blood cell count could be reactive to deficienci es. Patient started on monthly B12 injections . Current 1 pack-per-d ay smoker. Encourage patient to decrease cigarette use. Possible rise in white blood cell count secondary to tobacco abuse. Cobalamin deficiency 190 291933 E53.8 Labs on May 04, 2022 with low B12 level at 249. Low folate level at 2.1.Cecille smith has been started on monthly B12 injections . Folic acid deficiency 19 2512584 E53.8 Labs on May 04, 2022 with low B12 level at 249. Low folate level at 2.1. Tobacco user 696184339 Z 72.0 One pack-per-d ay smoker currently. Concern white blood cell count elevation secondary to smoking. Will follow-up labs. [id number] Gisela Gonzalez DNP, FLOTATION TANK OPERATOR-C, [facility] [address] [facility] [address] [place] [address] 08/26/2022 09:44:27 08/26/2022 10:15:48 Nausea and vomiting 22927898 R11.2 Viral syndrome 751155541 B34.9 [id number] Angela Scott NP [facility] [address] [place] [address] 01/04/2023 11:22:23 01/04/2023 12:14:41 Morbid obesity 569618734 E66.01 Discussed bariatric surgery with patientI think patient would benefit greatly from this surgeryWe will start monitoring patient's weight once a monthEncou rage patient to get online to [place] [facility] and get set up for the online seminar to get the process started Body mass index 40+ - severely obese 330089194 Z68.43 Vitamin B1 2 deficiency (non anemic) 71199288 E53.8 check vitamin B level Fatigue 79444472 R53.83 check CBC, CMP and thyroid Screening for cardiovascular system disease 551656657 Z13.6 check lipids Bipolar disorder 3024902 4 F31.9 refill meds Generalize d anxiety disorder 11270489 F41.1 refill medsstable Attention deficit hyperactivity disorder, 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 stable, refill med [id number] Angela Scott NP [facility] Medicine- Dept [address] [place] [address] [place] [address] 02/04/2023 15:49:21 02/04/2023 16:38:17 Abscess of breast 73336157 N61.1 will recheck right breast U/S to ensure resolution of abscesspt is afraid that it is still present despite I&D and antibiotic therapy Generalize d anxiety disorder 40840009 F41.1 stable on Prozacrefi lls Morbid obesity 439697436 E66.01 pt going to work on diet changes and cut back on soda and snackswork ing intermitte nt fasting and carb cyclingpt is currently drinking 12 Ale8s daily [id number] Angela Scott NP [facility] Medicine- Dept [address] [place] [address] [place] [address] 04/22/2023 09:34:57 04/22/2023 10:46:03 Peripheral edema 986678585 R60.9 start HCTZ 25 mg to flush fluid Bipolar disorder 6134533 4 F31.9 refill meds Generalize d anxiety disorder 26086538 F41.1 stable on Prozacrefi lls Morbid obesity 624851633 E66.01 up 14 lbspt is drinking more watercut back on Annmarie-8 consumptio n Dyspnea on exertion 6084 5006 R06.09 check PFTpt is a smoker Mass of right breast 892 2049652 7387903 N63.10 order diag mammogram Vitamin B1 2 deficiency (non anemic) 85154674 E53.8 check b12 Diabetes m ellitus screening 209941838 Z13.1 [id number] Angela Scott NP [facility]- Dept [address] [place] [address] 07/16/2023 10:10:40 07/16/2023 11:05:09 Bipolar disorder 69719282 F31.9 refill medsstable Generalize d anxiety disorder 90361644 F41.1 stable on Prozac and Busparrefi lls today Peripheral edema 8984516 00 R60.9 HCTZ not helping muchwill switch to Lasix QODwill give potassium with Lasix Discharge from right nipple 3476746354 1439267 N64.52 presents x 1 monthhx of right breast abscess with I&D at [facility] order prolactin level and thyroidpt is getting scheduled for mammogram Vitamin B1 2 deficiency (non anemic) 35060265 E53.8 refill med Dyspnea on exertion 6084 5006 R06.09 resend PFT to [facility] Prediabetes 297144713 R7 3.03 recheck A1C--5.7% [id number] Shelley Hong MD [facility] [address] [facility] [id number] 10/05/2023 09:58:32 10/05/2023 11:30:51 Peripheral edema 673981938 R60.9 Mass of right breast 252 6637017 9901205 N63.10 Will refer her back to general surgeon as with biopsy coming back 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 Impaired g lucose tolerance 9396558 R73.03 She is borderline diabetic. Morbid obesity 712737409 E66.01 Did discuss this in detail. Discussed bariatric surgery, but she wishes to not stop smoking. Feel she would not do well with adipex as she reports her blood pressure numbers are going up. Tobacco de pendence caused by cigarettes 9991175579 0750449 F17.210 Did discuss in detail today. [id number] Angela Scott NP [facility] Family Medicine- Dept [address] [employer] [address] 01/26/2024 09:49:18 01/26/2024 10:13:29 Mass of right breast 7890830055 1765506 N63.10 enc. her to call Dr. Ricci appt with the [facility] on 02/14/24 start Levaquin Dark yellow urine 090313 001 R39.89 urine has trace of blood but otherwise normal [id number] Angela Scott NP [facility]- Dept [address] [facility] [place] [address] 06/15/2024 11:36:10 06/15/2024 12:16:51 Dysmenorrhea 851367421 N94.6 strongly enc. pt to make appt with PIE CRIMPING MACHINE OPERATOR to discuss an uterine ablationno t a candidate for control due to tobacco usedecline s Mirena/Nex planon Irregular periods 991215 07 N92.6 pt has lost about 50 lbsthis may be contributi ng to her cycle irregulari ty Bipolar disorder 3264756 4 F31.9 refill medsneeds to make f/u with her linseed oil refiner [id number] Angela Scott NP [facility] Family Medicine- Dept [address] [place] [address] 12/27/2024 10:38:23 12/27/2024 11:37:01 Discharge from right nipple 9662927410 8383203 N64.52 will refer to [facility]--Ellen Mir CBC and CMP Attention deficit hyperactivity disorder, predominantly inattentive type 32280482 F90.0 stable, refill med Vitamin B1 2 deficiency (non anemic) 79938390 E53.8 recheck Vitamin B12 and folate Prediabetes 736242847 R7 3.03 recheck A1C Screening for cardiovascular system disease 716837307 Z13.6 check lipids Fatigue 43401168 R53.83 check thyroid Health Concerns Section Related Observation LastModified by Organization Detai ls LastModified Time None Recorded Concern Status LastModified by Organization Details LastModified Time None Recorded Advance Directives Directive None Recorded Payers Insurance Date Sequence Insurance Name Policy Number Policy Centeno Covered Member ID Centeno Member ID Guarantor Name 01/03/2021 1 [employer] (MEDICAID REPLACEMENT - HMO) [id number] Mohini Forde [id number] Mohini Forde 02/13/2021 1 [facility] (MEDICAID HMO) Mohini Forde [id number] Mohini Forde 12/26/2024 1 [employer] [facility] (MEDICAID HMO) Mohini Forde [id number] Mohini Forde Notes Date Note Type Note Provider Name and Address Organization Details Recorded Time 07/16/2023 text/html Patient presents today in the clinic for follow-up on her routine health issues. She states she needs refills on some of her medications. She states the HCTZ did help a little bit but she still having lot of swelling in her legs in her feet. She has not gained any weight since her last visit. She states she does not eat a lot of salt. She wants to see what else she could take to make the fluid get off of her faster. She states that she has not been set up for her mammogram yet. We did rescind this to [facility]. Patient states that her new complaint today is right breast nipple discharge. Been present for approximately 1 month. Patient states she is not really sure what is causing it. She has had a breast abscess in this breast a few months ago. Angela Scott NP [address] [place] [address], [address], [place], [address], [facility] & [place] 08/03/2023 12:57:01 10/05/2023 text/html She comes to the office today for follow up on abnormal mammogram/ultrasoun d/core biopsy. 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 She reports she has continued right breast discharge that can be any color from green/yellow to even bloody and present since January 2023. Has in the past had surgery for mastitis on the both breast and was due to nipple piercing x2. Shelley Hong MD [address] [place] [address], [address], [place], [address], [facility] & [place] 10/05/2023 10:41:36 01/26/2024 text/html Patient presents today in the clinic with complaints of tenderness in her right breast. Patient has a chronic inflammatory process in milk ducts in her right breast. She recently saw Dr. Álvarez who [facility] She states she has appointment with them February 13. She states that the past few days it has got sore and she is having some yellow and green discharge. This area has been biopsied and it was negative for cancer. She has had a mammogram and ultrasounds done. Patient has also had to have the area drained. She is afraid that is what is going to have to happen before she sees the specialist. She denies any fever chills. She also states that she has had some really dark urine lately and has noticed a little bit of discomfort in her pelvis. She has not sure she has a UTI because she does not have any burning but she would like to have her urine checked. Angela Scott NP [address] [facility], [address], [place], [address], [facility] & [place] 01/26/2024 13:31:50 06/15/2024 text/html Patient presents today in the clinic to discuss her menstrual cycle. She states the past few months her cycle has been coming earlier and earlier by around 5 days. She states that she is also noticed that her cycle is becoming more painful. She states she has not bleeding any heavier but it is noticeably different with cramping. Patient is in a homosexual relationship at this time. Patient states that she is worked on weight loss and has lost 50 lb since September. Patient states that she has not interested in having a Mirena or Nexplanon. Patient is not a candidate for control due to her tobacco use. Angela Scott NP [address] [facility] [address], [address], [place], [address], [facility] & [place] 06/15/2024 13:06:12 12/27/2024 text/html Patient presents today in the clinic for routine follow-up on her chronic health issues. Patient states that about 3 weeks ago she started having more nipple discharge and pain in her breast. She does have a history of an abscess in her right breast. She last saw [facility] in 2023 and was on a course of doxycycline. She states that this has never fully resolved over the past 2 years. She has had 2 I and D's with Dr. Álvarez in [facility]. Patient states she just wants this taken care of. She is open to seeing a new provider. Patient is due for labs. She states that she was seeing Krystal Philippe in [place] for her psychiatric issues but she is now moved. She would like to have me refill her medicines. She is stable at this time. Angela Scott NP [address] [facility] [address], [address], [place], [address], [facility] & [place] 12/27/2024 15:08:48 OBGyn Episode No OBEpisode recorded.
[2025-02-23 10:47] VITALS: PULSE 59; RESP 18; O2SAT 100
--- NOTE | 2025-02-23 10:49 | CT_ITS ---
FINAL REPORT CLINICAL HISTORY: Head/Neck Pain after chiro adjustment COMPARISON: None FINDINGS: CT NECK ANGIO, WITHOUT AND WITH CONTRAST TECHNIQUE: Thin section axial CT with contrast with multiplanar 3D MIP reconstruction. This study was performed with techniques to keep radiation doses as low as reasonably achievable, (ALARA). Individualized dose reduction techniques using automated exposure control or adjustment of mA and/or kV according to the patient's size were employed. NASCET criteria and technique was utilized during interpretation. FINDINGS: Aortic arch: Arch shows no significant narrowing. Great vessel origins are widely patent. Right carotid: No significant stenosis is seen of the cervical common or internal carotid artery. Left carotid: No significant stenosis is seen of the cervical common or internal carotid artery. Vertebrals: The vertebral arteries are codominant. No significant stenosis is present. IMPRESSION: No significant stenosis of the cervical carotid arteries This study was performed using automated techniques to achieve radiation exposure as low as reasonably Reviewed, Interpreted and Dictated by Ar Winters MD Transcribed by Angelica Dominguez Authenticated and [facility]
--- NOTE | 2025-02-23 10:49 | CT_ITS ---
FINAL REPORT TECHNIQUE: Noncontrast exam This study was performed with techniques to keep radiation doses as low as reasonably achievable, (ALARA). Individualized dose reduction techniques using automated exposure control or adjustment of mA and/or kV according to the patient's size were employed. CLINICAL HISTORY: Head/Neck Pain after chiro adjustment COMPARISON: None FINDINGS: CT HEAD: No abnormal density is seen. Ventricles are normal. There is no hemorrhage. No mass effect is seen. Bone windows show no evidence of fracture. IMPRESSION: No acute findings Reviewed, Interpreted and Dictated by Ar Winters MD Transcribed by Angelica Dominguez Authenticated and [facility]
--- NOTE | 2025-02-23 10:49 | CT_ITS ---
FINAL REPORT CLINICAL HISTORY: Head/Neck Pain after chiro adjustment COMPARISON: None FINDINGS: CTA HEAD TECHNIQUE: Thin section axial CT with contrast with 3D MIP reconstruction This study was performed with techniques to keep radiation doses as low as reasonably achievable, (ALARA). Individualized dose reduction techniques using automated exposure control or adjustment of mA and/or kV according to the patient's size were employed. FINDINGS: No aneurysm is seen. Major intracranial vessels are patent without significant stenosis. . IMPRESSION: Unremarkable This study was performed using automated techniques to achieve radiation exposure as low as reasonably achievable Reviewed, Interpreted and Dictated by Ar Winters MD Transcribed by Angelica Dominguez Authenticated and [facility]
[2025-02-23] MEDS: KETOROLAC 30MG/ML VIAL 15 MG IV (10:55)
[2025-02-23] MEDS: METHOCARBAMOL 500MG TABLET 1500 MG PO (10:56)
[2025-02-23] MEDS: 0.9 % SODIUM CHLORIDE 50 ML VIAL IV (11:04)
[2025-02-23] MEDS: SODIUM CHLORIDE 0.9% 10ML SYR (RAD ONLY) 10 ML IV (11:05)
[2025-02-23] MEDS: IOPAMIDOL-370 (76%);100ML BOTTLE 100 ML IV (11:05)
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
[2025-02-23 11:30] VITALS: BP 107/72; PULSE 54; RESP 17; O2SAT 99
--- NOTE | 2025-02-23 12:12 | PC.NURSE ---
called [facility] per Dr Newman for pt transfer per GI bleed. [facility] advised Dr Velasquez will call back. All images have been power shared
[2025-02-23 12:27] VITALS: BP 97/61; PULSE 89; RESP 19; TEMP 36.6; O2SAT 98
== END 2025-02-23 12:28 | disposition home or self-care (01) ==
PROVIDERS: Emergency Provider Student in an Organized Health Care Education/Training Program; PCP Nurse Practitioner Family
DX: M54.2 Cervicalgia (principal); M62.838 Other muscle spasm; R51.9 Headache, unspecified; F17.210 Nicotine dependence, cigarettes, uncomplicated
CPT/HCPCS: 70450; 70496; 70498; 96374; 99285; J1885; Q9967

== ENCOUNTER 2025-05-15 09:58 | Emergency (ER) | payer OTHER, SELFPAY ==
[2025-05-15 10:09] VITALS: BP 163/85; PULSE 84; RESP 18; TEMP 37; O2SAT 98; BMI 48.2
--- OUTSIDE RECORDS SUMMARY | 2025-05-15 10:09 | XMS_ITS | Clinical Summary ---
Author Organization Healthcare Address [address] [place] [address] Care Team Providers Care Air Brake Worker Name Role Phone Katina Scott APRN Primary Care Provider [phone]- [phone] Allergies No known active allergies Medications * [...] 1 (one) time each day. 01/19/2024 Active Active Problems Problem Noted Date Diagnosed Date Tobacco use disorder 2024 Encounters Date Type Department Care Team Description 04/25/2025 Refill [facility] [address] [place] [address] Gisel Villalba APRN Chronic mastitis of right breast from Last 3 Months Immunizations Immunization Administration Dates Next Due Tdap 04/15/2021 Social History Tobacco Use Types Packs/Day Years Used Date Smoking Tobacco: Every Day Cigarettes 1 20.2 Started: 02/13/2005 Smokeless Tobacco: Never Tobacco Cessation:Ready [...] Care Team (Late st Contact Info) Description 08/13/2025 9:50 AM EST Appointment [facility] [address] [place] [address] 08/13/2025 10:30 AM EST Office Visit [facility] [address] [facility] [place] [address] Jazmin Brink, PA [address] [address] Health Maintenance Due Date Last Done Comments [facility]-HIV Screening 1991 [facility]-Hepatitis C Screening 1991 [facility]-/Child/Adol SDOH Screenings 1991 [facility]-Varicella Vaccines (1 of 2 - 13+ 2-dose series) 02/15/2004 [facility]- SDOH Screenings 2009 [facility]-Adult SDOH Screenings 2009 [facility]-Hepatitis B Vaccines (1 of 3 - 19+ 3-dose series) 2010 [facility]-Pneumococcal Vaccine: Pediatrics (0 to 5 Years) and At-Risk Patients (6 to 49 Years) (1 of 2 - PCV) 2010 HPV Vaccines (1 - 3-dose SCD M series) 2018 [facility]-Pap Smear 10/12/2020 10/12/2017, 06/19/2013 [facility]-Cervical Cancer Screening 2021 [facility]-HPV/Cotest 2021 [facility]-Depression Screening 02/13/2025 2024 [facility]-LPADD-88 Vaccine (1 - 2023- season) 2025 [facility]-Influenza Vaccine (#1) 2025 [facility]-DTaP,Tdap,and Td Vaccine [...] on patient's age to complete this topic Insurance [address] [place] [id number] [facility] MEDICAID Care Teams Air Brake Worker Relationship Specialty Start Date End Date Katina Scott APRN [address] [place] [address] [facility] - General 02/14/24
--- OUTSIDE RECORDS SUMMARY | 2025-05-15 10:09 | XMS_ITS | Encounter Summary ---
Author Organization Healthcare Address [address] [place] [id number] Care Team Providers Care Ammonia Distiller Name Role Phone Katina Scott APRN Primary Care Provider [phone]- [phone] Reason for Visit * Reason Comments Med Refill Encounter Details Date Type Department Care Team (Late Contact Info) Description 04/25/2025 Refill [facility] [address] [place] [address] Gisel Villalba APRN [address] [facility] [address] [place] [address] Chronic mastitis of right breast Social History Tobacco Use Types Packs/Day Years Used Date Smoking Tobacco: Every Day Cigarettes 1 20.2 Started: 02/13/2005 Smokeless Tobacco: Never Alcohol Use [...] Info) Description 08/13/2025 9:50 AM EST Appointment [facility] [address] [facility] [address] [place] [address] 08/13/2025 10:30 AM EST Office Visit [facility] [address] [facility] [place] [address] Jazmin Brink PA [address] [address] documented as of this encounter Visit Diagnoses Diagnosis Chronic mastitis of right breast documented in this encounter Additional Health Concerns Assessment Noted Time A fall risk assessment has been complete d for the patient 01/24/2025 10:55 AM EDT A Body Mass Index follow-up plan has been documented for the patient 01/25/2025 12:22 PM EDT documented as of this encounter Care Teams Ammonia Distiller Relationship Specialty Start Date End Date Katina Scott APRN [address] [place] [address] PCP - General 02/14/24 documented as of this encounter
--- NOTE | 2025-05-15 10:16 | XR_ITS ---
FINAL REPORT TECHNIQUE: Chest PA & Lateral CLINICAL HISTORY: Nonspecific cough COMPARISON: None FINDINGS: 2 views of the chest were performed. The heart size is normal. The mediastinum is within normal limits. There is no acute cardiopulmonary process. There are no pleural effusions. There is no pneumothorax. The bony thorax appears intact. IMPRESSION: No acute cardiopulmonary process. Reviewed, Interpreted and Dictated by Pro Hernández MD Transcribed by Emily Randolph Authenticated and [facility]
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
[2025-05-15 10:31] VITALS: BP 130/94; PULSE 76; O2SAT 96
[2025-05-15 10:45] VITALS: BP 130/94; PULSE 63; O2SAT 100
[2025-05-15 11:08] LABS: Coronavirus 19, PCR Not Detected (NotDetected); Influenza A, PCR Not Detected (NotDetected); Influenza B, PCR Not Detected (NotDetected)
[2025-05-15 11:37] VITALS: BP 131/74; PULSE 56; O2SAT 99
[2025-05-15 12:00] VITALS: BP 127/83; PULSE 66; O2SAT 99
[2025-05-15 12:40] VITALS: BP 133/82; PULSE 70; RESP 18; TEMP 37.1; O2SAT 98
== END 2025-05-15 12:41 | disposition home or self-care (01) ==
PROVIDERS: Emergency Provider Student in an Organized Health Care Education/Training Program; PCP Nurse Practitioner Family
DX: R05.2 Subacute cough (principal); F17.210 Nicotine dependence, cigarettes, uncomplicated
CPT/HCPCS: 71046; 87631; 99283; 99284

== ENCOUNTER 2025-06-12 09:31 | Outpatient (CLI) | payer OTHER, SELFPAY ==
--- NOTE | 2025-06-12 09:34 | XR_ITS ---
FINAL REPORT CLINICAL HISTORY: cough COMPARISON: 05/15/2025 FINDINGS: 2 views of the chest were obtained . The heart is normal in size. The mediastinum is within normal limits. The lungs are clear. There is no pneumothorax. Osseous structures are unremarkable. IMPRESSION: No acute cardiopulmonary process. Reviewed, Interpreted and Dictated by Pro Hernández MD Transcribed by Sophie Torres Authenticated and [facility]
--- OUTSIDE RECORDS SUMMARY | 2025-06-12 09:49 | XMS_ITS | Data Portability ---
Author Organization [employer] [facility] Address [address] [place] [address] Care Team Providers Care Offset Press Assistant Name Role Phone ANGELA MCCOY Primary Care Provider Assessment Encounter Date Assessment Date Assessment LastModified by Organization Details LastModified Time 06/28/2024 06/28/2024 unremarkable annual exam. Pap smear performed. Exam was very challenging secondary to the patient's habitus and guarding. We discussed follow-up for adequate assessment of internal genitalia in 1 to 2 weeks. We will also evaluate her dysmenorrhea and menorrhagia at that time. She will call for results of her Pap smear. [email or web address] Not available 06/28/2024 14:42:19 Plan of Treatment Reminders Order Date Submit Date Provider Last Modified By Organization Details Last Modified Time Details Appointments None recorded. Lab PPD (purified protein derivative) , skin test 2024 025 [email or web address] 5 [facility], [address] [place] [address], [id number], 14:28:54 pap, IG + reflex HPV 2023 024 VAR[facility], [address] [place] [address], [place], [address], 4 16:09:51 Referral None recorded. Procedures None recorded. Surgeries None recorded. Imaging None recorded. Medication Orders tuberculin PPD 5 tub. unit/0.1 mL intradermal injection solution 2024 025 [email or web address] 5 [id number], [address], [place], [address], 14:28:54 Patient TargetsNo targets recorded. Patient InstructionsNo instructions recorded. Reason for Referral None Reported. Results Created Date Observation Date Name Description Value Unit Range Abnormal Flag Note LastModifiedBy Organization Detail LastModifiedTime 06/28/2006/29/2024 IGP,A PTIMA HPV,A GE GDLN age gdln acog testing Not Available [facility] ([facility]) [address] [facility], [place], [address], 07/07/2024 16:09:51 06/28/20 24 06/30/2024 IGP,A PTIMA HPV,A GE GDLN HPV aptima Negati ve negati ve This nucle ic acid ampli ficat ion test detec ts fourt een high- risk HPV types (16,1 8,31, 33,35 ,39,4 5,51, 52,56 ,58,5 9,66, 68) witho ut diffe renti ation . Not Available [facility] ([facility]) [address] [facility], [place], [address], 07/07/2024 16:09:51 06/28/20 24 07/07/2024 IGP,A PTIMA HPV,A GE GDLN diagnosis: Commen t NEGAT DONALD FOR INTRA EPITH ELIAL LESIO N OR JUNO AVINA . REACT DONALD CELLU LAR STARKEY ES AND/O R REPAI R ARE PRESE NT. PREDO MINAN CE OF COCCO BACIL LI CONSI STENT WITH SHIFT IN VAGIN AL LUCIEN IS PRESE NT. Not Available [facility] ([facility]) [address] [facility], [place], [address], 07/07/2024 16:09:51 06/28/20 24 07/07/2024 IGP,A PTIMA HPV,A GE GDLN specimen adequacy: Commen t Satis facto ry for evalu ation . Endoc ervic al and/o r squam ous metap lasti c cells (endo cervi abner compo nent) are prese nt. Not Available [facility] ([facility]) [address] [place], [address], 07/07/2024 16:09:51 06/28/20 24 07/07/2024 IGP,A PTIMA HPV,A GE GDLN clinician provided ICD10: Ale smith Z01.4 19 Not Available [facility] ([facility]) [address] [place], [address], 07/07/2024 16:09:51 06/28/20 24 07/07/2024 IGP,A PTIMA HPV,A GE GDLN performed by: Ale Ojeda , Cytot johanna smith (ASCP ) Not Available [facility] ([facility]) [address] [place], [address], 07/07/2024 16:09:51 06/28/20 24 07/07/2024 IGP,A PTIMA HPV,A GE GDLN electronical ly signed by: Ale diego MD, Patho logis t Not Available [facility] ([facility]) [address] [place], [address], 07/07/2024 16:09:51 06/28/20 24 07/07/2024 IGP,A PTIMA HPV,A GE GDLN . . Not Available [facility] ([facility]) [address] [place], [address], 07/07/2024 16:09:51 06/28/20 24 07/07/2024 IGP,A PTIMA HPV,A GE GDLN pathologist provided ICD10: Ale smith R87.5 Not Available [facility] ([facility]) [address] [place], [address], 07/07/2024 16:09:51 06/28/20 24 07/07/2024 IGP,A PTIMA HPV,A GE GDLN note: Commen t The Pap smear is a scree esteban test desig obi to aid in the detec tion of dangelo ligna nt and malig nant condi tions of the uteri ne cervi x. It is not a diagn ostic proce dure and shoul d not be used as the sole means of detec ting cervi abner cance r. Both false -posi tive and false -nega tive repor ts do occur . Not Available [facility] ([facility]) [address] [place], [address], 07/07/2024 16:09:51 06/28/20 24 07/07/2024 IGP,A PTIMA HPV,A GE GDLN test methodology: Ale t This liqui d based ThinP rep(R ) pap test was scree obi with the use of an image guide tha torres. Not Available [facility] ([facility]) [address] [facility], [place], [address], 07/07/2024 16:09:51 06/28/20 24 07/07/2024 IGP,A PTIMA HPV,A GE GDLN HPV genotype reflex Commen t Crite jack not met, HPV Genot ype not perfo rmed. Not Available [facility] ([facility]) [address] [place], [address], 07/07/2024 16:09:51 05/17/20 25 05/17/2025 PPD (buzz fied prote in deriv ative ), skin test TB negati ve Not Available [facility] [address] [facility], [place], [address], 05/15/2025 08:26:55 Result Notes None recorded. Procedures Surgical History Date Name Laterality Status Provider Name and Address Organization Details Recorded Time Tubal Ligation completed JACKY [employer] 06/28/2024 13:49:00 cholecystectomy completed [employer] 06/28/2024 13:49:08 Breast Surgery completed JACKY [employer]G [email or web address] 06/28/2024 13:49:29 Imaging Results None recorded. Procedure Notes None recorded. Medical Equipment None Reported. Allergies No known drug allergies Medications Name Sig Start Date Stop Date Status Note LastModified by Organization Details LastModified Time fluoxetine 40 mg capsule TAKE 1 CAPSULE BY MOUTH EVERY DAY FOR 90 DAYS 04/19 completed Not Available Not Available Not Available lamotrigine 150 mg tablet TAKE 1 TABLET BY MOUTH EVERY DAY 04/19 completed Not Available Not Available Not Available tuberculin PPD 5 tub. unit/0.1 mL intradermal injection solution Inject 0.1 mL by intraderm al route. 2024 active Not Available Not Available Not Avai lable azithromyci n 250 mg tablet TAKE 2 TABLETS BY MOUTH ON DAY 1, AND THEN TAKE 1 TABLET BY MOUTH ONCE A DAY ON DAY 2 THROUGH DAY 5 04/19 completed Not Available Not Available Not Available phenazopyri dine 200 mg tablet TAKE 1 TABLET BY MOUTH EVERY 8 HOURS NEEDED FOR PAIN 04/19 completed Not Available Not Available Not Available potassium chloride ER 10 mEq tablet,exte nded release TAKE 1 TABLET BY MOUTH EVERY OTHER DAY 04/19 completed Not Available Not Available Not Available metronidazo le 500 mg tablet TAKE 1 TABLET (500 MG) BY MOUTH 3 TIMES A DAY FOR 14 DAYS 04/19 completed Not Available Not Available Not Available folic acid 400 mcg tablet TAKE 1 TABLET BY MOUTH EVERY DAY FOR 30 DAYS 04/19 completed Not Available Not Available Not Available sulfamethox azole 800 mg-trimetho prim 160 mg tablet TAKE 1 TABLET BY MOUTH TWICE A DAY FOR 2 WEEKS 04/19 completed Not Available Not Available Not Available doxycycline monohydrate 100 mg tablet 1 TABLET TWICE A DAY X 14 DAY WITH A FULL GLASS OF WATER & DO NOT LIE DOWN FOR AT LEAST 30 MIN AFTER 04/19 completed Not Available Not Available Not Available lamotrigine 25 mg tablet TAKE 2 TABLETS BY MOUTH EVERY DAY 04/19 completed Not Available Not Available Not Available ketorolac 10 mg tablet TAKE 1 TABLET BY MOUTH EVERY 8 HOURS NEEDED FOR PAIN FOR 5 DAYS 04/19 completed Not Available Not Available Not Available amitriptyli ne 25 mg tablet TAKE 1 TABLET BY MOUTH EVERY EVENING 04/19 completed Not Available Not Available Not Available methocarbam ol 750 mg tablet TAKE 2 TABLETS BY MOUTH EVERY 8 HOURS FOR 7 DAYS FOR SPASM MAX DAILY DOSE IS 4500 MG 04/19 completed Not Available Not Available Not Available cephalexin 500 mg capsule TAKE 1 CAPSULE (500 MG) BY MOUTH 4 (FOUR) TIMES A DAY FOR 14 DAYS. 04/19 completed Not Available Not Available Not Available buspirone 10 mg tablet TAKE 1 TABLET BY MOUTH EVERY EVENING FOR ANXIETY 04/19 completed Not Available Not Available Not Available furosemide 20 mg tablet TAKE 1 TABLET BY MOUTH EVERY OTHER DAY 04/19 completed Not Available Not Available Not Available levofloxaci n 500 mg tablet TAKE 1 TABLET EVERY 24 HOURS BY MOUTH WITH MEAL(S) FOR 7 DAYS. 04/19 completed Not Available Not Available Not Available methylpredn isolone 4 mg tablets in a dose pack TAKE BY MOUTH DIRECTED ON INSIDE OF PACKAGE FOR 6 DAYS 04/19 completed Not Available Not Available Not Available ondansetron 4 mg disintegrat ing tablet DISSOLVE 1 TABLET IN MOUTH EVERY 8 HOURS NEEDED FOR NAUSEA AND VOMITING FOR 4 DAYS 04/19 completed Not Available Not Available Not Available lamotrigine 100 mg tablet TAKE 1 TABLET EVERY DAY 04/19 completed Not Available Not Available Not Available amoxicillin 875 mg-potassiu m clavulanate 125 mg tablet TAKE 1 TABLET BY MOUTH TWICE A DAY FOR 10 DAYS 04/19 completed Not Available Not Available Not Available ciprofloxac in 0.3 %-dexametha sone 0.1 % ear drops,suspe nsion INSTILL 2 DROPS INTO LEFT EAR TWICE A DAY FOR 7 DAYS 04/19 completed Not Available Not Available Not Available bupropion HCl XL 300 mg 24 hr tablet, extended release TAKE 1 TABLET BY MOUTH EVERY DAY 04/19 completed Not Available Not Available Not Available nitrofurant oin monohydrate /macrocryst als 100 mg capsule TAKE 1 CAPSULE BY MOUTH TWICE DAILY WITH FOOD FOR 7 DAYS 04/19 completed Not Available Not Available Not Available lamotrigine 04/19 completed Not Available Not Available Not Available amitriptyli ne 04/19 completed Not Available Not Available Not Available buspirone 04/19 completed Not Available Not Available Not Available bupropion HCl 04/19 completed Not Available Not Available Not Available lamotrigine ER 100 mg tablet,exte nded release 24 hr TAKE 1 TABLET BY MOUTH EVERY DAY 04/19 completed Not Available Not Available Not Available guaifenesin ER 600 mg tablet, extended release 12 hr TAKE 1 TO 2 TABLETS BY MOUTH TWICE A DAY NEEDED FOR CONGESTIO N 04/19 completed Not Available Not Available Not Available Vraylar 3 mg capsule TAKE 1 CAPSULE BY MOUTH EVERY DAY 04/19 completed Not Available Not Available Not Available Vitals Date Recorded Body weight Body mass index (BMI) Body height Oxygen saturation Oxygen saturation in Arterial blood by Pulse oximetry Heart rate Body temperature Systolic And Diastolic Provider Name and Address Organization Details Last Updated DateTime 256274. 42 g 48.1 kg/m2 156.21 cm 97 % 97 % 76 /min 98.4 [degF] 108/62 mm[Hg] Debora Shukla [email or web address], [email or web address]. 08:26:44 Social History Question Answer Notes LastModified by Organizat ion Details LastModified Time Tobacco Smoking Status Current Every Day Smoker Debora chapa [employer]. 04/19/2025 08:24:32 What Is Your Level Of Caffeine Consumption? Heavy [email or web address] Information not available 04/19/2025 What Type Of Diet Are You Following? REGULAR [email or web address] Information not available 04/19/2025 What Is The Highest Grade Or Level Of School You Have Completed Or The Highest Degree You Have Received? [id number] [email or web address] Information not available 04/19/2025 Do You Engage In Moderate/heavy Exercise (e.g. Brisk Walk, Jogging, Strength Training, Etc)? Yes [email or web address] Information not available 04/19/2025 What Was The Date Of Your Most Recent Tobacco Screening? 04/19/2025 Information not available 04/19/2025 Do You Use Protection During Sex? No Information not available 06/28/2024 Do You Use Protection Against STDs? No Information not available 06/28/2024 What Is Your Relationship Status? Information not available 06/28/2024 Are You Sexually Active? Yes Information not available 06/28/2024 At What Age Did You Start Smoking Tobacco? 15 [email or web address] Information not available 04/19/2025 How Much Tobacco Do You Smoke? 1 PPW [email or web address] Information not available 04/19/2025 How Many Years Have You Smoked Tobacco? 20 [email or web address] Information not available 04/19/2025 What Contraceptive Method Was Reported At Start Of This Visit? Female Sterilization Information not available 06/28/2024 Do You Have Any Dietary Restrictions? No [email or web address] Information not available 04/19/2025 Sex: Female Functional Status Question Answer Note LastModified by Organizat ion Details LastModified Time Do you use any illicit or recreational drugs? No [email or web address] Information not available 04/19/2025 What is your level of alcohol consumption? None [email or web address] Information not available 04/19/2025 Are you currently employed? Yes [email or web address] Information not available 04/19/2025 Do you have transportation difficulties? No Information not available 04/19/2025 Are you able to care for yourself independently? Yes Information not available 04/19/2025 Mental Status Question Answer Note LastModified by Organization D etails LastModified Time Do you feel stressed (tense, restless, nervous, or anxious, or unable to sleep at night)? [id number] [email or web address] Information not available 04/19/2025 Family History Nothing Reported. Medical History Condition Response Emergency room visit since last appointm ent. N Anxiety Disorder Y Hospitalizations N Mental Illness Y Depression/ depression Y Gynecological History Statement/Question Response Abnormal Pap Y Flow Moderate STIs/STDs N HPV Vaccine N Duration of Flow (days) 28 Current Control Method Tubal Ligat ion Age at Menarche 14 Sexually Active? Y Menses Monthly Y Date of Last Pap Smear Sexual Problems? Y LMP Approximate Obstetrics History GPAL:G 3 P 3 0 0 3 Type Value Full Term 3 Spontaneous 0 Living 3 Total 3 Immunizations Vaccine Type Date Status Note Provider Nam e and Address Organization Details Recorded Time Tdap 04/15/2021 completed Not Available [facility] 05/15/2025 08:27:23 Past Encounters Encounter ID Performer Location Encounter Start Date Encounter Closed Date Diagnosis/Indication Diagnosis SNOMED-CT Code Diagnosis ICD10 Code Diagnosis IMO Codes Diagnosis Note [id number] TIAGO TAVERAS MD [facility] [address] [facility] [place] [place] [address] 06/28/2024 13:41:36 06/28/2024 15:08:12 Gynecologic examination 76278242 Z01.775 [id number] ROMULO WONG NP [facility], [place] [address] [place] [address] 04/19/2025 08:15:42 04/19/2025 09:57:29 Physical examination 9506555 Z00.00 [id number] Discussed healthy habits, encouraged smoking cessation. [id number] Halley Russ PA-C [address] [address] 05/15/2025 08:26:18 05/18/2025 13:23:28 Injection given 527010191 Z92.29 [id number] Health Concerns Section Related Observation LastModified by Organization Detai ls LastModified Time None Recorded Concern Status LastModified by Organization Details LastModified Time None Recorded Advance Directives Directive None Recorded Payers Insurance Date Sequence Insurance Name Policy Number Policy Centeno Covered Member ID Centeno Member ID Guarantor Name 05/18/2025 1 [facility] (MEDICAID HMO) Mohini Forde [id number] Mohini Forde 06/28/2024 1 *SELF PAY* Kye Forde Notes Date Note Type Note Provider Name and Address Organization Details Recorded Time 06/28/2024 text/html Annual GYNReport ed by PatientROS as noted in the HPI The patient is a 34-year-old multiparous female morbidly obese who presents with a chief complaint of #1 needing an annual exam #2 dysmenorrhea and menorrhagia. She is recently lost 70 pounds. She attributes this to going back to work. Her medical history is notable for obesity and borderline personality disorder. Medications include lamotrigine amitriptyline bupropion and BuSpar surgical history is notable for cholecystectomy and I&D of a breast abscess she is also had a bilateral salpingectomy no known drug allergies she is a smoker she is advised to stop she does have a history of an abnormal Pap smear with minimal follow-up she has not had a Pap for 8 years we will do a Pap smear today. She will follow-up for evaluation of dysmenorrhea and menorrhagia. Obstetric history is notable for 3 pregnancies and 3 assisted vaginal deliveries no issues family history is negative for gynecologic carcinoma defects genetic abnormalities. TIAGO TAVERAS MD [address] [place], [address], [email or web address], [email or web address]. 06/28/2024 14:42:43 04/19/2025 text/html ROS as noted in the HPI Presents today for work physical. Denies acute concerns. Denies all medication. Reports past medical history of anxiety, depression, and borderline personality disorder. Current smoker, denies drug, alcohol, vape use. Denies current medications. ROMULO WONG NP [address] [place], [address], [email or web address], [email or web address]. 04/19/2025 09:57:13 OBGyn Episode Ob Episode Information Episode Created Date Number of Fetuses Patient Bloodtype Patient rh Status Prepregnancy Weight lbs Domestic Partner Domestic Partner Phone Father Name Nutrition Services Manager Status 06/28/20 24 1 CLOSED Fetus Data First Name Last Name Admitted to NICU Weight (g) Sex Living Outcome Pediatric Complications Fetus ID Race Codes Race Delivery Type Full Term [id number] Vaginal Delivery Deandre Calculation Initial Deandre Date Initial Exam Date Initial Exam Provider Initial Ultrasound Date Last Menstrual Period Date Ultra Sound Weeks Gestation 0 Eighteen To Twenty Week Deandre Update Ultra Sound Date Fundal Height At Umbil Quickening Date Ultra Sound Latest Weeks Gestation Final Deandre Confirmed By Final Deandre Confirmed Date Final Deandre Date Ultra Sound Latest Days Gestation 0 0 Menstrual History Last Menstrual Date Menses Monthly On Bcp Conception Prior Menses Frequency Hcg Plus Date Menarche Onset Age Delivery Information Delivery Date Delivery Type Labor Anesthesia Weeks Gestation Incision Type Labor Labor Length Hrs Delivered By Post Complications Tubal Sterilization Discharge Date Comments 6 Discharge Information Feeding Method Contraceptive Method Maternal HG B and HCT Levels Ob Episode Information Episode Created Date Number of Fetuses Patient Bloodtype Patient rh Status Prepregnancy Weight lbs Domestic Partner Domestic Partner Phone Father Name Nutrition Services Manager Status 06/28/20 24 1 CLOSED Fetus Data First Name Last Name Admitted to NICU Weight (g) Sex Living Outcome Pediatric Complications Fetus ID Race Codes Race Delivery Type M Full Term [id number] Vaginal Delivery Deandre Calculation Initial Deandre Date Initial Exam Date Initial Exam Provider Initial Ultrasound Date Last Menstrual Period Date Ultra Sound Weeks Gestation 0 Eighteen To Twenty Week Deandre Update Ultra Sound Date Fundal Height At Umbil Quickening Date Ultra Sound Latest Weeks Gestation Final Deandre Confirmed By Final Deandre Confirmed Date Final Deandre Date Ultra Sound Latest Days Gestation 0 0 Menstrual History Last Menstrual Date Menses Monthly On Bcp Conception Prior Menses Frequency Hcg Plus Date Menarche Onset Age Delivery Information Delivery Date Delivery Type Labor Anesthesia Weeks Gestation Incision Type Labor Labor Length Hrs Delivered By Post Complications Tubal Sterilization Discharge Date Comments 2 Discharge Information Feeding Method Contraceptive Method Maternal HG B and HCT Levels Ob Episode Information Episode Created Date Number of Fetuses Patient Bloodtype Patient rh Status Prepregnancy Weight lbs Domestic Partner Domestic Partner Phone Father Name Nutrition Services Manager Status 06/28/20 24 1 CLOSED Fetus Data First Name Last Name Admitted to NICU Weight (g) Sex Living Outcome Pediatric Complications Fetus ID Race Codes Race Delivery Type F Full Term [id number] Vaginal Delivery Deandre Calculation Initial Deandre Date Initial Exam Date Initial Exam Provider Initial Ultrasound Date Last Menstrual Period Date Ultra Sound Weeks Gestation 0 Eighteen To Twenty Week Deandre Update Ultra Sound Date Fundal Height At Umbil Quickening Date Ultra Sound Latest Weeks Gestation Final Deandre Confirmed By Final Deandre Confirmed Date Final Deandre Date Ultra Sound Latest Days Gestation 0 0 Menstrual History Last Menstrual Date Menses Monthly On Bcp Conception Prior Menses Frequency Hcg Plus Date Menarche Onset Age Delivery Information Delivery Date Delivery Type Labor Anesthesia Weeks Gestation Incision Type Labor Labor Length Hrs Delivered By Post Complications Tubal Sterilization Discharge Date Comments 4 Discharge Information Feeding Method Contraceptive Method Maternal HG B and HCT Levels
--- OUTSIDE RECORDS SUMMARY | 2025-06-12 09:49 | XMS_ITS | Continuity of Care Document ---
Author Organization [employer], [facility] Address [address] [place] [address] Care Team Providers Care Community Youth Secretary Name Role Phone DARIUS ANGELA Primary Care Provider Assessment No assessment recorded. Plan of Treatment Reminders Order Date Submit Date Provider Last Modified By Organization Details Last Modified Time Details Appointments None record ed. Lab None record ed. Referral None record ed. Procedures None record ed. Surgeries None record ed. Imaging None record ed. Medication Orders None record ed. Patient TargetsNo targets recorded. Patient InstructionsNo instructions recorded. Reason for Referral None Reported. Procedures Surgical History Date Name Laterality Status Provider Name and Address Organization Details Recorded Time Tubal Ligation completed Kno. 06/28/2024 13:49:00 cholecystectomy completed K[facility]. 06/28/2024 13:49:08 Breast Surgery completed [facility]no. 06/28/2024 13:49:29 Imaging Results None recorded. Procedure [...] Address Organization Details Last Updated DateTime 5 272696. 42 g 48.1 kg/m2 156.21 cm 97 % 97 % 76 /min 98.4 [degF] 108/62 mm[Hg] Debora Shukla [employer] [employer]. 08:26:44 Social History Question Answer Notes LastModified by Organizat ion Details LastModified Time Tobacco Smoking Status Current Every Day Smoker Debora Vazquez [employer]a [employer] 04/19/2025 08:24:32 What Is Your Level Of Caffeine Consumption? Heavy [email or web address] Information not available 04/19/2025 What Type Of Diet Are You Following? REGULAR [email or web address] Information not available 04/19/2025 What Is The Highest Grade Or Level Of School You Have Completed Or The Highest Degree You Have Received? [id number] [email or web address] Information not available 04/19/2025 Do You Engage In Moderate/heavy Exercise (e.g. Brisk Walk, Jogging, Strength Training, Etc)? Yes [email or web address] Information not available 04/19/2025 What Was The Date Of Your Most Recent Tobacco Screening? 04/19/2025 [email or web address] Information not available 04/19/2025 Do You Use Protection During Sex? No Information not available 06/28/2024 Do You Use Protection Against STDs? No Information not available 06/28/2024 What Is Your Relationship Status? Information not available 06/28/2024 Are You Sexually Active? Yes Information not available 06/28/2024 At What Age Did You Start Smoking Tobacco? 15 [email or web address] Information not available 04/19/2025 How Much Tobacco Do You Smoke? 1 PPW [email or web address] Information not available 04/19/2025 How Many Years Have You Smoked Tobacco? 20 [email or web address] Information not available 04/19/2025 What Contraceptive Method Was Reported At Start Of This Visit? Female Sterilization Information not available 06/28/2024 Do You Have Any Dietary Restrictions? No [email or web address] Information not available 04/19/2025 Sex: Female Functional Status Question Answer Note LastModified by Organizat ion Details LastModified Time Do you use any illicit or recreational drugs? No [email or web address] Information not available 04/19/2025 What is your level of alcohol consumption? None [email or web address] Information not available 04/19/2025 Are you currently employed? Yes [email or web address] Information not available 04/19/2025 Do you have transportation difficulties? No [email or web address] Information not available 04/19/2025 Are you able to care for yourself independently? Yes [email or web address] Information not available 04/19/2025 Mental Status Question Answer Note LastModified by Organization D etails LastModified Time Do you feel stressed (tense, restless, nervous, or anxious, or unable to sleep at night)? [id number] [email or web address] Information not available 04/19/2025 Family History Nothing Reported. Medical History Condition Response Anxiety Disorder Y Depression/ depression Y Hospitalizations N Emergency room visit since last appointm ent. N Mental Illness Y Gynecological History Statement/Question Response Abnormal Pap [...] Recorded Time Tdap 04/15/2021 completed Not Available [employer] 05/15/2025 08:27:23 Past Encounters Encounter ID Performer Location Encounter Start Date Encounter Closed Date Diagnosis/Indication Diagnosis SNOMED-CT Code Diagnosis ICD10 Code Diagnosis IMO Codes Diagnosis Note [id number] ROMULO WONG NP [address] [address] 04/19/2025 08:15:42 04/19/2025 09:57:29 Physical examination 7963202 Z00.00 [id number] Discussed healthy habits, encouraged smoking cessation. Health Concerns Section Related Observation LastModified by Organization Detai ls LastModified Time None Recorded Concern Status LastModified by Organization Details LastModified Time None Recorded Payers Encounter Date Sequence Insurance Name Policy Number Policy Centeno Covered Member ID Centeno Member ID Guarantor Name 04/19/2025 1 [employer] [facility] (MEDICAID HMO) Mohini Forde [id number] Mohini Forde Notes Date Note Type Note Provider Name and Address Organization Details Recorded Time 04/19/2025 text/html ROS as noted in the HPI Presents today for work physical. Denies acute concerns. Denies all medication. Reports past medical history of anxiety, depression, and borderline personality disorder. Current smoker, denies drug, alcohol, vape use. Denies current medications. ROMULO WONG NP [address] [place] [address], [place], [address], [facility] 04/19/2025 09:57:13 OBGyn Episode No OBEpisode recorded.
--- OUTSIDE RECORDS SUMMARY | 2025-06-12 09:49 | XMS_ITS | Data Portability ---
Author Organization [facility] & ADRIAN Castrejon ADMIN Address [address] [place] [id number] Care Team Providers Care Copy Center Specialist Name Role Phone ANGELA SCOTT Primary Care Provider [phone] Assessment No assessment recorded. Plan of Treatment Reminders Order Date Submit Date Provider Last Modified By Organization Details Last Modified Time Details Appointments None recorded. Lab vitamin B12 + folate, serum or blood [address] Lab (Add On Labs Only), [address] [place] [address] [place], [address], 5 07:50:04 lipid panel, serum [address] [facility] ([facility] On [facility] Only), [address] [place] [address] [place], [address], 5 07:50:04 glycohemog lobin, total, blood [address] [facility] ([facility] On [facility] Only), [address] [place] [address] [place], [address], 5 07:50:04 CBC w/ auto diff [address] Lab (Add On Labs Only), [address] [place] [address] [place], [address], 5 07:50:04 CMP, serum or plasma [address] Lab ([facility] On Labs Only), [address] [place] [address] [place], [address], 5 07:50:04 TSH + free T4, serum [address] Lab ([facility] On Labs Only), [address] [place] [address] [place], [address], 5 07:50:04 urinalysis , dipstick [address]- Dept 648, [address], [place], [address], 4 11:43:26 HbA1c (hemoglobi n A1c), blood 2022 023 [facility]- Dept 648, [address], [place], [address], 3 13:21:10 prolactin, serum 2022 023 [facility] (Add On Labs Only), [address] [place] [address] [place], [address], 3 14:33:00 TSH + free T4, serum 2022 023 [email or web address] [facility] ([facility] Only), [address] [place] [address] [place], [address], 3 07:57:03 Referral breast surgery referral 2024 025 jennifer Daniel MD, [address] [place], [address], 5 09:39:14 general surgeon referral 2023 024 HAWA Álvarez MD, [address], [place], [address], 4 09:46:22 Procedures None recorded. Surgeries None recorded. Imaging None recorded. Medication Orders amitriptyl ine 25 mg tablet 2023 024 [facility] [address] [place], [address], 4 12:17:20 bupropion HCl XL 300 mg 24 hr tablet, extended release 2023 024 [facility], [facility], [address], 4 12:17:21 levofloxac in 500 mg tablet 2023 025 [facility], [address], 5 11:09:16 potassium chloride ER 10 mEq tablet,ext ended release 2023 024 [address], [address] [place] [address], [address], 4 09:57:34 folic acid 400 mcg tablet 2022 023 [address], [facility] [place], [address], 4 09:57:14 furosemide 20 mg tablet 2022 023 [address], [facility], [address], 4 09:57:18 potassium chloride ER 10 mEq tablet,ext ended release 2022 023 [address], [facility] [place], [address], 4 09:57:34 amitriptyl ine 25 mg tablet 2022 023 [facility], [address] [place] [address], [address], 3 10:52:58 bupropion HCl XL 300 mg 24 hr tablet, extended release 2022 023 [facility], [address] [place], [address], 3 10:53:00 Vraylar 3 mg capsule 2022 023 [address] [place], [address], 5 11:07:40 buspirone 10 mg tablet 2022 023 [facility], [address] [place], [address], 3 10:52:57 fluoxetine 40 mg capsule 2022 023 [address] [place], [address], 4 10:12:15 Patient TargetsNo targets recorded. Patient Instructions Encounter Date Encounter Id Patient Instructions Last Modified By Organization Details Last Modified Time 07/16/2023 [id number] complete PFT w/ post bronchodilator spirometry* ATHENAFAX [...] Abnormal Flag Note LastModifiedBy Organization Detail LastModifiedTime 07/16/20 23 07/16/2023 T4 FREE T4 free 0.92 NG/dL 0.78-2 .19 Not Available [facility] (Pre-Op Clinic) [address] [place] [address] [place], [address], 07/16/2023 19:57:20 07/16/20 23 07/16/2023 T4 FREE note Unles s other ayala noted testi ng perfo rmed at: [facility] [address] [place] [address] Marcello diego MD Not Available [facility] (Pre-Op Clinic) [address] [place] [address] [place], [address], 07/16/2023 19:57:20 07/16/20 23 07/16/2023 TSH thyroid stim hormone 1.87 uIU/m L 0.465- 4.68 Not Available [facility] (Pre-Op Clinic) [address] [place] [address] [place], [address], 07/16/2023 20:17:11 07/16/20 23 07/16/2023 TSH note Unles s other ayala noted testi ng perfo rmed at: [facility] [address] [place] [address] Marcello diego MD Not Available [facility] (Pre-Op Clinic) [address] [place] [address] [place], [address], 07/16/2023 20:17:11 07/16/20 23 07/16/2023 PROLA CTIN note Unles s other ayala noted testi ng perfo rmed at: [facility] [address] [place] [address] Marcello diego MD Not Available [facility] (Pre-Op Clinic) [address] [place] [address] [place], [address], 07/18/2023 14:33:00 07/16/20 23 07/18/2023 PROLA CTIN [...] Perfo rmed at: CB - Labco r[facility] [address] [facility], [place] [id number] Lab Direc tor: Richard singleton PhD, Phone : [phone] Not Available [facility] (Pre-Op Clinic) [address] [place] [address] [place], [address], 07/18/2023 14:33:00 07/16/20 23 07/16/2023 HbA1c (hemo globi n A1c), blood HbA1c 5.7 Not Available [facility]- Dept [address] [facility] [facility] , [place], [address], 07/16/2023 10:56:51 01/26/20 24 01/26/2024 urina lysis , dipst ick Leukocytes (reference range) negati ve Not Available [facility] [address] [facility] [facility] [place], [address], 01/26/2024 10:13:46 01/26/20 24 01/26/2024 urina lysis , dipst ick Nitrite (reference range:) negati ve Not Available [facility] [address], [place], [address], 01/26/2024 10:13:46 01/26/20 24 01/26/2024 urina lysis , dipst ick Urobilinogen (reference range) 0.2 Not Available [facility]- Dept [address] , [place], [address], 01/26/2024 10:13:46 01/26/20 24 01/26/2024 urina lysis , dipst ick Protein (reference range) negati ve Not Available [facility] [place] [address] [address] [facility], [place], [address], 01/26/2024 10:13:46 01/26/20 24 01/26/2024 urina lysis , dipst ick pH (reference range 5-8.5) 7.0 Not Available [place] [address] [address] [facility], [place], [address], 01/26/2024 10:13:46 01/26/20 24 01/26/2024 urina lysis , dipst ick Blood (reference range:) non-He molyze d: Trace Not Available [place] [address] [address] , [place], [address], 01/26/2024 10:13:46 01/26/20 24 01/26/2024 urina lysis , dipst ick Specific [place] (reference range) 1.010 Not Available [place] [address] [address] [facility], [place], [address], 01/26/2024 10:13:46 01/26/20 24 01/26/2024 urina lysis , dipst ick Ketone (reference range) negati ve Not Available [place] [address] [address] [facility], [place], [address], 01/26/2024 10:13:46 01/26/20 24 01/26/2024 urina lysis , dipst ick Bilirubin (reference range) negati ve Not Available [place] [address] [address] [place], [address], 01/26/2024 10:13:46 01/26/20 24 01/26/2024 urina lysis , dipst ick Glucose (reference range) negati ve Not Available [facility]- Dept [address], [place], [address], 01/26/2024 10:13:46 01/26/20 24 01/26/2024 urina lysis , dipst ick Color (reference range: yellow-brown ) Yellow Not Available [facility]- Dept [address], [place], [address], 01/26/2024 10:13:46 12/28/19 25 12/27/2024 CBC W/ AUTO DIFF WBC 15.36 K/uL 4.5-11 .5 high Not Available [facility] (Pre[facility]Op [facility]) [address] [place] [address] [place], [address], 12/27/2024 19:21:11 12/28/19 25 12/27/2024 CBC W/ AUTO DIFF RBC 4.20 M/uL 4.0-5. 4 Not Available [facility] (Pre[facility]Op [facility]) [address] [place] [address] [place], [address], 12/27/2024 19:21:11 12/28/19 25 12/27/2024 CBC W/ AUTO DIFF HGB 13.1 g/dL 12.0-1 5.0 Not Available [facility] (Pre-Op [facility]) [address] [place] [address] [place], [address], 12/27/2024 19:21:11 12/28/19 25 12/27/2024 CBC W/ AUTO DIFF HCT 39.6 % 35-49 Not Available [facility] ([facility]Op [facility]) [address] [place] [address] [place], [address], 12/27/2024 19:21:11 12/28/19 25 12/27/2024 CBC W/ AUTO DIFF MCV 94.3 fL 80.0-1 00.0 Not Available [facility] ([facility]Op [facility]) [address] [place] [address] [place], [address], 12/27/2024 19:21:11 12/28/19 25 12/27/2024 CBC W/ AUTO DIFF MCH 31.2 pg 26.0-3 2.0 Not Available [facility] (Pre-Op Clinic) [address] [place] [address] [place], [address], 12/27/2024 19:21:11 12/28/1912/27/2024 CBC W/ AUTO DIFF MCHC 33.1 g/dL 32.0-3 6.0 Not Available [facility] (Pre-Op [facility]) [address] [place] [address] [place], [address], 12/27/2024 19:21:11 12/28/1912/27/2024 CBC W/ AUTO DIFF RDW 15.5 % 11.5-1 4.5 high Not Available [facility] (Pre-Op [facility]) [address] [place] [address] [place], [address], 12/27/2024 19:21:11 12/28/19 25 12/27/2024 CBC W/ AUTO DIFF platelet count 278 K/uL 142-42 4 Not Available [facility] (Pre-Op [facility]) [address] [place] [address] [place], [address], 12/27/2024 19:21:11 12/28/19 25 12/27/2024 CBC W/ AUTO DIFF MPV 10.9 fL 6.8-10 .2 high Not Available [facility] ([facility]Op [facility]) [address] [place] [address] [place], [address], 12/27/2024 19:21:11 12/28/19 25 12/27/2024 CBC W/ AUTO DIFF neutrophil % 50.0 % 50-70 Not Available [facility] ([facility]-Op [facility]) [address] [place] [address] [place], [address], 12/27/2024 19:21:11 12/28/19 25 12/27/2024 CBC W/ AUTO DIFF lymphocyte % 41.5 % 18.0-4 2.0 Not Available [facility] (Pre[facility]Op [facility]) [address] [place] [address] [place], [address], 12/27/2024 19:21:11 12/28/19 25 12/27/2024 CBC W/ AUTO DIFF monocyte % 4.8 % 2.0-11 .0 Not Available [facility] (Pre[facility]Op [facility]) [address] [place] [address] [place], [address], 12/27/2024 19:21:11 12/28/19 25 12/27/2024 CBC W/ AUTO DIFF eosinophil % 2.5 % 1.0-3. 0 Not Available [facility] (Pre[facility]Op [facility]) [address] [place] [address] [place], [address], 12/27/2024 19:21:11 12/28/19 25 12/27/2024 CBC W/ AUTO DIFF basophil % 0.5 % 0.0-2. 0 Not Available [facility] (Pre[facility]Op [facility]) [address] [place] [address] [place], [address], 12/27/2024 19:21:11 12/28/19 25 12/27/2024 CBC W/ AUTO DIFF immature granulocytes % 0.7 % 0.0-0. 8 Not Available [facility] (Pre[facility]Op [facility]) [address] [place] [address] [place], [address], 12/27/2024 19:21:11 12/28/19 25 12/27/2024 CBC W/ AUTO DIFF nucleated red blood cells % 0.0 % Not Available [facility] (Pre-Op [facility]) [address] [place] [address] [place], [address], 12/27/2024 19:21:11 12/28/19 25 12/27/2024 CBC W/ AUTO DIFF neutrophil # 7.69 K/uL Not Available [facility] ([facility]Op [facility]) [address] [place] [address] [place], [address], 12/27/2024 19:21:11 12/28/19 25 12/27/2024 CBC W/ AUTO DIFF lymphocyte # 6.37 K/uL Not Available [facility] (Pre[facility]Op [facility]) [address] [facility] [place], [address], 12/27/2024 19:21:11 12/28/19 25 12/27/2024 CBC W/ AUTO DIFF monocyte # 0.73 K/uL Not Available [facility] ([facility]Op [facility]) [address] [place] [address] [place], [address], 12/27/2024 19:21:11 12/28/19 25 12/27/2024 CBC W/ AUTO DIFF eosinophil # 0.39 K/uL Not Available [facility] ([facility]Op [facility]) [address] [place] [address] [place], [address], 12/27/2024 19:21:11 12/28/19 25 12/27/2024 CBC W/ AUTO DIFF basophil # 0.08 K/uL Not Available [facility] ([facility]Op [facility]) [address] [place] [address] [place], [address], 12/27/2024 19:21:11 12/28/19 25 12/27/2024 CBC W/ AUTO DIFF immature gramulocytes # 0.10 K/uL Not Available [facility] ([facility]Op [facility]) [address] [place] [address] [place], [address], 12/27/2024 19:21:11 12/28/19 25 12/27/2024 CBC W/ AUTO DIFF nucleated red blood cells # 0.00 k/uL Not Available [facility] ([facility]Op [facility]) [address] [place] [address] [place], [address], 12/27/2024 19:21:11 12/28/19 25 12/27/2024 CBC W/ AUTO DIFF manual differential NO Not Available [facility] ([facility]Op [facility]) [address] [place] [address] [place], [address], 12/27/2024 19:21:11 12/28/19 25 12/27/2024 CBC W/ AUTO DIFF note Unles s other ayala noted testi ng perfo rmed at: [facility] [address] [place] [address] Marcello diego MD Not Available [facility] (Pre[facility]Op [facility]) [address] [place] [address] [place], [address], 12/27/2024 19:21:11 12/28/19 25 12/27/2024 T4 FREE T4 free 0.89 NG/dL 0.78-2 .19 Not Available [facility] (Pre[facility]Op [facility]) [address] [place] [address] [place], [address], 12/27/2024 20:08:40 12/28/19 25 12/27/2024 T4 FREE note Unles s other ayala noted testi ng perfo rmed at: [facility] [address] [place] [address] Marcello diego MD Not Available [facility] ([facility]Op [facility]) [address] [place] [address] [place], [address], 12/27/2024 20:08:40 12/28/19 25 12/27/2024 COMP METAB OLIC PANEL sodium 137 mmol/ L 137-14 7 Not Available [facility] ([facility]Op [facility]) [address] [place] [address] [place], [address], 12/27/2024 20:21:57 12/28/19 25 12/27/2024 COMP METAB OLIC PANEL potassium 4.5 mmol/ L 3.5-5. 1 Not Available [facility] (Pre[facility]Op [facility]) [address] [place] [address] [place], [address], 12/27/2024 20:21:57 12/28/19 25 12/27/2024 COMP METAB OLIC PANEL chloride 105 mmol/ L 98-110 Not Available [facility] ([facility]Op [facility]) [address] [facility] [place], [address], 12/27/2024 20:21:57 12/28/19 25 12/27/2024 COMP METAB OLIC PANEL carbon dioxide 24 mmol/ L 21-30 Not Available [facility] ([facility]Op [facility]) [address] [facility] [place], [address], 12/27/2024 20:21:57 12/28/19 25 12/27/2024 COMP METAB OLIC PANEL anion gap 8 mmol/ L 6-14 Not Available [facility] (Pre[facility]Op [facility]) [address] [facility] [place], [address], 12/27/2024 20:21:57 12/28/19 25 12/27/2024 COMP METAB OLIC PANEL glucose 86 mg/dL 70-115 Not Available [facility] ([facility]Op [facility]) [address] [facility] [place], [address], 12/27/2024 20:21:57 12/28/19 25 12/27/2024 COMP METAB OLIC PANEL BUN 5 mg/dL 7-17 low Not Available [facility] ([facility]Op [facility]) [address] [facility] [place], [address], 12/27/2024 20:21:57 12/28/19 25 12/27/2024 COMP METAB OLIC PANEL creatinine 0.7 mg/dL 0.5-1. 5 Not Available [facility] ([facility]Op [facility]) [address] [place] [address] [place], [address], 12/27/2024 20:21:57 12/28/19 25 12/27/2024 COMP METAB OLIC PANEL BUN/creatini ne ratio 7 10-20 low Not Available [facility] ([facility]Op [facility]) [address] [place] [address] [place], [address], 12/27/2024 20:21:57 12/28/19 25 12/27/2024 COMP METAB [...] george ing kiney funct ion. Not Available [facility] ([facility]) [address] [place] [address] [place], [address], 12/27/2024 20:21:57 12/28/19 25 12/27/2024 COMP METAB OLIC PANEL osmolality (calculated) 282 mosmo l/kg 275-30 1 OSMOL ALITY IS A CALCU LATIO N UTILI ZING THE SERUM /PLAS MA SODIU M, GLUCO SE AND UREA NITRO GEN (BUN) LEVEL S. FOR THE MOST ACCUR ATE RESUL T A MEASU RED SERUM OSMOL ALITY IS SUGGE STED. Not Available [facility] ([facility]) [address] [place] [address] [place], [address], 12/27/2024 20:21:57 12/28/19 25 12/27/2024 COMP METAB OLIC PANEL total protein 6.7 g/dL 6.2-8. 2 Not Available [facility] ([facility]) [address] [place] [address] [place], [address], 12/27/2024 20:21:57 12/28/19 25 12/27/2024 COMP METAB OLIC PANEL albumin 4.1 g/dL 3.5-5. 0 Not Available [facility] ([facility]) [address] [place] [address] [place], [address], 12/27/2024 20:21:57 12/28/19 25 12/27/2024 COMP METAB OLIC PANEL calcium 9.4 mg/dL 8.5-10 .8 Not Available [facility] ([facility]) [address] [place] [address] [place], [address], 12/27/2024 20:21:57 12/28/19 25 12/27/2024 COMP METAB OLIC PANEL bilirubin total 0.2 mg/dL 0.2-1. 3 Not Available [facility] ([facility]Op [facility]) [address] [place] [address] [place], [address], 12/27/2024 20:21:57 12/28/19 25 12/27/2024 COMP METAB OLIC PANEL AST (SGOT) 20 IU/L 14-36 Not Available [facility] ([facility]) [address] [place] [address] [place], [address], 12/27/2024 20:21:57 12/28/19 25 12/27/2024 COMP METAB OLIC PANEL ALT (SGPT) 19 IU/L 0-35 Pleas e note new refer ence inter rachid for ALT. Due to a recen t manuf actur er metho dolog y george e, the refer ence inter rachid for ALT is lower effec tive December 05, 2020. Not Available [facility] ([facility]Op [facility]) [address] [place] [address] [place], [address], 12/27/2024 20:21:57 12/28/19 25 12/27/2024 COMP METAB OLIC PANEL alk phosphatase 57 IU/L 38-126 Not Available [facility] ([facility]Op [facility]) [address] [place] [address] [place], [address], 12/27/2024 20:21:57 12/28/19 25 12/27/2024 COMP METAB OLIC PANEL note Unles s other ayala noted testi ng perfo rmed at: [facility] [address] [place] [address] Marcello diego MD Not Available [facility] ([facility]) [address] [place] [address] [place], [address], 12/27/2024 20:21:57 12/28/19 25 12/27/2024 LIPID PANEL cholesterol 146 mg/dL 0-200 Not Available [facility] ([facility]) [address] [facility] [place], [address], 12/27/2024 20:21:58 12/28/19 25 12/27/2024 LIPID PANEL HDL 29 mg/dL 40- low Not Available [facility] ([facility]) [address] [facility] [place], [address], 12/27/2024 20:21:58 12/28/19 25 12/27/2024 LIPID PANEL total chol/HDL ratio 5.0 0-4 high Not Available [facility] ([facility]) [address] [facility] [place], [address], 12/27/2024 20:21:58 12/28/19 25 12/27/2024 LIPID PANEL triglyceride 173 mg/dL 35-135 high Not Available [facility] ([facility]Op [facility]) [address] [facility] [place], [address], 12/27/2024 20:21:58 12/28/19 25 12/27/2024 LIPID PANEL LDL calculated 82 mg/dL 0-130 Not Available [facility] ([facility]Op [facility]) [address] [facility] [place], [address], 12/27/2024 20:21:58 12/28/19 25 12/27/2024 LIPID PANEL VLDL calculated 35 mg/dL 0-40 Not Available [facility] ([facility]Op [facility]) [address] [facility] [place], [address], 12/27/2024 20:21:58 12/28/19 25 12/27/2024 LIPID PANEL note Unles s other ayala noted testi ng perfo rmed at: [facility] count includes the [facility] [address] [place] [address] Marcello diego MD Not Available [facility] ([facility]Op [facility]) [address] [place] [address] [place], [address], 12/27/2024 20:21:58 12/28/19 25 12/27/2024 TSH thyroid stim hormone 1.02 uIU/m L 0.465- 4.68 Not Available [facility] ([facility]Op [facility]) [address] [place] [address] [place], [address], 12/27/2024 20:53:58 12/28/19 25 12/27/2024 TSH note Unles s other ayala noted testi ng perfo rmed at: [facility] [address] [place] [address] Marcello diego MD Not Available [facility] (Pre[facility]Op [facility]) [address] [place] [address] [place], [address], 12/27/2024 20:53:58 12/28/19 25 12/27/2024 HEMOG LOBIN A1C note Unles s other ayala noted testi ng perfo rmed at: [facility] [address] [place] [address] Marcello diego MD Not Available [facility] ([facility]Op [facility]) [address] [place] [address] [place], [address], 12/28/2024 05:52:18 12/28/1912/28/2024 HEMOG LOBIN A1C HGB A1C 5.4 % 4.3-6. 1 HEMOG LOBIN LEVEL S ARE RELAT ED TO MEAN BLOOD GLUCO SE LEVEL S DURIN G THE PRECE DING 2-3 MONTH S. REFER ENCE RANGE NON-D IABET IC PATIE NTS: 4.3 - 6.1 % DIABE TIC PATIE NTS: 6.2 % AND ABOVE Not Available [facility] (Pre[facility]Op [facility]) [address] [place] [address] [place], [address], 12/28/2024 05:52:18 12/28/19 25 12/28/2024 HEMOG LOBIN A1C estimated average glucose(EAG) 108 mg/dL 77-128 Not Available [facility] (Pre-Op [facility]) [address] [place] [address] [place], [address], 12/28/2024 05:52:18 12/28/19 25 12/27/2024 VITAM IN B12 note Unles s other ayala noted testi ng perfo rmed at: [facility] [address] [place] [address] Marcello diego MD Not Available [facility] (Pre-Op [facility]) [address] [place] [address] [place], [address], 12/28/2024 09:02:46 12/28/19 25 12/28/2024 VITAM IN B12 vitamin B12 252 pg/mL 239-93 1 Not Available [facility] (Pre-Op [facility]) [address] [place] [address] [place], [address], 12/28/2024 09:02:46 12/28/19 25 12/28/2024 VITAM IN B12 folate (folic acid), serum 1.9 NG/mL 2.76- low Not Available [facility] (Pre-Op Clinic) [address] [place] [address] [place], [address], 12/28/2024 09:02:46 07/26/20 23 07/22/2023 MAMMO , scree esteban, digit al, bilat eral No observ ation record ed. [email or web address] [facility] [address], [place], [address], 07/28/2023 14:07:16 08/04/20 23 08/02/2023 , esperanza tgenoveva teral No observ ation record ed. [facility] [address], [place], [address], 08/27/2023 08:24:02 08/05/20 23 08/02/2023 US, esperanza t, unila teral No observ ation record ed. [facility] (Scheduling) [address], [place], [address], 08/05/2023 10:32:57 09/02/19 24 08/25/2023 needl e core biops y, breas t, ultra sound jes nce (PROC ) No observ ation record ed. [facility] (Scheduling) [address], [place], [address], 09/09/2023 18:54:33 01/12/20 24 01/12/2024 XR, chest , 2 view No observ ation record ed. [email or web address] [facility] [address], [place], [address], 01/12/2024 16:08:31 01/12/20 24 01/12/2024 elect true mcfarland am No observ ation record ed. [facility] [address], [place], [address], 01/14/2024 11:17:36 01/03/20 25 01/02/2025 imagi ng inter preta tion No observ ation record ed. [email or web address] [address], [place], [address], 01/03/2025 08:26:08 01/04/20 25 01/02/2025 trans -thor acic echoc ardio gram (TTE) (PROC ) No observ ation record ed. [id number] [facility] [address], [place], [address], 01/03/2025 14:11:17 02/24/20 25 02/23/2025 imagi ng inter preta tion No observ ation record ed. [facility] [address], [place], [address], 02/23/2025 11:41:00 02/24/20 25 02/23/2025 imagi ng inter preta tion No observ ation record ed. [address], [place], [address], 02/23/2025 16:08:01 02/24/20 25 02/23/2025 imagi ng inter preta tion No observ ation record ed. [address], [place], [address], 02/23/2025 16:08:06 Result Notes None recorded. 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 2021 Angela Scott NP [address], [address], [place], [address], [place] & [place] 2 13:49:45 Hypoglycemi a 228495097 Active 2021 Angela Scott NP [address], [address], [place], [address], [place] 2 13:49:47 Morbid obesity 693262044 Active 2022 Angela Scott NP [address], [address], [place], [address], [place] 3 12:03:27 Vitamin B12 deficiency (non anemic) 26480507 Active 2022 Angela Scott NP [address], [address], [place], [address], [place] 3 12:03:53 Fatigue 00062392 Active 2022 Angela Scott NP [address], [address], [place], [address], [place] 5 11:29:42 Bipolar disorder 82884404 Active 2022 Angela Scott NP [address], [address], [place], [address], [place] 3 12:05:15 Generalized anxiety disorder 83691618 Active 2022 Angela Scott NP [address], [address], [place], [address], [place] 3 12:05:18 Attention deficit hyperactivi ty disorder, predominant ly inattentive type 35341890 Active 2022 Angela Scott NP [address], [address], [place], [address], [place] 3 13:23:58 Abscess of breast 67231335 Active 2022 Angela Scott NP [address], [address], [place], [address], [place] 3 11:27:43 Peripheral edema 780930075 Active 2022 Angela Scott NP [address], [address], [place], [address], [place] 3 10:18:55 Dyspnea on exertion 59557771 Active 2022 Angela Scott NP [address], [address], [place], [address], [place] 3 10:21:19 Mass of right breast 7662932131407 9106 Active 2022 Angela Scott NP [address], [address], [place], [address], [place] 3 10:21:36 Discharge from right nipple 3169388214881 9101 Active 2022 Angela Scott NP [address], [address], [place], [address], [place] 3 10:49:55 Prediabetes 811870228 Active 2022 Angela Scott NP [address], [address], [place], [address], [place] 3 10:56:46 Mammography abnormal 078090833 Active 2022 Angela Scott NP [address], [address], [place], [address], [place] 3 09:51:00 Tobacco dependence caused by cigarettes 6768820854092 9107 Active 2023 Shelley Hong MD [address], [address], [place], [address], [place] 4 10:36:39 Dark yellow urine 207311998 Active 2023 Angela Scott NP [address], [address], [place], [address], [place] 4 10:13:44 Dysmenorrhe a 021273841 Active 2023 Angela Scott NP [address], [address], [place], [address], [place] 4 12:15:44 Irregular periods 16405338 Active 2023 Angela Scott NP [address], [address], [place], [address], [place] 4 12:16:19 Problem Notes None recorded. Procedures Surgical History Date Name Laterality Status Provider Name and Address Organization Details Recorded Time 07/22/20 Most Recent Mammogram completed Keshav Price [place] [facility] & [place] 09/23/2023 10:59:16 Breast Biopsy completed [facility] [place] 09/23/2023 10:59:23 cholecystectomy completed Luz Rodriguestona [place] - [facility] [facility] & [place] 05/25/2022 10:18:47 procedure on fallopian tube completed Luz Rodriguestona [place] - [facility] & [place] 05/25/2022 10:19:58 Imaging Results None recorded. Procedure [...] completed Not Available Not Available Not Available [facility] COVID-19 Antigen Rapid Home Test kit 10/05 completed Not Available Not Available Not Available Vitals Date Recorded Body height Body mass index (BMI) Body weight Body temperature Oxygen saturation Oxygen saturation in Arterial blood by Pulse oximetry Heart rate Systolic And Diastolic Provider Name and Address Organization Details Last Updated DateTime 4 154.94 cm 60.3 kg/m2 565437. 4 g 98.1 [degF] 98 % 98 % 108 /min 130/80 mm[Hg] payton gregory [facility] & [place] 4 10:11:43 Date Recorded Body height Body mass index (BMI) Body weight Body temperature Oxygen saturation Oxygen saturation in Arterial blood by Pulse oximetry Heart rate Systolic And Diastolic Provider Name and Address Organization Details Last Updated DateTime 5 154.94 cm 47.3 kg/m2 249436. 81 g 96.9 [degF] 97 % 97 % 94 /min 120/70 mm[Hg] payton bri [place] [facility] & [place] 5 11:06:55 Date Recorded Body height Body mass index (BMI) Body weight Body temperature Oxygen saturation Oxygen saturation in Arterial blood by Pulse oximetry Heart rate Systolic And Diastolic Provider Name and Address Organization Details Last Updated DateTime 4 154.94 cm 57 kg/m2 952713. 18 g 97.1 [degF] 99 % 99 % 80 /min 114/72 mm[Hg] Kat Starr [facility] & [place] 4 09:55:49 Date Recorded Body height Body mass index (BMI) Body weight Body temperature Oxygen saturation Oxygen saturation in Arterial blood by Pulse oximetry Heart rate Systolic And Diastolic Provider Name and Address Organization Details Last Updated DateTime 4 154.94 cm 50.9 kg/m2 175792. 07 g 96.6 [degF] 95 % 95 % 108 /min 120/78 mm[Hg[facility] [place] 4 11:57:20 Date Recorded Body height Body mass index (BMI) Body weight Body temperature Heart rate Systolic And Diastolic Provider Name and Address Organization Details Last Updated DateTime 3 154.94 cm 60.2 kg/m2 589115. 25 g 97.2 [degF] 72 /min 120/70 mm[Hg] payton [place]SH[place] - [place] 10:26:28 Social History Question Answer Notes LastModified by Organizat ion Details LastModified Time Tobacco Smoking Status Current Every Day Smoker Luz chapa, [place] Nesbitt [facility] [place] 05/25/2022 10:16:35 If You Are , What [...] Details LastModified Time Mother Cirrhosis of liver Not available 2022 00:43:21 Medical History Condition Response Obesity Y Anxiety/Depression Y Gynecological History Statement/Question Response Most Recent Mammogram 07/22/2023 Obstetrics History GPAL:G 0 P 0 0 0 0 Immunizations Vaccine Type Date Status Note Provider Nam e and Address Organization Details Recorded Time Tdap 04/15/2021 completed payton chapa, [place] CAMPBELL [facility] & [place] 01/04/2023 11:34:35 Past Encounters Encounter ID Performer Location Encounter Start Date Encounter Closed Date Diagnosis/Indication Diagnosis SNOMED-CT Code Diagnosis ICD10 Code Diagnosis IMO Codes Diagnosis Note [id number] Angela Scott NP [facility] Medicine [address] [place] [address] 05/04/2022 13:26:45 05/04/2022 14:04:28 Numbness of hand 989080252 R20.0 will check labshx of VItamin B12 and folate def.will also check CBC, CMP and Y2Qsmmywpx ntials include carpal tunnel syndrome Numbness o f lower limb 306757489 R20.0 will check B12 and lumbar xraydiscol oration seems to be more of a Raynauds issue Low back pain 033959417 M54.50 will get a lumbar xray to determine if this is any lower spine pathology [id number] Angela Scott NP [facility] Medicine [address] [place] [address] 05/11/2022 13:20:48 05/11/2022 13:48:22 Leukocytosis 818349674 D72.829 Hypoglycemia 052129070 E 16.2 [id number] Davide Lange MD [facility] Oncology and Hematolog [address] [place] [address] 05/25/2022 09:40:42 05/25/2022 11:00:08 Leukocytosis 139520840 D72.829 Labs on May 11, 2022 with white blood cell count 14.8. Red blood count 4.2. Hemoglobin 13.1 and hematocrit 41.0. MCV 96.2. Platelet count 673385. Neutrophil percentage of 49%. Absolute neutrophil count [...] secondary to tobacco abuse. Cobalamin deficiency 190 327375 E53.8 Labs on May 04, 2022 with low B12 level at 249. Low folate level at 2.1.Cecille smith has been started on monthly B12 injections . Folic acid deficiency 19 8287356 E53.8 Labs on May 04, 2022 with low B12 level at 249. Low folate level at 2.1. Tobacco user 523560169 Z 72.0 One pack-per-d ay smoker currently. Concern white blood cell count elevation secondary to smoking. Will follow-up labs. [id number] Gisela Gonzalez DNP, DRAWING MACHINE OPERATOR-C, SAP ABAP PROGRAMMER ZZ [facility] [address] [facility],[address] [place] [address] 08/26/2022 09:44:27 08/26/2022 10:15:48 Nausea and vomiting 85272759 R11.2 Viral syndrome 204543050 B34.9 [id number] Angela Scott NP [facility] Medicine [address] [place] [address] 01/04/2023 11:22:23 01/04/2023 12:14:41 Morbid obesity 084585856 E66.01 Discussed bariatric surgery with patientI think patient would benefit greatly from this surgeryWe will start monitoring patient's weight once a monthEncou rage patient to get online to [place] [facility] and get set up for the online seminar to get the process started Body mass index 40+ - severely obese 807121995 Z68.43 Vitamin B1 2 deficiency (non anemic) 17896382 E53.8 check vitamin B level Fatigue 08242854 R53.83 check CBC, CMP and thyroid Screening for cardiovascular system disease 084568901 Z13.6 check lipids Bipolar disorder 4625771 4 F31.9 refill meds Generalize d anxiety disorder 52614587 F41.1 refill medsstable Attention deficit hyperactivity disorder, 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 stable, refill med [id number] Angela Scott NP [facility] Medicine- Dept [address] [facility] [place] [address] 02/04/2023 15:49:21 02/04/2023 16:38:17 Abscess of breast 96280776 N61.1 will recheck right breast U/S to ensure resolution of abscesspt is afraid that it is still present despite I&D and antibiotic therapy Generalize d anxiety disorder 21502035 F41.1 stable on Prozacrefi lls Morbid obesity 225820062 E66.01 pt going to work on diet changes and cut back on soda and snackswork ing intermitte nt fasting and carb cyclingpt is currently drinking 12 Ale8s daily [id number] Angela Scott NP [facility] Medicine- Dept 648 [address] [facility] LEATHALAYLA [place] [address] 04/22/2023 09:34:57 04/22/2023 10:46:03 Peripheral edema 732527119 R60.9 start HCTZ 25 mg to flush fluid Bipolar disorder 4220234 4 F31.9 refill meds Generalize d anxiety disorder 45615444 F41.1 stable on Prozacrefi lls Morbid obesity 593261584 E66.01 up 14 lbspt is drinking more watercut back on Annmarie-8 consumptio n Dyspnea on exertion 6084 5006 R06.09 check PFTpt is a smoker Mass of right breast 533 9059685 3297205 N63.10 order diag mammogram Vitamin B1 2 deficiency (non anemic) 16262072 E53.8 check b12 Diabetes m ellitus screening 797279408 Z13.1 [id number] Angela Scott NP [facility] Medicine- Dept [address] [place] [address] [place] [address] 07/16/2023 10:10:40 07/16/2023 11:05:09 Bipolar disorder 99986414 F31.9 refill medsstable Generalize d anxiety disorder 97017716 F41.1 stable on Prozac and Busparrefi lls today Peripheral edema 0302783 00 R60.9 HCTZ not helping muchwill switch to Lasix QODwill give potassium with Lasix Discharge from right nipple 8048255019 3966361 N64.52 presents x 1 monthhx of right breast abscess with I&D at [facility] order prolactin level and thyroidpt is getting scheduled for mammogram Vitamin B1 2 deficiency (non anemic) 02894933 E53.8 refill med Dyspnea on exertion 6084 5006 R06.09 resend PFT to [facility] Prediabetes 189941809 R7 3.03 recheck A1C--5.7% [id number] Shelley Hong MD [facility] Medicine- Dept 648 [address] [facility] [place] [address] 10/05/2023 09:58:32 10/05/2023 11:30:51 Peripheral edema 677899709 R60.9 Mass of right breast 329 1408571 4095063 N63.10 Will refer her back to general surgeon as with biopsy coming back 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 Impaired g lucose tolerance 1342608 R73.03 She is borderline diabetic. Morbid obesity 897053208 E66.01 Did discuss this in detail. Discussed bariatric surgery, but she wishes to not stop smoking. Feel she would not do well with adipex as she reports her blood pressure numbers are going up. Tobacco de pendence caused by cigarettes 8187542067 2837417 F17.210 Did discuss in detail today. [id number] Angela Scott NP [facility] Medicine- Dept 641 0546 [employer] [address] 01/26/2024 09:49:18 01/26/2024 10:13:29 Mass of right breast 8077773678 1893837 N63.10 enc. her to call Dr. Ricci appt with the Breast clinic on 02/14/24 start Levaquin Dark yellow urine 965144 001 R39.89 urine has trace of blood but otherwise normal [id number] Angela Scott NP [facility] Medicine- Dept 778 7346 [employer] [address] 06/15/2024 11:36:10 06/15/2024 12:16:51 Dysmenorrhea 040319401 N94.6 strongly enc. pt to make appt with [facility] to discuss an uterine ablationno t a candidate for control due to tobacco usedecline s Mirena/Nex planon Irregular periods 874535 07 N92.6 pt has lost about 50 lbsthis may be contributi ng to her cycle irregulari ty Bipolar disorder 2368055 4 F31.9 refill medsneeds to make f/u with her cutter gas [id number] Angela Scott NP [facility] Medicine- Dept 644 0470 [employer] [address] 12/27/2024 10:38:23 12/27/2024 11:37:01 Discharge from right nipple 3346963108 1087611 N64.52 will refer to [facility] Breast surgery--Ellen Mir CBC and CMP Attention deficit hyperactivity disorder, predominantly inattentive type 99466731 F90.0 stable, refill med Vitamin B1 2 deficiency (non anemic) 06678283 E53.8 recheck Vitamin B12 and folate Prediabetes 914768584 R7 3.03 recheck A1C Screening for cardiovascular system disease 367342434 Z13.6 444077 check lipids Fatigue 52408506 R53.83 9163950 check thyroid Health Concerns Section Related Observation LastModified by Organization Detai ls LastModified Time None Recorded Concern Status LastModified by Organization Details LastModified Time None Recorded Advance Directives Directive None Recorded Payers Insurance Date Sequence Insurance Name Policy Number Policy Centeno Covered Member ID Centeno Member ID Guarantor Name 01/03/2021 1 [employer] (MEDICAID REPLACEMENT - HMO) [id number] Mohini Forde [id number] Mohini Forde 02/13/2021 1 [facility] (MEDICAID HMO) Mohini Forde [id number] Mohini Forde 12/26/2024 1 [facility] (MEDICAID HMO) Mohini Forde [id number] Mohini Forde Notes Date Note Type Note [...] mammogram yet. We did rescind this to [facility]. Patient states that her new complaint today is right breast nipple discharge. Been present for approximately 1 month. Patient states she is not really sure what is causing it. She has had a breast abscess in this breast a few months ago. Angela Scott NP [address] [place] [address], [address], [place], [address], [place] 08/03/2023 12:57:01 10/05/2023 text/html She comes to [...] to nipple piercing x2. Shelley Hong MD [address] [place] [address], [address], [place], [address], [facility] & [place] 10/05/2023 10:41:36 01/26/2024 text/html Patient presents today [...] have her urine checked. Angela Scott NP [address] [place] [address], [address], [place], [address], [facility] - [facility] & [place] 01/26/2024 13:31:50 06/15/2024 text/html Patient presents today [...] her tobacco use. Angela Scott NP [address] [facility], [address], [place], [address], [facility] & [place] 06/15/2024 13:06:12 12/27/2024 text/html Patient presents today in the clinic for routine follow-up on her chronic health issues. Patient states that about 3 weeks ago she started having more nipple discharge and pain in her breast. She does have a history of an abscess in her right breast. She last saw back in 2023 and was on a course of doxycycline. She states that this has never fully resolved over the past 2 years. She has had 2 I and D's with Dr. [facility]lvarez in [facility]. Patient states she just wants this taken care of. She is open to seeing a new provider. Patient is due for labs. She states that she was seeing Krystal Philippe in [place] for her psychiatric issues but she is now moved. She would like to have me refill her medicines. She is stable at this time. Angela Scott NP [address], [address], [place], [address], [place] [facility] & [place] 12/27/2024 15:08:48 OBGyn Episode No OBEpisode recorded.
--- OUTSIDE RECORDS SUMMARY | 2025-06-12 09:49 | XMS_ITS | Clinical Summary ---
Author Organization Healthcare Address [address] [place] [address] Care Team Providers Care Fiber Optics Supervisor Name Role Phone Katina Scott APRN Primary Care Provider +1- [phone] Allergies No known active allergies Medications * [...] 04/25/2025 Refill [facility] [address] [place] [address] Gisel Villalba APRN Chronic mastitis of right breast from Last 3 Months Immunizations Immunization Administration Dates Next Due Tdap 04/15/2021 Social History Tobacco Use Types Packs/Day Years Used Date Smoking Tobacco: Every Day Cigarettes 1 20.3 Started: 02/13/2005 Smokeless Tobacco: Never Tobacco Cessation:Ready [...] Info) Description 08/13/2025 9:50 AM EST Appointment [facility] [address] [place] [address] 08/13/2025 10:30 AM EST Office Visit [facility] [address] [facility], [address] [place] [address] Jazmin Brink, PA [address] [address] Health Maintenance Due Date Last Done Comments [...] 2021 [facility]HPV/Cotest 2021 [facility]-Depression Screening 02/13/2025 2024 LND-USFHS-02 Vaccine (1 - 2023- season) 2025 [facility]-Influenza [...] age to complete this topic Insurance [address] [place] [id number] [facility] MEDICAID Care Teams Fiber Optics Supervisor Relationship Specialty Start Date End Date Katina Scott APRN [address] [place] [address] [facility] - General 02/14/24
--- OUTSIDE RECORDS SUMMARY | 2025-06-12 09:50 | XMS_ITS | Encounter Summary ---
Author Organization Healthcare Address [address] [place] [id number] Care Team Providers Care Solar Energy Technician Name Role Phone Katina Scott APRN Primary Care Provider +1- [phone] Reason for Visit * Reason Comments Med Refill Encounter Details Date Type Department Care Team (Late Contact Info) Description 04/25/2025 Refill [facility] [address] [place] [address] Gisel Villalba APRN [address] [facility] [address] [place] [address] Chronic mastitis of right breast Social History Tobacco Use Types Packs/Day Years Used Date Smoking Tobacco: Every Day Cigarettes 1 20.3 Started: 02/13/2005 Smokeless Tobacco: Never Alcohol Use [...] [facility] [address] [facility] [address] [place] [address] 08/13/2025 10:30 AM EST Office Visit [facility] [address] [facility], [address] [place] [address] Jazmin Brink PA [address] [address] documented as of this encounter Visit Diagnoses Diagnosis Chronic mastitis of right breast documented in this encounter Additional Health Concerns Assessment Noted Time A fall risk assessment has been complete d for the patient 01/24/2025 10:55 AM EDT A Body Mass Index follow-up plan has been documented for the patient 01/25/2025 12:22 PM EDT documented as of this encounter Care Teams Solar Energy Technician Relationship Specialty Start Date End Date Katina Scott APRN [address] [place] [address] PCP - General 02/14/24 documented as of this encounter
--- OUTSIDE RECORDS SUMMARY | 2025-06-12 09:50 | XMS_ITS | Continuity of Care Document ---
Author Organization [employer], [facility] [employer] [facility] Address [address] [place] [phone] Care Team Providers Care Quoter Name Role Phone ANGELA MCCOY Primary Care Provider Assessment No assessment recorded. Plan of Treatment Reminders Order Date Submit Date Provider Last Modified By Organization Details Last Modified Time Details Appointments None recorded. Lab PPD (purified protein derivative) , skin test 2024 025 [email or web address] 5 [facility] [employer] [facility], [address] [place] [address], [phone], 14:28:54 Referral None recorded. Procedures None recorded. Surgeries None recorded. Imaging None recorded. Medication Orders tuberculin PPD 5 tub. unit/0.1 mL intradermal injection solution 2024 025 [email or web address] 5 [id number], [address] [place], [address], 14:28:54 Patient TargetsNo targets recorded. Patient InstructionsNo instructions recorded. Reason for Referral None Reported. Results Created Date Observation Date Name Description Value Unit Range Abnormal Flag Note LastModifiedBy Organization Detail LastModifiedTime 05/17/2005/17/2025 PPD (buzz fied prote in deriv ative ), skin test TB negati ve Not Available [facility] [address], [phone], 05/15/2025 08:26:55 Result Notes None recorded. Procedures Surgical History Date Name Laterality Status Provider Name and Address Organization Details Recorded Time Tubal Ligation completed [facility] [employer] 06/28/2024 13:49:00 cholecystectomy completed [facility] [employer] 06/28/2024 13:49:08 Breast Surgery completed [facility]ACKY [employer] 06/28/2024 13:49:29 Imaging Results None recorded. Procedure [...] Not Available Not Available Not Available Vitals None Recorded Social History Question Answer Notes LastModified by Organizat ion Details LastModified Time Tobacco Smoking Status Current Every Day Smoker Debora chapa [facility] [employer] 04/19/2025 08:24:32 What Is Your Level Of Caffeine Consumption? Heavy [email or web address] Information not available 04/19/2025 What Type Of Diet Are You Following? REGULAR Information not available 04/19/2025 What Is The Highest Grade Or Level Of School You Have Completed Or The Highest Degree You Have Received? AW21218-3 [email or web address] Information not available 04/19/2025 Do You Engage In Moderate/heavy Exercise (e.g. Brisk Walk, Jogging, Strength Training, Etc)? Yes Information not available 04/19/2025 What Was The Date Of Your Most Recent Tobacco Screening? 04/19/2025 [email or web address] Information not available 04/19/2025 Do You Use Protection During Sex? No Information not available 06/28/2024 Do You Use Protection Against STDs? No Information not available 06/28/2024 What Is Your Relationship Status? Information not available 06/28/2024 Are You Sexually Active? Yes Information not available 06/28/2024 At What Age Did You Start Smoking Tobacco? 15 [email or web address] Information not available 04/19/2025 How Much Tobacco Do You Smoke? 1 PPW [email or web address] Information not available 04/19/2025 How Many Years Have You Smoked Tobacco? 20 [email or web address] Information not available 04/19/2025 What Contraceptive Method Was Reported At Start Of This Visit? Female Sterilization Information not available 06/28/2024 Do You Have Any Dietary Restrictions? No [email or web address] Information not available 04/19/2025 Sex: Female Functional Status Question Answer Note LastModified by Organizat ion Details LastModified Time Do you use any illicit or recreational drugs? No Information not available 04/19/2025 What is your level of alcohol consumption? None Information not available 04/19/2025 Are you currently employed? Yes [email or web address] Information not available 04/19/2025 Do you have transportation difficulties? No [email or web address] Information not available 04/19/2025 Are you able to care for yourself independently? Yes [email or web address] Information not available 04/19/2025 Mental Status Question Answer Note LastModified by Organization D etails LastModified Time Do you feel stressed (tense, restless, nervous, or anxious, or unable to sleep at night)? [id number] [email or web address] Information not available 04/19/2025 Family History Nothing [...] ICD10 Code Diagnosis IMO Codes Diagnosis Note [id number] ROMULOKAREEM WONGCHRISTIAN [address] [phone] 04/19/2025 08:15:42 04/19/2025 09:57:29 Physical examination [id number] Z00.00 [id number] Discussed healthy habits, encouraged smoking cessation. [id number] Halley Russ PA-C [address] [phone] 05/15/2025 08:26:18 05/18/2025 13:23:28 Injection given [id number] Z92.29 [id number] Health Concerns Section Related Observation LastModified by Organization Detai ls LastModified Time None Recorded Concern Status LastModified by Organization Details LastModified Time None Recorded Payers Encounter Date Sequence Insurance Name Policy Number Policy Centeno Covered Member ID Centeno Member ID Guarantor Name 05/15/2025 1 [facility] (MEDICAID H[facility]) Mohini Forde [id number] Mohini Forde OBGyn Episode No OBEpisode recorded.
[2025-06-12 14:40] LABS: Coronavirus 19, PCR Not Detected (NotDetected); Influenza A, PCR Not Detected (NotDetected); Influenza B, PCR Not Detected (NotDetected)
== END 2025-06-12 23:59 | disposition home or self-care (01) ==
LOC: RAD 09:32
PROVIDERS: PCP Nurse Practitioner Family; Visit Provider Student in an Organized Health Care Education/Training Program
DX: R05.9 Cough, unspecified (principal); R52 Pain, unspecified
CPT/HCPCS: 71046; 87631